=== PATIENT | female | born 1950 | race Caucasian/White ===

== ENCOUNTER → 2017-01-04 | Outpatient (CLI) | payer OTHER, MEDICAID ==
[2017-01-04 10:38] LABS: CREATININE 2.25 mg/dL (0.55-1.02)
--- NOTE | 2017-01-04 12:28 | CT ---
HISTORY: Weight loss, nicotine dependent Study: CT chest without contrast Comparison: None Technique: Axial non contrast images with coronal and sagittal reformats. Dose reduction procedures were use with MA/kv adjusted for body size. Intravenous contrast could not be administered due to th e patient's renal insufficiency. Findings: Examination of the mediastinum demonstrated no evidence for mediastinal masses. No enlarged mediasti nal or hilar adenopathy is identified. Minimal calcific atherosclerotic change is present in the aor ta. No pleural effusions are identified. No chest wall or axillary abnormality is identified. There is some spondylitic change in the thoracic spine. The lungs are mildly hyperinflated. No acute alveo lar infiltrates, areas of consolidation, nodules, masses, or bronchiectasis is identified. There is mild peribronchial thickening consistent with bronchitis which could be acute, chronic, or both. IMPRESSION: Mild hyperinflation Peribronchial thickening consistent with bronchitis which could be acute, chronic, or both Reported By:
--- NOTE | 2017-01-04 12:33 | CT ---
HISTORY: Weight loss Study: CT abdomen pelvis without contrast Comparison: None Technique: Axial non contrast images with coronal and sagittal reformats. Dose reduction procedures were used with MA/kv adjusted for body size. Intravenous contrast could not be administered due to t he patient's renal insufficiency. Findings: The lung bases are clear. The liver, spleen, adrenal glands, and pancreas are within normal limits t o the limitations of an unenhanced examination. The patient is status post cholecystectomy. There is dilatation of the common bile duct to 14 millimeters . This could be physiologic in due to post cho lecystectomy state however clinical and laboratory correlation is recommended in order to exclude an obstructive picture that would require evaluation with ERCP. The kidneys are unobstructed. No right renal calculi are identified. There is a 1.5 millimeter nonobstructing left upper pole renal calcul us. No ureteral calculi are identified. Calcific atherosclerotic change is present in a nondilated a bdominal aorta. No intraperitoneal or retroperitoneal lymphadenopathy is identified. The appendix is not identified. There are no secondary signs of appendicitis. There are no findings suggestive of d iverticulitis or colitis. Examination of the pelvis demonstrated no evidence for pelvic masses, pelv ic fluid, or pelvic lymphadenopathy. No bladder abnormality is identified. No lytic or blastic skele gagandeep lesions are identified. IMPRESSION: Dilatation of the common bile duct which may be physiologic and due to post cholecystectomy state, h owever, see recommendation as above No other significant findings on unenhanced examination Reported By:
== END ==
LOC: RAD 10:10
PROVIDERS: ATTEND Internal Medicine
DX: R63.4 Abnormal weight loss (principal); Z87.891 Personal history of nicotine dependence; R06.02 Shortness of breath; R05 Cough
CPT/HCPCS: 36415; 71250; 74176; 82565; 84520

== ENCOUNTER → 2017-01-23 | Outpatient (CLI) | payer OTHER, MEDICAID | LOC: RAD 10:14 | PROVIDERS: ATTEND Internal Medicine | DX: Z12.31 Encounter for screening mammogram for malignant neoplasm of breast (principal) | CPT/HCPCS: 77067 ==

== ENCOUNTER 2017-01-29 19:25 | Inpatient (IN) | payer MEDICARE, MEDICAID ==
--- NOTE | 2017-01-29 19:56 | DR.GENAD ---
HPI - PCP Primary Care Physician: sandi - HPI Comment HPI Comment: WORSE TODAY. PULSE LOW AND PATIENT HAVE NEAR SYNCOPAL FEELING. VERY WEAK. NO FEVER OR DYSURIA. NO NAUSEA OR VOMITING. - Complaint/Symptoms Chief Complaint Doctors Comments: GENERALIZE WEAKNESS, ANOREXIA, WEIGHT LOSS AND GENERAL MALAISE FOR SOME TIME. Chief Complaint:: weakness, tingling - Nurses notes reviewed Nurses Notes Review: Yes - Source History Provided: Patient, Family Member - Mode of Arrival Mode of Arrival: Wheelchair - Timing Onset of Chief Complaint: 01/26/17 Came on: Suddenly - Duration Duration: Constant Duration: Days - Severity Severity: Moderate PMH - PMH Past Medical History: Yes Past Medical History: Diabetes, Dyslipidemia, Hypertension Past Surgical History: Yes Surgical History: Appendectomy, Cholecystectomy, Hysterectomy - Family History History of Family Medical Conditions: Yes Family Medical History: Cancer - Social History Does patient currently use any type of tobacco product: No Have you used tobacco products in the last 12 months: No Type of Tobacco Use: None Does any household member use tobacco: No Alcohol Use: None Do you use any recreational Drugs:: No Lives With: Family Lives Where: Home - infectious screening In the last 2 months have you had wt loss of >10#?: NO Have you had fever, night sweats or hemotysis?: No Have you traveled outside the country in the last 6 months?: No Isolation: Standard ROS - Review of Systems Constitutional: Malaise, Weakness, Fatigue, Loss of Appetite. negative: Chills , Fever Eyes: No Symptoms Reported. negative: Eye Pain, Discharge ENTM: negative: Ear Pain, Nose Discharge, Nose Congestion, Throat Pain Respiratoy: Short of Breath (ON EXERSION). negative: Productive Cough, Non- Productive Cough, Wheezing, Hemoptysis Cardiovascular: negative: Chest Pain, Edema, Palpitations (BRADYCARDIA), Syncope (NEAR SYNCOPE) Gastrointestinal/Abdominal: No Symptoms Reported. negative: Abdominal Pain, Diarrhea, Nausea, Vomiting Genitourinary: No Symptoms Reported. negative: Dysuria, Frequency, Hematuria Neurological: Weakness, Dizziness. negative: Headache Musculoskeletal: Muscle Pain Integumentary: No Symptoms Reported Hematologic/Lymphatic: Easy Bruising Endocrine: No Symptoms Reported All Other Systems: Reviewed and Negative PE - Vital Signs Vitals: Temperature 98.5 F Pulse Rate [Left Radial] 73 Pulse Rate 42 Respiratory Rate 20 Blood Pressure [Left Arm] 180/77 Blood Pressure 199/78 O2 Sat by Pulse Oximetry 94 - General Limitations: No Limitations General Appearance: Alert - Head Head Exam: Normal Inspection - Eyes Eye exam: Normal Appearance - ENT ENT Exam: Normal External Ear Exam External Ear Exam: Normal External Inspection TM/Canal Exam: Bilateral Normal Nose Exam: Normal Nose Exam Mouth Exam: Normal Inspection Throat Exam: Normal Inspection - Neck Neck Exam: Trachea Midline - Chest Chest Inspection: Symmetric Chest Wall Rise - Respiratory Respiratory Exam: Normal Lung Sounds Bilat Respiratory Exam: Bilateral Clear to Auscultation - Cardiovascular Cardiovascular Exam: Regular Rate, Normal Rhythm, Normal Heart Sounds - Abdominal Exam Abdominal Exam: Normal Bowel Sounds, Soft. negative: Tenderness - Extremities Extremities Exam: Normal Inspection - Back Back Exam: Normal Inspection - Neurologic Neurological Exam: Alert, Oriented X3, CN II-XII Intact. negative: Motor Sensory Deficit, Reflexes Normal - Skin Skin Exam: Normal Color MDM - Additional Information Additional Information Obtained From: Family - Differential Diagnosis Differential Diagnosis: GENERALIZE WEAKNESS, BRADYCARDIA, NV, ELECTROLYTE ABNORMALITY Course - Treatment Treatment: SEE ORDERS. IV FLUIDS AND IV POTASSIUM IN ED. HELD IN ED UNTILL TROPONIN AND CARDIAC ENZYMES REPEATED IN 3 TO 4 HOURS. - Education/Counseling Education/Counseling: Patient, Family, Education Educated On: Treatment, Diagnosis, Needs for Follow Up ROR - Labs Reviewed Laboratory Results Reviewed?: Yes Result Diagrams: 01/31/17 04:46 01/31/17 04:46 Laboratory: WBC 9.5 X10^3/uL (3.6-10.0) 01/29/17 20:51 RBC 4.08 X10^6/uL (3.5-5.4) 01/29/17 20:51 Hgb 12.0 g/dL (12.0-16.0) 01/29/17 20:51 Hct 33.1 % (36.0-47.0) L 01/29/17 20:51 MCV 81.2 fL (80.0-100.0) 01/29/17 20:51 MCH 29.3 pg (27.0-34.0) 01/29/17 20:51 MCHC 36.1 g/dL (33.0-35.0) H 01/29/17 20:51 RDW 13.7 % (11.6-16.5) 01/29/17 20:51 Plt Count 257 X10^3/uL (150.0-450.0) 01/29/17 20:51 MPV 9.5 fL (7.4-11.0) 01/29/17 20:51 Neut % 62.8 % (42.0-75.0) 01/29/17 20:51 Lymph % 29.8 % (21.0-51.0) 01/29/17 20:51 Brantley % 4.9 % (0.0-13.0) 01/29/17 20:51 Eos % 1.7 % (0.9-2.9) 01/29/17 20:51 Baso % 0.8 % (0.2-1.0) 01/29/17 20:51 Neut # 6.0 x10^3/uL (2.2-4.8) H 01/29/17 20:51 Lymph # 2.8 X10^3/uL (1.3-2.9) 01/29/17 20:51 Brantley # 0.5 x10^3/uL (0.3-0.8) 01/29/17 20:51 Eos # 0.2 x10^3/uL (0.0-0.2) 01/29/17 20:51 Baso # 0.1 X10^3/uL (0.0-0.1) 01/29/17 20:51 Absolute Nucleated RBC 0.0 /100WBC 01/29/17 20:51 Sodium 137 mmol/L (136-145) 01/29/17 20:51 Corrected Sodium 137 mmol/L (136-145) 01/29/17 20:51 Potassium 1.7 mmol/L (3.5-5.1) L* 01/30/17 00:30 Chloride 92 mmol/L (98-107) L 01/29/17 20:51 Carbon Dioxide 38.9 mmol/L (21-32) H 01/29/17 20:51 BUN 13 mg/dL (7-18) 01/29/17 20:51 Creatinine 2.04 mg/dL (0.55-1.02) H 01/29/17 20:51 Est GFR (MDRD) Af Amer 31 (>60) L 01/29/17 20:51 Est GFR (MDRD) Non-Af 26 (>60) L 01/29/17 20:51 Glucose 114 mg/dL (65-99) H 01/29/17 20:51 Calcium 7.7 mg/dL (8.5-10.1) L 01/29/17 20:51 Corrected Calcium 9.0 mg/dL (8.5-10.1) 01/29/17 20:51 Magnesium 1.4 mg/dL (1.7-2.9) L 01/30/17 00:30 Total Bilirubin 1.30 mg/dL (0.2-1.0) H 01/29/17 20:51 AST 134 Units/L (15-37) H 01/29/17 20:51 ALT 47 Units/L (12-78) 01/29/17 20:51 Alkaline Phosphatase 78 Units/L (46-116) 01/29/17 20:51 Creatine Kinase 3253 Units/L (26-192) H 01/30/17 00:30 CK-MB (CK-2) 6.6 ng/mL (0-4.0) H* 01/30/17 00:30 CK/CKMB % Calc 0.2 % (<4) 01/30/17 00:30 Troponin I 0.44 ng/mL (0-1.5) 01/30/17 00:30 B-Natriuretic Peptide 568 pg/mL (0-79) H* 01/29/17 20:51 Total Protein 6.3 g/dL (6.4-8.2) L 01/29/17 20:51 Albumin 2.4 g/dL (3.4-5.0) L 01/29/17 20:51 Globulin 3.9 g/dL (2.5-4.5) 01/29/17 20:51 Albumin/Globulin Ratio 0.6 Ratio (1.1-2.1) L 01/29/17 20:51 Specimen Type Clean catch urine 01/29/17 23:25 Urine Color Pale yellow (YELLOW) 01/29/17 23:25 Urine Appearance Clear (CLEAR) 01/29/17 23:25 Urine pH 7.0 (5.0 - 8.0) 01/29/17 23:25 Ur Specific Magazine 1.005 (1.000-1.030) 01/29/17 23:25 Urine Protein 3+ (NEGATIVE) 01/29/17 23:25 Urine Glucose (UA) Negative (NEGATIVE) 01/29/17 23:25 Urine Ketones Negative (NEGATIVE) 01/29/17 23:25 Urine Occult Blood 5+ (NEGATIVE) 01/29/17 23:25 Urine Nitrite Negative (NEGATIVE) 01/29/17 23:25 Urine Bilirubin Negative (NEGATIVE) 01/29/17 23:25 Urine Urobilinogen Normal (NORMAL) 01/29/17 23:25 Ur Leukocyte Esterase Negative (NEGATIVE) 01/29/17 23:25 Urine RBC 25-30 /HPF (NEGATIVE) 01/29/17 23:25 Urine WBC 0-3 /HPF (NEGATIVE) 01/29/17 23:25 Ur Squamous Epith Cells Rare /HPF (NEGATIVE) 01/29/17 23:25 Urine Bacteria Trace /HPF (NEGATIVE) 01/29/17 23:25 Ur Culture Indicated? No/not indicated 01/29/17 23:25 - XRAY XRAY Interpreted by: Radiologist XRAY Findings: REPORT DISCUSS WITH PATIENT AND HER . - EKG Rhythm: NSR (EKG NOTED) - Diagnosis Discharge Problem: Acute hypokalemia, Abnormal cardiac enzyme level, Generalized weakness, Electrolyte abnormality, Bradycardia Rhabdomyolysis Qualifiers: Rhabdomyolysis type: non-traumatic Qualified Code(s): M62.82 - Rhabdomyolysis - Discharge Plan Disposition: 09 ADMITTED INPATIENT Condition: Stable - Follow ups/Referrals - Instructions
[2017-01-29 21:05] LABS: BASOPHILS # (AUTO) 0.1 X10^3/uL (0.0-0.1); BASOPHILS % (AUTO) 0.8 % (0.2-1.0); EOSINOPHILS # (AUTO) 0.2 x10^3/uL (0.0-0.2); EOSINOPHILS % (AUTO) 1.7 % (0.9-2.9); HEMATOCRIT 33.1 % (36.0-47.0); LYMPHOCYTES # (AUTO) 2.8 X10^3/uL (1.3-2.9); LYMPHOCYTES % (AUTO) 29.8 % (21.0-51.0); MEAN CORPUSCULAR HEMOGLOBIN 29.3 pg (27.0-34.0); MEAN CORPUSCULAR HGB CONC 36.1 g/dL (33.0-35.0); MEAN CORPUSCULAR VOLUME 81.2 fL (80.0-100.0); MEAN PLATELET VOLUME 9.5 fL (7.4-11.0); MONOCYTES # (AUTO) 0.5 x10^3/uL (0.3-0.8); MONOCYTES % (AUTO) 4.9 % (0.0-13.0); NEUTROPHILS % (AUTO) 62.8 % (42.0-75.0); PLATELET COUNT 257 X10^3/uL (150.0-450.0); RED BLOOD COUNT 4.08 X10^6/uL (3.5-5.4); RED CELL DISTRIBUTION WIDTH 13.7 % (11.6-16.5); WHITE BLOOD COUNT 9.5 X10^3/uL (3.6-10.0)
[2017-01-29 21:43] LABS: ALBUMIN 2.4 g/dL (3.4-5.0); CALCIUM 7.7 mg/dL (8.5-10.1); CARBON DIOXIDE 38.9 mmol/L (21-32); CREATININE 2.04 mg/dL (0.55-1.02); TOTAL PROTEIN 6.3 g/dL (6.4-8.2); TROPONIN I 0.38 ng/mL (0-1.5)
[2017-01-29 21:44] LABS: CKMB % 0.2 % (<4)
[2017-01-29 21:46] LABS: CREATINE KINASE MB 5.5 ng/mL (0-4.0)
--- NOTE | 2017-01-29 22:20 | RAD ---
Chest AP portable Indication: Weakness. Findings: Lungs are clear. Heart size upper limits of normal. There is no pneumothorax, effusion or consolidation. Shoulder degenerative changes noted. Impression: No acute chest process or change from CT of January 04, 2017. Reported By:
[2017-01-29] MEDS: NS + KCL 40 MEQ/L 1,000 ML IV SCH (22:24)
[2017-01-29 23:53] LABS: BILIRUBIN,URINE NEGATIVE (NEGATIVE); BLOOD/HEMOGLOBIN,URINE 5+ (NEGATIVE); GLUCOSE, URINE NEGATIVE (NEGATIVE); KETONES,URINE NEGATIVE (NEGATIVE); LEUKOCYTE ESTERASE ,URINE NEGATIVE (NEGATIVE); NITRITES,URINE NEGATIVE (NEGATIVE); PROTEIN,URINE 3+ (NEGATIVE); UROBILINOGEN,URINE NORMAL (NORMAL)
[2017-01-29 23:59] LABS: APPEARANCE,URINE CLEAR (CLEAR); BACTERIA,URINE TRACE /HPF (NEGATIVE); COLOR,URINE PALE YELLOW (YELLOW); RBC,URINE 25-30 /HPF (NEGATIVE); SQUAMOUS EPITHELIAL CELL,UR RARE /HPF (NEGATIVE)
[2017-01-30] MEDS ORDERED: POTASSIUM CHLORIDE LIQ 20 MEQ UDC PO ONE (01:03)
[2017-01-30 01:37] LABS: TROPONIN I 0.44 ng/mL (0-1.5)
[2017-01-30] MEDS ORDERED: POTASSIUM CHLORIDE LIQ 20 MEQ UDC ONE (01:37)
[2017-01-30 01:38] LABS: CKMB % 0.2 % (<4)
[2017-01-30 01:39] LABS: CREATINE KINASE MB 6.6 ng/mL (0-4.0)
[2017-01-30] MEDS ORDERED: MAGNESIUM SULFATE 50% INJ IM ONE (01:51)
[2017-01-30] MEDS ORDERED: MAGNESIUM SULFATE 50% INJ ONE (01:52)
[2017-01-30 04:45] VITALS: BMI 25.4
[2017-01-30 06:04] LABS: BASOPHILS # (AUTO) 0.1 X10^3/uL (0.0-0.1); BASOPHILS % (AUTO) 1.1 % (0.2-1.0); EOSINOPHILS # (AUTO) 0.1 x10^3/uL (0.0-0.2); HEMATOCRIT 34.9 % (36.0-47.0); HEMOGLOBIN 12.4 g/dL (12.0-16.0); LYMPHOCYTES # (AUTO) 2.3 X10^3/uL (1.3-2.9); LYMPHOCYTES % (AUTO) 26.1 % (21.0-51.0); MEAN CORPUSCULAR HEMOGLOBIN 29.4 pg (27.0-34.0); MEAN CORPUSCULAR HGB CONC 35.7 g/dL (33.0-35.0); MEAN CORPUSCULAR VOLUME 82.3 fL (80.0-100.0); MEAN PLATELET VOLUME 9.8 fL (7.4-11.0); MONOCYTES # (AUTO) 0.5 x10^3/uL (0.3-0.8); MONOCYTES % (AUTO) 5.8 % (0.0-13.0); NEUTROPHILS # (AUTO) 5.8 x10^3/uL (2.2-4.8); PLATELET COUNT 243 X10^3/uL (150.0-450.0); RED BLOOD COUNT 4.24 X10^6/uL (3.5-5.4); RED CELL DISTRIBUTION WIDTH 13.9 % (11.6-16.5); WHITE BLOOD COUNT 8.8 X10^3/uL (3.6-10.0)
[2017-01-30 06:06] LABS: ALANINE AMINOTRANSFERASE 47 Units/L (12-78); ALBUMIN 2.3 g/dL (3.4-5.0); ALKALINE PHOSPHATASE 74 Units/L (46-116); ASPARTATE AMINO TRANSFERASE 126 Units/L (15-37); BLOOD UREA NITROGEN 13 mg/dL (7-18); CALCIUM 7.9 mg/dL (8.5-10.1); CARBON DIOXIDE 37.6 mmol/L (21-32); CHLORIDE 100 mmol/L (98-107); COR CA(FOR HYPOALB) 9.3 mg/dL (8.5-10.1); CREATININE 1.89 mg/dL (0.55-1.02); GLUCOSE 106 mg/dL (65-99); SODIUM 145 mmol/L (136-145); eGFR BLACK RACES 34 (>60); eGFR NON BLACK RACES 28 (>60)
[2017-01-30 06:51] LABS: TROPONIN I 0.41 ng/mL (0-1.5)
[2017-01-30 06:54] LABS: CKMB % 0.2 % (<4); CREATINE KINASE MB 8.7 ng/mL (0-4.0)
[2017-01-30] MEDS: NS + KCL 40 MEQ/L 1,000 ML IV SCH (10:13)
[2017-01-30] MEDS: MAGNESIUM SULFATE 1 GM/100 mL PREMIX 1 GM/100 ML BAG IV SCH ×2 (11:46→12:58)
[2017-01-30 13:44] LABS: TROPONIN I 0.33 ng/mL (0-1.5)
[2017-01-30 13:48] LABS: CREATINE KINASE MB 11.7 ng/mL (0-4.0)
[2017-01-30 13:49] LABS: CKMB % 0.3 % (<4)
[2017-01-30] MEDS ORDERED: PATIENT'S HOME MEDICATION (Losartan/Hydrochlorothiazide [Hyzaar 100-25 Tablet] 1 TAB) PO SCH (14:15)
[2017-01-30] MEDS: PriLOSEC PO SCH (14:25)
--- NOTE | 2017-01-30 14:25 | DR.H&P ---
H&P - History & Physical for Day of: H&P Date: 01/30/17 - Chief Complaint Chief Complaint: IS A 66 YEAR OLD PATIENT OF OURS WHO PRESENTED TO THE EMERGENCY ROOM WITH COMPLAINTS OF WEAKNESS, TINGLING IN HANDS, LOSS OF APPETITE, UNEXPLAINTED WEIGHT LOSS, AND LOW HEART RATE. PATIENT REPORTS THAT SHE WEIGHED 185 LBS. TWO MONTHS AGO AND IS NOW 148 LBS. SHE REPORTS THAT THE WEAKNESS HAS PROGRESSIVLY GOTTEN WORSE OVER THE LAST THREE MONTHS. SHE WAS ALSO NOTED WITH COMPLAINTS OF BILATERAL LOWER EXTREMITY PAIN AND CRAMPING. SHE RATES PAIN A 6/10. ON ARRIVAL TO ER, VITALS WERE 98.5-42-16-98%-199/78. CBC WNL EXCEPT HCT 33.1. CMP REPORTED SODIUM 137, POTASSIUM CRITICAL LOW OF 1.5, CHLORIDE 92, CARBON DIOXIDE 38.9, CREATININE 2.04, GLUCOSE 114, CALCIUM 7.7, MAGNESIUM 1.4, TOTAL BILI 1.30, AST 134, CREATININE KINASE 3510, CK-MB CRITICAL HIGH OF 5.5. BNP 568, TOTAL PROTEIN 6.3, ALBUMIN 2.4. SHE WAS GIVEN POTASSIUM AND MAGNESIUM SUPPLEMENTS, HOWEVER, POTASSIUM REMAINED LOW AT 1.9 AND MAGNESIUM REMAINED LOW AT 1.4. CHEST XRAY WITHIN NORMAL LIMITS. HEART RATE WAS IN THE 40S ON ARRIVAL TO ER, BUT WHEN EKG WAS OBTAINED, PATIENT WAS NOTED TO BE IN ATRIAL FIBRILLATION. WE ADMITTED PATIENT FOR FURTHER TREATMENT AND EVALUATION. WE STARTED HER ON NS WITH 40MEQ KCL AT 80ML/HR, AND OTBS ACHS. WE PLAN TO CONTINUE SUPPLEMENTING WITH POTASSIUM AND MAGNESIUM. WE PLAN TO RECHECK LABS AND FOLLOW UP WITH PATIENT IN AM. ON THE MORNING FOLLOWING ADMISSION, CREATININE KINASE NOTED TO BE 3253, 3688. CK-MB 6.6, 8.7. TROPONIN 0.44, 0.41. PATIENT REPORTS THAT SHE WAS RECENTLY STARTED ON CRESTOR 40MG PO @ HS. I BELIEVE THAT THE PATIENT HAS RHABDOMYOLYSIS SECONDARY TO THE HIGH DOSE OF STATIN. WE WILL DISCONTINUE THE CRESTOR FROM HER HOME MEDICATIONS, CONTINUE IV FLUIDS, AND CONTINUE TO MONITOR. - Allergies Allergies/Adverse Reactions: Allergies Allergy/AdvReac Type Severity Reaction Status Date / Time cefoperazone [From Cefobid] Allergy Verified 01/29/17 20:52 ciprofloxacin [From Cipro] Allergy Verified 01/29/17 20:55 clindamycin Allergy Verified 01/29/17 20:55 gentamicin Allergy Verified 01/29/17 20:55 hydroxyzine [From Vistaril] Allergy Verified 01/29/17 20:53 memantine [From Namenda] Allergy Verified 01/29/17 20:55 Penicillins Allergy Verified 01/29/17 20:52 - Past Medical History Past Medical History: Anemia, Arthritis, Dementia, Diabetes, Dyslipidemia, GERD , Hypertension, PUD Additional Medical History: fibromyalgia, rheumatoid arthritis - Past Surgical History Surgical History: Hysterectomy, Ortho Surgery, Other Additional Surgical History: cataract removal - Family History Family Medical History: Diabetes Mellitus, Cancer, [place], Hypertension - Social History Does patient currently use any type of tobacco product: No Have you used tobacco products in the last 12 months: No Type of Tobacco Use: None Does any household member use tobacco: No Alcohol Use: None Drug Use: None - Medications Home Medications: Alprazolam [XANAX 0.5 MG *] 0.5 mg PO HS 01/30/17 [History Confirmed 01/30/17] Cholecalciferol (Vitamin D3) [Vitamin D3] 2 tabs PO DAILY 01/30/17 [History Confirmed 01/30/17] Hydrocodone/Acetaminophen [Hydrocodon-Acetaminophen 5-325] 1 tab PO TID PRN [History Confirmed 01/30/17] Losartan/Hydrochlorothiazide [Hyzaar 100-25 Tablet] 1 tab PO DAILY 01/30/17 [ History Confirmed 01/30/17] Magnesium Oxide [Magnesium] 250 mg PO BID 01/30/17 [History Confirmed 01/30/17] Metformin HCl [GLUCOPHAGE 500 MG *] 500 mg PO DAILY 01/30/17 [History Confirmed 01/30/17] Omeprazole [PRILOSEC 20 MG *] 20 mg PO DAILY 01/30/17 [History Confirmed ] Ondansetron [Zofran Odt] 1 tab PO Q4-6H PRN 01/30/17 [History Confirmed 01/30/17 ] Rosuvastatin Calcium [Crestor] 40 mg PO HS 01/30/17 [History Confirmed 01/30/17] Tramadol HCl [ULTRAM 50 MG *] 50 mg PO TID 01/30/17 [History Confirmed 01/30/17] - Review of Systems Constitutional: See HPI, Weakness. denies: No Symptoms Reported, Fever, Chills , Sweats, Malaise, Other Eyes: No Symptoms Reported. denies: See HPI, Pain, Vision Change, Conjunctivae Inflammation, Eyelid Inflammation, Redness, Other ENT: No Symptoms Reported. denies: See HPI, Ear Pain, Ear Discharge, Nose Pain , Nose Discharge, Nose Congestion, Mouth Pain, Mouth Swelling, Throat Pain, Throat Swelling, Other Respiratory: No Symptoms Reported. denies: See HPI, Cough, Dry, Shortness of Breath, Hemoptysis, SOB with Excertion, Pleuritic Pain, Sputum, Wheezing, Other Cardiovascular: No Symptoms Reported, See HPI. denies: Chest Pain, Palpitations , Orthopnea, Paroxysmal Noc. Dyspnea, Edema, Light Headedness, Other Gastrointestinal: No Symptoms Reported. denies: See HPI, Nausea, Vomiting, Abdominal Pain, Diarrhea, Constipation, Melena, Hematochezia, Other Genitourinary: No Symptoms Reported. denies: See HPI, Dysuria, Frequency, Incontinence, Hematuria, Retention, Other Musculoskeletal: No Symptoms Reported, Leg Pain (BILATERAL LEG PAIN AND CRAMPING ). denies: See HPI, Shoulder Pain, Arm Pain, Back Pain, Hand Pain, Foot Pain, Neck Pain, Other Skin: No Symptoms Reported. denies: See HPI, Rash, Lesions, Jaundice, Bruising , Wound, Ecchymosis, Other Neurological: See HPI, Weakness. denies: No Symptoms Reported, Numbness, Incoordination, Change in Speech, Confusion, Seizures, Other - Physical Exam Vital Signs: Temperature 98.0 F Pulse Rate [Left Brachial] 70 Pulse Rate [Left Radial] 73 Respiratory Rate 19 Blood Pressure [Left Arm] 158/71 O2 Sat by Pulse Oximetry 98 Oriented: Normal. negative: Time, Person, Place, Not Oriented, Unable to test, Other Eyes: Normal. negative: Blurred Vision, Diplopia, Discharge, Pain, Redness, Photophobia, Other Ear: Normal. negative: Right, Left, Swelling, Ecchymosis, Hemotypanum, Abrasion , Laceration Nose: Normal. negative: Injected, Discharge, Blood, Other Throat: Normal. negative: Tonsillar Hypertrophy, Red, Exudate, Dry, Other Respiratory: Clear Throughout. negative: Diminished Throughout, Rhonchi Throughout, Rales Throughout, Wheezes Throughout, RUL Clear, RML Clear, RLL Clear, DAVID Clear, LML Clear, LLL Clear, RUL Diminished, RML Diminished, RLL Diminished, DAVID Diminished, LML Diminished, LLL Diminished, RUL Absent, RML Absent, RLL Absent, DAVID Absent, LML Absent, LLL Absent, RUL Rhonchi, RML Rhonchi , RLL Rhonchi, DAVID Rhonchi, LML Rhonchi, LLL Rhonchi, RUL Insp. Wheeze, RML Insp. Wheeze, RLL Insp. Wheeze, DAVID Insp.Wheeze, LML Insp.Wheeze, LLL Insp.Wheeze, RUL Exp. Wheeze, RML Exp. Wheeze, RLL Exp. Wheeze, DAVID Exp. Wheeze , LML Exp. Wheeze, LLL Exp. Wheeze, RUL Rales, RML Rales, RLL Rales, DAVID Rales, LML Rales, LLL Rales, RUL Rub, RML Rub, RLL Rub, DAVID Rub, LML Rub, LLL Rub, RUL Squeak, RML Squeak, RLL Squeak, DAVID Squeak, LML Squeak, LLL Squeak Cardiovascular: Bradycardia. negative: Normal, Tachycardia, Irregular, S3, S4, Systolic, Diastolic, Murmur, Edema, Other : Normal. negative: Dysuria, Hematuria, Frequency, Discharge, Testicular Pain , Bleeding, , Other Auscultation: Bowel Sounds: Normal. negative: Bruit, Absent, Increased, Decreased, High Pitched, Other Palpation: Normal. negative: Spleen Enlarged, Liver Enlarged, Mass Pulsatile, Other Tenderness: Normal. negative: Diffuse, RUQ, RLQ, LUQ, LLQ, Epigastric, Periumbilical, Suprapubic, Mild, Moderate, Severe, Rebound, Guarding, Rigidity, Other Skin: Normal. negative: Decreased Turgur, Rash, Papular, Macular, Maculopapular , Vesicular, Pustular, Petechial, Red, Tender, Hot, Diaphoresis, Wound, Bruising , Ecchymosis, Other Musculoskeletal: Right, Left, Leg, Tender. negative: Normal, Shoulder, Clavicle , Arm, Elbow, Forearm, Wrist, Hand, Hip, Thigh, Knee, Ankle, Foot, Back:Thoracic , Back:Lumbar, Back:Midline, Back:Paraspinous, Pelvis, Swelling, Deformity, Pulse Deficit, Motor Deficit, Sensory Deficit, Instability, Crepitance Psychiatric: Normal. negative: Anxiety, Depression, Agitation, Other Mood Description: Calm. negative: Angry, Apathetic, Depressed, Fearful, Flat, Happy, Hostile, Sad, Suspicious, Withdrawn, Anxious, Appropriate, Labile Affect: Normal. negative: Angry, Anxious, Depressed, Flat, Hysterical, Quiet, Violent Speech Pattern: Clear. negative: Appropriate, Unclear, Inappropriate, Delayed, Slurred, Excessive, Aphasic, Artificially Ventilated - Assessment/Plan (1) Hypokalemia Status: Acute Plan: Ns with 40meq KCL @ 80ml/hr, continue to monitor (2) Hypomagnesemia Status: Acute Plan: Magnesium Sulfate 2 gm iv x 1 dose, continue to monitor labs (3) Rhabdomyolysis Qualifiers: Rhabdomyolysis type: non-traumatic Encounter type: E Qualified Code(s): M62.82 - Rhabdomyolysis Status: Acute Plan: Discontinue Crestor, continue IVF, continue to monitor
[2017-01-30] MEDS ORDERED: GLUCOPHAGE PO SCH (15:00)
[2017-01-30] MEDS: NORCO 5/325 MG TAB PO PRN (17:19)
[2017-01-30] MEDS: XANAX PO SCH (20:28)
[2017-01-30] MEDS: MAG-OX TAB PO SCH (20:28)
[2017-01-30 20:58] LABS: MAGNESIUM 2.4 mg/dL (1.7-2.9)
[2017-01-30] MEDS ORDERED: MAGNESIUM OXIDE 250 MG PO SCH (21:00)
[2017-01-30] MEDS: ULTRAM PO SCH (21:08)
[2017-01-30 21:31] LABS: TROPONIN I 0.27 ng/mL (0-1.5)
[2017-01-30 21:36] LABS: CKMB % 0.4 % (<4)
[2017-01-31] MEDS: NS + KCL 40 MEQ/L 1,000 ML IV SCH (01:55)
[2017-01-31 05:30] LABS: BASOPHILS # (AUTO) 0.1 X10^3/uL (0.0-0.1); BASOPHILS % (AUTO) 0.7 % (0.2-1.0); EOSINOPHILS # (AUTO) 0.4 x10^3/uL (0.0-0.2); HEMATOCRIT 32.3 % (36.0-47.0); HEMOGLOBIN 11.4 g/dL (12.0-16.0); LYMPHOCYTES # (AUTO) 2.8 X10^3/uL (1.3-2.9); LYMPHOCYTES % (AUTO) 34.3 % (21.0-51.0); MEAN CORPUSCULAR HEMOGLOBIN 29.1 pg (27.0-34.0); MEAN CORPUSCULAR HGB CONC 35.2 g/dL (33.0-35.0); MEAN CORPUSCULAR VOLUME 82.7 fL (80.0-100.0); MEAN PLATELET VOLUME 9.5 fL (7.4-11.0); MONOCYTES # (AUTO) 0.4 x10^3/uL (0.3-0.8); MONOCYTES % (AUTO) 5.2 % (0.0-13.0); NEUTROPHILS # (AUTO) 4.5 x10^3/uL (2.2-4.8); NEUTROPHILS % (AUTO) 54.8 % (42.0-75.0); PLATELET COUNT 252 X10^3/uL (150.0-450.0); RED CELL DISTRIBUTION WIDTH 14.1 % (11.6-16.5); WHITE BLOOD COUNT 8.1 X10^3/uL (3.6-10.0)
[2017-01-31 05:59] LABS: ALANINE AMINOTRANSFERASE 42 Units/L (12-78); ALBUMIN 2.1 g/dL (3.4-5.0); ALKALINE PHOSPHATASE 69 Units/L (46-116); ASPARTATE AMINO TRANSFERASE 98 Units/L (15-37); BLOOD UREA NITROGEN 11 mg/dL (7-18); CALCIUM 7.7 mg/dL (8.5-10.1); CARBON DIOXIDE 39.6 mmol/L (21-32); CHLORIDE 106 mmol/L (98-107); COR CA(FOR HYPOALB) 9.2 mg/dL (8.5-10.1); CREATININE 1.82 mg/dL (0.55-1.02); GLUCOSE 96 mg/dL (65-99); MAGNESIUM 2.4 mg/dL (1.7-2.9); SODIUM 148 mmol/L (136-145); TOTAL PROTEIN 5.5 g/dL (6.4-8.2); TROPONIN I 0.21 ng/mL (0-1.5); eGFR BLACK RACES 36 (>60); eGFR NON BLACK RACES 29 (>60)
[2017-01-31 06:03] LABS: CKMB % 0.3 % (<4)
[2017-01-31 06:04] LABS: CREATINE KINASE 2096 Units/L (26-192); CREATINE KINASE MB 5.7 ng/mL (0-4.0)
[2017-01-31] MEDS: ULTRAM PO SCH ×3 (06:11→21:31)
[2017-01-31] MEDS ORDERED: K-LYTE EFFERVESCENT PO ONE (06:12)
--- NOTE | 2017-01-31 06:26 | RAD ---
HISTORY: Shortness of breath Study: Chest one view Comparison: January 29, 2017 Findings: The heart is enlarged. The annabelle are normal. The aorta is calcified. No congestive heart failure is n oted. The lungs are free of acute alveolar infiltrates. No pleural effusions are identified. The bon y thorax is unremarkable with the exception of bilateral AC joint degenerative joint disease IMPRESSION: Cardiomegaly without congestive heart failure Lungs clear Reported By:
[2017-01-31] MEDS: HYZAAR 50/12.5 MG PO SCH (08:44)
[2017-01-31] MEDS: VITAMIN D3 PO SCH (08:44)
[2017-01-31] MEDS: PriLOSEC PO SCH (08:45)
[2017-01-31] MEDS: MAG-OX TAB PO SCH ×2 (08:45→20:52)
[2017-01-31] MEDS ORDERED: ALBUMIN HUMAN 25%- 100ML 100 ML IV SCH (09:00)
[2017-01-31] MEDS ORDERED: CHOLECALCIFEROL PO SCH (09:00)
[2017-01-31] MEDS ORDERED: K-LYTE EFFERVESCENT PO PRN (09:39)
[2017-01-31] MEDS ORDERED: K-RIDER 10 MEQ/NS 100 ML 10 MEQ/100 ML BAG IV PRN (09:39)
[2017-01-31] MEDS ORDERED: ALBUMIN HUMAN 25%- 100ML 100 ML IV ONE (09:55)
[2017-01-31] MEDS: NS 1000 ML 1,000 ML IV SCH ×2 (10:13→23:49)
[2017-01-31] MEDS: ALBUMIN HUMAN 25%- 100ML 200 ML IV SCH (10:13)
[2017-01-31] MEDS: POTASSIUM CHLORIDE LIQ 20 MEQ UDC PO PRN ×2 (10:52→16:44)
--- NOTE | 2017-01-31 14:07 | PCM.PROG ---
Progress Note - Progress Note for Day of Date: 01/31/17 - Subjective Subjective: WAS ALERT AND ORIENTED ON MORNING ROUNDS. SHE IS NOTED SITTING UP IN BED WITH FAMILY AT BEDSIDE. SHE CONTINUES WITH COMPLAINTS OF WEAKNESS AND LEGS CRAMPING. LUNGS ARE CLEAR TO AUSCULTATION. VITALS THIS AM ARE 98.8-73-21-97%-191/91. CBC REPORTS WBC 8.1, RBC 3.9, HGB 11.4, HCT 32.3. CMP REPORTS SODIUM 148, POTASSIUM CRITICAL LOW OF 1.9, BUN 11, CREATININE 1.82, GLUCOSE 96, CALCIUM 7.7, AST 98, ALT 42, TOTAL PROTEIN 5.5, ALBUMIN 2.1. CREATINE KINASE 2096, CK-MB 5.7, TROPONIN 0.21. CHEST XRAY CLEAR. WE WILL START ALBUMIN 25% 2 BAGS DAILY, CHANGE FLUIDS TO NORMAL SALINE, AND START POTASSIUM PROTOCOL. WE WILL PLAN TO RECHECK LABS AND FOLLOW UP WITH PATIENT IN AM. - Past Medical Family Social History Allergies: Allergies cefoperazone [From Cefobid] Allergy (Verified 01/29/17 20:52) ciprofloxacin [From Cipro] Allergy (Verified 01/29/17 20:55) clindamycin Allergy (Verified 01/29/17 20:55) gentamicin Allergy (Verified 01/29/17 20:55) hydroxyzine [From Vistaril] Allergy (Verified 01/29/17 20:53) memantine [From Namenda] Allergy (Verified 01/29/17 20:55) Penicillins Allergy (Verified 01/29/17 20:52) - Vital Signs and I&O's Vital Signs: Temperature 97.1 F Pulse Rate [Left Brachial] 74 Pulse Rate [Left Radial] 73 Respiratory Rate 26 Blood Pressure [Left Arm] 185/92 O2 Sat by Pulse Oximetry 98 Intake and Output: Intake & Output 01/29/17 01/30/17 01/31/17 02/01/17 11:59 11:59 11:59 11:59 Intake Total 3413 Output Total 1000 2000 Balance -1000 1413 - Physical Exam Oriented: Normal. negative: Time, Person, Place, Not Oriented, Unable to test, Other Eyes: Normal. negative: Blurred Vision, Diplopia, Discharge, Pain, Redness, Photophobia, Other Ear: Normal. negative: Right, Left, Swelling, Ecchymosis, Hemotypanum, Abrasion , Laceration Nose: Normal. negative: Injected, Discharge, Blood, Other Throat: Normal. negative: Tonsillar Hypertrophy, Red, Exudate, Dry, Other Respiratory: Normal Cardiovascular: Bradycardia. negative: Normal, Tachycardia, Irregular, S3, S4, Systolic, Diastolic, Murmur, Edema, Other : Normal. negative: Dysuria, Hematuria, Frequency, Discharge, Testicular Pain , Bleeding, , Other Auscultation: Bowel Sounds: Normal. negative: Bruit, Absent, Increased, Decreased, High Pitched, Other Palpation: Normal Tenderness: Normal. negative: Diffuse, RUQ, RLQ, LUQ, LLQ, Epigastric, Periumbilical, Suprapubic, Mild, Moderate, Severe, Rebound, Guarding, Rigidity, Other Skin: Normal. negative: Decreased Turgur, Rash, Papular, Macular, Maculopapular , Vesicular, Pustular, Petechial, Red, Tender, Hot, Diaphoresis, Wound, Bruising , Ecchymosis, Other Musculoskeletal: Right, Left, Leg, Tender. negative: Normal, Shoulder, Clavicle , Arm, Elbow, Forearm, Wrist, Hand, Hip, Thigh, Knee, Ankle, Foot, Back:Thoracic , Back:Lumbar, Back:Midline, Back:Paraspinous, Pelvis, Swelling, Deformity, Pulse Deficit, Motor Deficit, Sensory Deficit, Instability, Crepitance Psychiatric: Normal. negative: Anxiety, Depression, Agitation, Other Mood Description: Calm. negative: Angry, Apathetic, Depressed, Fearful, Flat, Happy, Hostile, Sad, Suspicious, Withdrawn, Anxious, Appropriate, Labile Affect: Normal. negative: Angry, Anxious, Depressed, Flat, Hysterical, Quiet, Violent Speech Pattern: Clear, Appropriate - Laboratory and Diagnostics Result Diagrams: 01/31/17 04:46 01/31/17 12:57 Labs: Laboratory WBC 8.1 X10^3/uL (3.6-10.0) 01/31/17 04:46 RBC 3.90 X10^6/uL (3.5-5.4) 01/31/17 04:46 Hgb 11.4 g/dL (12.0-16.0) L 01/31/17 04:46 Hct 32.3 % (36.0-47.0) L 01/31/17 04:46 MCV 82.7 fL (80.0-100.0) 01/31/17 04:46 MCH 29.1 pg (27.0-34.0) 01/31/17 04:46 MCHC 35.2 g/dL (33.0-35.0) H 01/31/17 04:46 RDW 14.1 % (11.6-16.5) 01/31/17 04:46 Plt Count 252 X10^3/uL (150.0-450.0) 01/31/17 04:46 MPV 9.5 fL (7.4-11.0) 01/31/17 04:46 Neut % 54.8 % (42.0-75.0) 01/31/17 04:46 Lymph % 34.3 % (21.0-51.0) 01/31/17 04:46 [place] % 5.2 % (0.0-13.0) 01/31/17 04:46 Eos % 5.0 % (0.9-2.9) H 01/31/17 04:46 Baso % 0.7 % (0.2-1.0) 01/31/17 04:46 Neut # 4.5 x10^3/uL (2.2-4.8) 01/31/17 04:46 Lymph # 2.8 X10^3/uL (1.3-2.9) 01/31/17 04:46 [place] # 0.4 x10^3/uL (0.3-0.8) 01/31/17 04:46 Eos # 0.4 x10^3/uL (0.0-0.2) H 01/31/17 04:46 Baso # 0.1 X10^3/uL (0.0-0.1) 01/31/17 04:46 Absolute Nucleated RBC 0.0 /100WBC 01/31/17 04:46 Sodium 148 mmol/L (136-145) H 01/31/17 04:46 Corrected Sodium TNP 01/31/17 04:46 Potassium 2.8 mmol/L (3.5-5.1) L* 01/31/17 12:57 Chloride 106 mmol/L (98-107) 01/31/17 04:46 Carbon Dioxide 39.6 mmol/L (21-32) H 01/31/17 04:46 BUN 11 mg/dL (7-18) 01/31/17 04:46 Creatinine 1.82 mg/dL (0.55-1.02) H 01/31/17 04:46 Est GFR (MDRD) Af Amer 36 (>60) L 01/31/17 04:46 Est GFR (MDRD) Non-Af 29 (>60) L 01/31/17 04:46 Glucose 96 mg/dL (65-99) 01/31/17 04:46 Calcium 7.7 mg/dL (8.5-10.1) L 01/31/17 04:46 Corrected Calcium 9.2 mg/dL (8.5-10.1) 01/31/17 04:46 Magnesium 2.4 mg/dL (1.7-2.9) 01/31/17 04:46 Total Bilirubin 0.80 mg/dL (0.2-1.0) 01/31/17 04:46 AST 98 Units/L (15-37) H 01/31/17 04:46 ALT 42 Units/L (12-78) 01/31/17 04:46 Alkaline Phosphatase 69 Units/L (46-116) 01/31/17 04:46 Creatine Kinase 2096 Units/L (26-192) H 01/31/17 04:46 CK-MB (CK-2) 5.7 ng/mL (0-4.0) H* 01/31/17 04:46 CK/CKMB % Calc 0.3 % (<4) 01/31/17 04:46 Troponin I 0.21 ng/mL (0-1.5) 01/31/17 04:46 B-Natriuretic Peptide 568 pg/mL (0-79) H* 01/29/17 20:51 Total Protein 5.5 g/dL (6.4-8.2) L 01/31/17 04:46 Albumin 2.1 g/dL (3.4-5.0) L 01/31/17 04:46 Globulin 3.4 g/dL (2.5-4.5) 01/31/17 04:46 Albumin/Globulin Ratio 0.6 Ratio (1.1-2.1) L 01/31/17 04:46 Specimen Type Clean catch urine 01/29/17 23:25 Urine Color Pale yellow (YELLOW) 01/29/17 23:25 Urine Appearance Clear (CLEAR) 01/29/17 23:25 Urine pH 7.0 (5.0 - 8.0) 01/29/17 23:25 Ur Specific [place] 1.005 (1.000-1.030) 01/29/17 23:25 Urine Protein 3+ (NEGATIVE) 01/29/17 23:25 Urine Glucose (UA) Negative (NEGATIVE) 01/29/17 23:25 Urine Ketones Negative (NEGATIVE) 01/29/17 23:25 Urine Occult Blood 5+ (NEGATIVE) 01/29/17 23:25 Urine Nitrite Negative (NEGATIVE) 01/29/17 23: Urine Bilirubin Negative (NEGATIVE) 01/29/17 23:25 Urine Urobilinogen Normal (NORMAL) 01/29/17 23:25 Ur Leukocyte Esterase Negative (NEGATIVE) 01/29/17 23:25 Urine RBC 25-30 /HPF (NEGATIVE) 01/29/17 23:25 Urine WBC 0-3 /HPF (NEGATIVE) 01/29/17 23:25 Ur Squamous Epith Cells Rare /HPF (NEGATIVE) 01/29/17 23:25 Urine Bacteria Trace /HPF (NEGATIVE) 01/29/17 23:25 Ur Culture Indicated? No/not indicated 01/29/17 23:25 - Plan (1) Hypokalemia Status: Acute Plan: POTASSIUM PROTOCOL, continue to monitor (2) Hypomagnesemia Status: Acute Plan: continue to monitor labs (3) Rhabdomyolysis Status: Acute Qualifiers: Rhabdomyolysis type: non-traumatic Encounter type: E Qualified Code(s): M62.82 - Rhabdomyolysis Plan: continue IVF, continue to monitor
[2017-01-31] MEDS: SNACK - Diabetic Appropriate PO SCH (20:00)
[2017-01-31] MEDS: XANAX PO SCH (20:52)
[2017-01-31] MEDS: K-DUR TAB 20 MEQ PO PRN (20:53)
[2017-02-01] MEDS: ULTRAM PO SCH ×3 (05:58→21:46)
[2017-02-01 06:16] LABS: BASOPHILS # (AUTO) 0.1 X10^3/uL (0.0-0.1); EOSINOPHILS # (AUTO) 0.5 x10^3/uL (0.0-0.2); EOSINOPHILS % (AUTO) 5.5 % (0.9-2.9); HEMATOCRIT 29.5 % (36.0-47.0); HEMOGLOBIN 10.5 g/dL (12.0-16.0); LYMPHOCYTES # (AUTO) 2.6 X10^3/uL (1.3-2.9); LYMPHOCYTES % (AUTO) 28.1 % (21.0-51.0); MEAN CORPUSCULAR HEMOGLOBIN 29.8 pg (27.0-34.0); MEAN CORPUSCULAR HGB CONC 35.4 g/dL (33.0-35.0); MEAN PLATELET VOLUME 9.5 fL (7.4-11.0); MONOCYTES # (AUTO) 0.4 x10^3/uL (0.3-0.8); NEUTROPHILS # (AUTO) 5.8 x10^3/uL (2.2-4.8); NEUTROPHILS % (AUTO) 61.4 % (42.0-75.0); PLATELET COUNT 224 X10^3/uL (150.0-450.0); RED BLOOD COUNT 3.52 X10^6/uL (3.5-5.4); RED CELL DISTRIBUTION WIDTH 14.5 % (11.6-16.5); WHITE BLOOD COUNT 9.4 X10^3/uL (3.6-10.0)
[2017-02-01 06:58] LABS: ALANINE AMINOTRANSFERASE 38 Units/L (12-78); ALBUMIN 2.8 g/dL (3.4-5.0); ALKALINE PHOSPHATASE 63 Units/L (46-116); ASPARTATE AMINO TRANSFERASE 72 Units/L (15-37); BLOOD UREA NITROGEN 10 mg/dL (7-18); CALCIUM 7.6 mg/dL (8.5-10.1); CARBON DIOXIDE 35.4 mmol/L (21-32); CHLORIDE 107 mmol/L (98-107); COR CA(FOR HYPOALB) 8.6 mg/dL (8.5-10.1); GLUCOSE 89 mg/dL (65-99); SODIUM 147 mmol/L (136-145); eGFR BLACK RACES 36 (>60); eGFR NON BLACK RACES 30 (>60)
[2017-02-01 07:28] LABS: CREATINE KINASE MB 3.9 ng/mL (0-4.0); TROPONIN I 0.24 ng/mL (0-1.5)
[2017-02-01 07:35] LABS: CKMB % 0.3 % (<4)
[2017-02-01] MEDS: POTASSIUM CHLORIDE LIQ 20 MEQ UDC PO PRN ×2 (08:25→17:16)
[2017-02-01] MEDS: ALBUMIN HUMAN 25%- 100ML 200 ML IV SCH (08:25)
[2017-02-01] MEDS: PriLOSEC PO SCH (08:27)
[2017-02-01] MEDS: HYZAAR 50/12.5 MG PO SCH (08:27)
[2017-02-01] MEDS: MAG-OX TAB PO SCH ×2 (08:28→21:45)
[2017-02-01] MEDS: VITAMIN D3 PO SCH (08:29)
[2017-02-01] MEDS: NORVASC TAB 5 MG PO SCH (10:48)
[2017-02-01] MEDS: NORCO 5/325 MG TAB PO PRN (10:48)
--- NOTE | 2017-02-01 10:49 | PCM.PROG ---
Progress Note - Progress Note for Day of Date: 02/01/17 - Subjective Subjective: WAS ALERT AND ORIENTED, SITTING UP IN BED ON MORNING ROUNDS. SHE REPORTS WEAKNESS AND TIGHTNESS TO CHEST. SHE REPORTS THAT CRAMPING TO HER LEGS HAS RESOLVED. LUNGS ARE NOTED WITH WHEEZING BILATERALLY ON AUSCULTATION. VITALS THIS AM ARE 98.4-77-21-95%-170/88. CBC WNL EXCEPT HGB 10.5 , HCT 29.5. CMP REPORTS SODIUM 147, POTASSIUM CRITICAL LOW OF 2.9, CARBON DIOXIDE 35.4, BUN 10, CREATININE 1.80, GLUCOSE 89, CALCIUM 7.6, AST 72, ALT 38, TOTAL PROTEIN 6.0, ALBUMIN 2.8. CREATINE KINASE 1255, CK-MB 3.9, TROPONIN 0.24. WE WILL DISCONTINUE HYZAAR, AND START PATIENT ON LOSARTAN 100MG BID AND AMLODIPINE 5MG DAILY AND CONTINUE WITH CURRENT PLAN OF CARE. WE WILL CHECK A CHEST XRAY AND EKG. WE WILL PLAN TO RECHECK LABS AND FOLLOW UP WITH PATIENT IN AM. - Past Medical Family Social History Past Med/Fam/Surg Hx: No changes since H&P Allergies: Allergies cefoperazone [From Cefobid] Allergy (Verified 01/29/17 20:52) ciprofloxacin [From Cipro] Allergy (Verified 01/29/17 20:55) clindamycin Allergy (Verified 01/29/17 20:55) gentamicin Allergy (Verified 01/29/17 20:55) hydroxyzine [From Vistaril] Allergy (Verified 01/29/17 20:53) memantine [From Namenda] Allergy (Verified 01/29/17 20:55) Penicillins Allergy (Verified 01/29/17 20:52) - Review of Systems ROS: No change since H&P - Vital Signs and I&O's Vital Signs: Temperature 97.9 F Pulse Rate [Left Brachial] 94 Pulse Rate [Left Radial] 73 Respiratory Rate 23 Blood Pressure [Left Arm] 209/87 O2 Sat by Pulse Oximetry 93 Intake and Output: Intake & Output 01/29/17 01/30/17 01/31/17 02/01/17 11:59 11:59 11:59 11:59 Intake Total 3413 4307 Output Total 1000 2000 Balance -1000 1413 4307 - Physical Exam Oriented: Normal. negative: Time, Person, Place, Not Oriented, Unable to test, Other Eyes: Normal. negative: Blurred Vision, Diplopia, Discharge, Pain, Redness, Photophobia, Other Ear: Normal. negative: Right, Left, Swelling, Ecchymosis, Hemotypanum, Abrasion , Laceration Nose: Normal. negative: Injected, Discharge, Blood, Other Throat: Normal. negative: Tonsillar Hypertrophy, Red, Exudate, Dry, Other Respiratory: Right, Left, Wheezes. negative: Normal, Generalized, Superior, Inferior, Diminished, Rales, Rhonchi, OTHER Cardiovascular: Bradycardia. negative: Normal, Tachycardia, Irregular, S3, S4, Systolic, Diastolic, Murmur, Edema, Other : Normal. negative: Dysuria, Hematuria, Frequency, Discharge, Testicular Pain , Bleeding, , Other Auscultation: Bowel Sounds: Normal. negative: Bruit, Absent, Increased, Decreased, High Pitched, Other Palpation: Normal Tenderness: Normal. negative: Diffuse, RUQ, RLQ, LUQ, LLQ, Epigastric, Periumbilical, Suprapubic, Mild, Moderate, Severe, Rebound, Guarding, Rigidity, Other Skin: Normal. negative: Decreased Turgur, Rash, Papular, Macular, Maculopapular , Vesicular, Pustular, Petechial, Red, Tender, Hot, Diaphoresis, Wound, Bruising , Ecchymosis, Other Musculoskeletal: Normal. negative: Right, Left, Shoulder, Clavicle, Arm, Elbow , Forearm, Wrist, Hand, Hip, Thigh, Knee, Leg, Ankle, Foot, Back:Thoracic, Back: Lumbar, Back:Midline, Back:Paraspinous, Pelvis, Swelling, Tender, Deformity, Pulse Deficit, Motor Deficit, Sensory Deficit, Instability, Crepitance Psychiatric: Normal. negative: Anxiety, Depression, Agitation, Other Mood Description: Calm. negative: Angry, Apathetic, Depressed, Fearful, Flat, Happy, Hostile, Sad, Suspicious, Withdrawn, Anxious, Appropriate, Labile Affect: Normal. negative: Angry, Anxious, Depressed, Flat, Hysterical, Quiet, Violent Speech Pattern: Clear, Appropriate - Laboratory and Diagnostics Result Diagrams: 02/01/17 05:40 02/01/17 05:40 Labs: Laboratory WBC 9.4 X10^3/uL (3.6-10.0) 02/01/17 05:40 RBC 3.52 X10^6/uL (3.5-5.4) 02/01/17 05:40 Hgb 10.5 g/dL (12.0-16.0) L 02/01/17 05:40 Hct 29.5 % (36.0-47.0) L 02/01/17 05:40 MCV 84.0 fL (80.0-100.0) 02/01/17 05:40 MCH 29.8 pg (27.0-34.0) 02/01/17 05:40 MCHC 35.4 g/dL (33.0-35.0) H 02/01/17 05:40 RDW 14.5 % (11.6-16.5) 02/01/17 05:40 Plt Count 224 X10^3/uL (150.0-450.0) 02/01/17 05:40 MPV 9.5 fL (7.4-11.0) 02/01/17 05:40 Neut % 61.4 % (42.0-75.0) 02/01/17 05:40 Lymph % 28.1 % (21.0-51.0) 02/01/17 05:40 [place] % 4.0 % (0.0-13.0) 02/01/17 05:40 Eos % 5.5 % (0.9-2.9) H 02/01/17 05:40 Baso % 1.0 % (0.2-1.0) 02/01/17 05:40 Neut # 5.8 x10^3/uL (2.2-4.8) H 02/01/17 05:40 Lymph # 2.6 X10^3/uL (1.3-2.9) 02/01/17 05:40 [place] # 0.4 x10^3/uL (0.3-0.8) 02/01/17 05:40 Eos # 0.5 x10^3/uL (0.0-0.2) H 02/01/17 05:40 Baso # 0.1 X10^3/uL (0.0-0.1) 02/01/17 05:40 Absolute Nucleated RBC 0.0 /100WBC 02/01/17 05:40 Sodium 147 mmol/L (136-145) H 02/01/17 05:40 Corrected Sodium TNP 02/01/17 05:40 Potassium 2.9 mmol/L (3.5-5.1) L* 02/01/17 05:40 Chloride 107 mmol/L (98-107) 02/01/17 05:40 Carbon Dioxide 35.4 mmol/L (21-32) H 02/01/17 05:40 BUN 10 mg/dL (7-18) 02/01/17 05:40 Creatinine 1.80 mg/dL (0.55-1.02) H 02/01/17 05:40 Est GFR (MDRD) Af Amer 36 (>60) L 02/01/17 05:40 Est GFR (MDRD) Non-Af 30 (>60) L 02/01/17 05:40 Glucose 89 mg/dL (65-99) 02/01/17 05:40 Calcium 7.6 mg/dL (8.5-10.1) L 02/01/17 05:40 Corrected Calcium 8.6 mg/dL (8.5-10.1) 02/01/17 05:40 Phosphorus 1.7 mg/dL (2.6-4.7) L 01/31/17 16:00 Magnesium 2.4 mg/dL (1.7-2.9) 01/31/17 04:46 Total Bilirubin 0.80 mg/dL (0.2-1.0) 02/01/17 05:40 AST 72 Units/L (15-37) H 02/01/17 05:40 ALT 38 Units/L (12-78) 02/01/17 05:40 Alkaline Phosphatase 63 Units/L (46-116) 02/01/17 05:40 Creatine Kinase 1255 Units/L (26-192) H 02/01/17 05:40 CK-MB (CK-2) 3.9 ng/mL (0-4.0) 02/01/17 05:40 CK/CKMB % Calc 0.3 % (<4) 02/01/17 05:40 Troponin I 0.24 ng/mL (0-1.5) 02/01/17 05:40 B-Natriuretic Peptide 568 pg/mL (0-79) H* 01/29/17 20:51 Total Protein 6.0 g/dL (6.4-8.2) L 02/01/17 05:40 Albumin 2.8 g/dL (3.4-5.0) L 02/01/17 05:40 Globulin 3.2 g/dL (2.5-4.5) 02/01/17 05:40 Albumin/Globulin Ratio 0.9 Ratio (1.1-2.1) L 02/01/17 05:40 Specimen Type Clean catch urine 01/29/17 23:25 Urine Color Pale yellow (YELLOW) 01/29/17 23:25 Urine Appearance Clear (CLEAR) 01/29/17 23:25 Urine pH 7.0 (5.0 - 8.0) 01/29/17 23:25 Ur Specific [place] 1.005 (1.000-1.030) 01/29/17 23:25 Urine Protein 3+ (NEGATIVE) 01/29/17 23:25 Urine Glucose (UA) Negative (NEGATIVE) 01/29/17 23:25 Urine Ketones Negative (NEGATIVE) 01/29/17 23:25 Urine Occult Blood 5+ (NEGATIVE) 01/29/17 23:25 Urine Nitrite Negative (NEGATIVE) 01/29/17 23:25 Urine Bilirubin Negative (NEGATIVE) 01/29/17 23:25 Urine Urobilinogen Normal (NORMAL) 01/29/17 23:25 Ur Leukocyte Esterase Negative (NEGATIVE) 01/29/17 23:25 Urine RBC 25-30 /HPF (NEGATIVE) 01/29/17 23:25 Urine WBC 0-3 /HPF (NEGATIVE) 01/29/17 23:25 Ur Squamous Epith Cells Rare /HPF (NEGATIVE) 01/29/17 23:25 Urine Bacteria Trace /HPF (NEGATIVE) 01/29/17 23:25 Ur Culture Indicated? No/not indicated 01/29/17 23:25 - Plan (1) Hypokalemia Status: Acute Plan: POTASSIUM PROTOCOL, continue to monitor (2) Hypomagnesemia Status: Acute Plan: continue to monitor labs (3) Rhabdomyolysis Status: Acute Qualifiers: Rhabdomyolysis type: non-traumatic Encounter type: E Qualified Code(s): M62.82 - Rhabdomyolysis Plan: continue IVF, continue to monitor (4) Hypertension Status: Chronic Qualifiers: Hypertension type: essential hypertension Qualified Code(s): I10 - Essential (primary) hypertension Plan: LOSARTAN 100MG BID, AMLODIPINE 5MG DAILY, CONTINUE TO MONITOR (5) Anxiety Status: Chronic Plan: CONTINUE XANAX, CONTINUE TO MONITOR (6) GERD (gastroesophageal reflux disease) Status: Chronic Qualifiers: Esophagitis presence: esophagitis presence not specified Qualified Code(s) : K21.9 - Gastro-esophageal reflux disease without esophagitis Plan: CONTINUE PRILOSEC, CONTINUE TO MONITOR
--- NOTE | 2017-02-01 11:15 | RAD ---
HISTORY: Shortness of breath Study: Single view of the chest. Comparison: 01/31/2017 Findings: Mild cardiomegaly. Worsening of interstitial thickening bilaterally with trace left pleural effusion . No focal consolidations, or pneumothorax. Osseous structures demonstrate no acute abnormality. IMPRESSION: 1. Development of mild pulmonary edema and trace left pleural effusion. Reported By:
[2017-02-01 11:41] LABS: CKMB % 0.4 % (<4); TROPONIN I 0.64 ng/mL (0-1.5)
[2017-02-01] MEDS: NS 1000 ML 1,000 ML IV SCH ×2 (13:34→16:22)
[2017-02-01 15:32] LABS: CKMB % 0.5 % (<4); CREATINE KINASE MB 4.7 ng/mL (0-4.0)
[2017-02-01 19:35] LABS: TROPONIN I 0.95 ng/mL (0-1.5)
[2017-02-01] MEDS: SNACK - Diabetic Appropriate PO SCH (19:41)
[2017-02-01 19:43] LABS: CKMB % 0.5 % (<4); CREATINE KINASE MB 4.8 ng/mL (0-4.0)
[2017-02-01] MEDS: COZAAR PO SCH (21:46)
[2017-02-01] MEDS: XANAX PO SCH (21:48)
[2017-02-02] MEDS: ULTRAM PO SCH ×3 (06:04→21:52)
[2017-02-02] MEDS: NS 1000 ML 1,000 ML IV SCH ×2 (06:07→18:30)
[2017-02-02 06:30] LABS: ALANINE AMINOTRANSFERASE 33 Units/L (12-78); ALKALINE PHOSPHATASE 66 Units/L (46-116); ASPARTATE AMINO TRANSFERASE 50 Units/L (15-37); BLOOD UREA NITROGEN 9 mg/dL (7-18); CALCIUM 8.3 mg/dL (8.5-10.1); CARBON DIOXIDE 32.3 mmol/L (21-32); CHLORIDE 104 mmol/L (98-107); COR CA(FOR HYPOALB) 9.1 mg/dL (8.5-10.1); CREATININE 1.77 mg/dL (0.55-1.02); GLUCOSE 101 mg/dL (65-99); SODIUM 143 mmol/L (136-145); TOTAL PROTEIN 5.8 g/dL (6.4-8.2); eGFR BLACK RACES 37 (>60); eGFR NON BLACK RACES 30 (>60)
[2017-02-02] MEDS: POTASSIUM CHLORIDE LIQ 20 MEQ UDC PO PRN ×2 (06:40→10:56)
[2017-02-02 06:56] LABS: BASOPHILS # (AUTO) 0.1 X10^3/uL (0.0-0.1); BASOPHILS % (AUTO) 1.2 % (0.2-1.0); EOSINOPHILS # (AUTO) 0.4 x10^3/uL (0.0-0.2); EOSINOPHILS % (AUTO) 3.5 % (0.9-2.9); HEMATOCRIT 29.7 % (36.0-47.0); HEMOGLOBIN 10.5 g/dL (12.0-16.0); LYMPHOCYTES # (AUTO) 2.5 X10^3/uL (1.3-2.9); LYMPHOCYTES % (AUTO) 24.6 % (21.0-51.0); MEAN CORPUSCULAR HEMOGLOBIN 29.6 pg (27.0-34.0); MEAN CORPUSCULAR HGB CONC 35.2 g/dL (33.0-35.0); MEAN CORPUSCULAR VOLUME 84.1 fL (80.0-100.0); MEAN PLATELET VOLUME 9.3 fL (7.4-11.0); MONOCYTES # (AUTO) 0.4 x10^3/uL (0.3-0.8); MONOCYTES % (AUTO) 4.1 % (0.0-13.0); NEUTROPHILS # (AUTO) 6.7 x10^3/uL (2.2-4.8); NEUTROPHILS % (AUTO) 66.6 % (42.0-75.0); PLATELET COUNT 223 X10^3/uL (150.0-450.0); RED BLOOD COUNT 3.53 X10^6/uL (3.5-5.4); RED CELL DISTRIBUTION WIDTH 14.6 % (11.6-16.5); WHITE BLOOD COUNT 10.1 X10^3/uL (3.6-10.0)
[2017-02-02] MEDS: ALBUMIN HUMAN 25%- 100ML 200 ML IV SCH ×2 (09:12→09:16)
[2017-02-02] MEDS: NORVASC TAB 5 MG PO SCH (09:16)
[2017-02-02] MEDS: VITAMIN D3 PO SCH (09:17)
[2017-02-02] MEDS: MAG-OX TAB PO SCH ×2 (09:17→21:52)
[2017-02-02] MEDS: COZAAR PO SCH ×2 (09:18→21:52)
[2017-02-02] MEDS: PriLOSEC PO SCH (09:18)
--- NOTE | 2017-02-02 10:05 | RAD ---
HISTORY: Shortness of breath Study: Portable chest Comparison: Yesterday Findings: The trachea is midline. The cardiac silhouette is unremarkable. There is improvement in vascular c ongestion and pulmonary edema since yesterday. There is a minimal left pleural effusion as before. . The bony thorax is unremarkable. IMPRESSION: 1. Resolving vascular congestion and pulmonary edema with minimal left pleural effusion Reported By:
[2017-02-02] MEDS ORDERED: ALBUMIN HUMAN 25%- 100ML 100 ML IV SCH (10:18)
--- NOTE | 2017-02-02 10:37 | PCM.PROG ---
Progress Note - Progress Note for Day of Date: 02/02/17 - Subjective Subjective: WAS ALERT AND ORIENTED, SITTING UP IN BED ON MORNING ROUNDS. SHE REPORTS FEELING WELL, OTHER THAN MILD SHORTNESS OF BREATH. SHE DENIES CHEST PAIN THIS MORNING OR THROUGHOUT THE NIGHT. LUNGS ARE NOTED CLEAR ON AUSCULTATION. VITALS THIS AM ARE 98.3-85-24-95%-151/75. CBC WNL EXCEPT WBC 10.1, HGB 10.5, HCT 29.7. CMP REPORTS SODIUM 143, POTASSIUM CRITICAL LOW OF 3.0 , CARBON DIOXIDE 32.3, BUN 9, CREATININE 1.77, GLUCOSE 101, CALCIUM 8.3, MAGNESIUM 1.6, AST 50, ALT 33, TOTAL PROTEIN 5.8, ALBUMIN 3.0. CREATINE KINASE 1025, CK-MB 4.8, TROPONIN 0.95. WE WILL GIVE MAGNESIUM SULFATE 2 GM IV AND CONTINUE WITH CURRENT PLAN OF CARE. WE WILL PLAN TO RECHECK LABS AND XRAY AND PLAN TO DISCHARGE PATIENT IN AM IF STABLE. - Past Medical Family Social History Past Med/Fam/Surg Hx: No changes since H&P Allergies: Allergies cefoperazone [From Cefobid] Allergy (Verified 01/29/17 20:52) ciprofloxacin [From Cipro] Allergy (Verified 01/29/17 20:55) clindamycin Allergy (Verified 01/29/17 20:55) gentamicin Allergy (Verified 01/29/17 20:55) hydroxyzine [From Vistaril] Allergy (Verified 01/29/17 20:53) memantine [From Namenda] Allergy (Verified 01/29/17 20:55) Penicillins Allergy (Verified 01/29/17 20:52) - Review of Systems ROS: No change since H&P - Vital Signs and I&O's Vital Signs: Temperature 98.3 F Pulse Rate [Left Brachial] 93 Pulse Rate [Left Radial] 73 Respiratory Rate 21 Blood Pressure [Left Arm] 170/90 O2 Sat by Pulse Oximetry 93 Intake and Output: Intake & Output 01/30/17 01/31/17 02/01/17 02/02/17 11:59 11:59 11:59 11:59 Intake Total 3413 4307 2662 Output Total 1000 2000 Balance -1000 1413 4307 2662 - Physical Exam Oriented: Normal. negative: Time, Person, Place, Not Oriented, Unable to test, Other Eyes: Normal. negative: Blurred Vision, Diplopia, Discharge, Pain, Redness, Photophobia, Other Ear: Normal. negative: Right, Left, Swelling, Ecchymosis, Hemotypanum, Abrasion , Laceration Nose: Normal. negative: Injected, Discharge, Blood, Other Throat: Normal. negative: Tonsillar Hypertrophy, Red, Exudate, Dry, Other Respiratory: Normal. negative: Right, Left, Generalized, Superior, Inferior, Diminished, Wheezes, Rales, Rhonchi, OTHER Cardiovascular: Bradycardia. negative: Normal, Tachycardia, Irregular, S3, S4, Systolic, Diastolic, Murmur, Edema, Other : Normal. negative: Dysuria, Hematuria, Frequency, Discharge, Testicular Pain , Bleeding, , Other Auscultation: Bowel Sounds: Normal. negative: Bruit, Absent, Increased, Decreased, High Pitched, Other Palpation: Normal Tenderness: Normal. negative: Diffuse, RUQ, RLQ, LUQ, LLQ, Epigastric, Periumbilical, Suprapubic, Mild, Moderate, Severe, Rebound, Guarding, Rigidity, Other Skin: Normal. negative: Decreased Turgur, Rash, Papular, Macular, Maculopapular , Vesicular, Pustular, Petechial, Red, Tender, Hot, Diaphoresis, Wound, Bruising , Ecchymosis, Other Musculoskeletal: Normal. negative: Right, Left, Shoulder, Clavicle, Arm, Elbow , Forearm, Wrist, Hand, Hip, Thigh, Knee, Leg, Ankle, Foot, Back:Thoracic, Back: Lumbar, Back:Midline, Back:Paraspinous, Pelvis, Swelling, Tender, Deformity, Pulse Deficit, Motor Deficit, Sensory Deficit, Instability, Crepitance Psychiatric: Normal. negative: Anxiety, Depression, Agitation, Other Mood Description: Calm. negative: Angry, Apathetic, Depressed, Fearful, Flat, Happy, Hostile, Sad, Suspicious, Withdrawn, Anxious, Appropriate, Labile Affect: Normal. negative: Angry, Anxious, Depressed, Flat, Hysterical, Quiet, Violent Speech Pattern: Clear, Appropriate - Laboratory and Diagnostics Result Diagrams: 02/02/17 06:34 02/02/17 09:50 Labs: Laboratory WBC 10.1 X10^3/uL (3.6-10.0) H 02/02/17 06:34 RBC 3.53 X10^6/uL (3.5-5.4) 02/02/17 06:34 Hgb 10.5 g/dL (12.0-16.0) L 02/02/17 06:34 Hct 29.7 % (36.0-47.0) L 02/02/17 06:34 MCV 84.1 fL (80.0-100.0) 02/02/17 06:34 MCH 29.6 pg (27.0-34.0) 02/02/17 06:34 MCHC 35.2 g/dL (33.0-35.0) H 02/02/17 06:34 RDW 14.6 % (11.6-16.5) 02/02/17 06:34 Plt Count 223 X10^3/uL (150.0-450.0) 02/02/17 06:34 MPV 9.3 fL (7.4-11.0) 02/02/17 06:34 Neut % 66.6 % (42.0-75.0) 02/02/17 06:34 Lymph % 24.6 % (21.0-51.0) 02/02/17 06:34 [place] % 4.1 % (0.0-13.0) 02/02/17 06:34 Eos % 3.5 % (0.9-2.9) H 02/02/17 06:34 Baso % 1.2 % (0.2-1.0) H 02/02/17 06:34 Neut # 6.7 x10^3/uL (2.2-4.8) H 02/02/17 06:34 Lymph # 2.5 X10^3/uL (1.3-2.9) 02/02/17 06:34 [place] # 0.4 x10^3/uL (0.3-0.8) 02/02/17 06:34 Eos # 0.4 x10^3/uL (0.0-0.2) H 02/02/17 06:34 Baso # 0.1 X10^3/uL (0.0-0.1) 02/02/17 06:34 Absolute Nucleated RBC 0.0 /100WBC 02/02/17 06:34 Sodium 143 mmol/L (136-145) 02/02/17 05:10 Corrected Sodium TNP 02/02/17 05:10 Potassium 3.6 mmol/L (3.5-5.1) 02/02/17 09:50 Chloride 104 mmol/L (98-107) 02/02/17 05:10 Carbon Dioxide 32.3 mmol/L (21-32) H 02/02/17 05:10 BUN 9 mg/dL (7-18) 02/02/17 05:10 Creatinine 1.77 mg/dL (0.55-1.02) H 02/02/17 05:10 Est GFR (MDRD) Af Amer 37 (>60) L 02/02/17 05:10 Est GFR (MDRD) Non-Af 30 (>60) L 02/02/17 05:10 Glucose 101 mg/dL (65-99) H 02/02/17 05:10 Calcium 8.3 mg/dL (8.5-10.1) L 02/02/17 05:10 Corrected Calcium 9.1 mg/dL (8.5-10.1) 02/02/17 05:10 Phosphorus 1.7 mg/dL (2.6-4.7) L 01/31/17 16:00 Magnesium 1.6 mg/dL (1.7-2.9) L 02/02/17 05:10 Total Bilirubin 1.20 mg/dL (0.2-1.0) H 02/02/17 05:10 AST 50 Units/L (15-37) H 02/02/17 05:10 ALT 33 Units/L (12-78) 02/02/17 05:10 Alkaline Phosphatase 66 Units/L (46-116) 02/02/17 05:10 Creatine Kinase 1025 Units/L (26-192) H 02/01/17 18:39 CK-MB (CK-2) 4.8 ng/mL (0-4.0) H* 02/01/17 18:39 CK/CKMB % Calc 0.5 % (<4) 02/01/17 18:39 Troponin I 0.95 ng/mL (0-1.5) 02/01/17 18:39 B-Natriuretic Peptide 568 pg/mL (0-79) H* 01/29/17 20:51 Total Protein 5.8 g/dL (6.4-8.2) L 02/02/17 05:10 Albumin 3.0 g/dL (3.4-5.0) L 02/02/17 05:10 Globulin 2.8 g/dL (2.5-4.5) 02/02/17 05:10 Albumin/Globulin Ratio 1.1 Ratio (1.1-2.1) 02/02/17 05:10 Specimen Type Clean catch urine 01/29/17 23:25 Urine Color Pale yellow (YELLOW) 01/29/17 23:25 Urine Appearance Clear (CLEAR) 01/29/17 23:25 Urine pH 7.0 (5.0 - 8.0) 01/29/17 23:25 Ur Specific [place] 1.005 (1.000-1.030) 01/29/17 23:25 Urine Protein 3+ (NEGATIVE) 01/29/17 23:25 Urine Glucose (UA) Negative (NEGATIVE) 01/29/17 23:25 Urine Ketones Negative (NEGATIVE) 01/29/17 23:25 Urine Occult Blood 5+ (NEGATIVE) 01/29/17 23:25 Urine Nitrite Negative (NEGATIVE) 01/29/17 23:25 Urine Bilirubin Negative (NEGATIVE) 01/29/17 23:25 Urine Urobilinogen Normal (NORMAL) 01/29/17 23:25 Ur Leukocyte Esterase Negative (NEGATIVE) 01/29/17 23:25 Urine RBC 25-30 /HPF (NEGATIVE) 01/29/17 23:25 Urine WBC 0-3 /HPF (NEGATIVE) 01/29/17 23:25 Ur Squamous Epith Cells Rare /HPF (NEGATIVE) 01/29/17 23:25 Urine Bacteria Trace /HPF (NEGATIVE) 01/29/17 23:25 Ur Culture Indicated? No/not indicated 01/29/17 23:25 - Plan (1) Hypokalemia Status: Acute Plan: POTASSIUM PROTOCOL, continue to monitor (2) Hypomagnesemia Status: Acute Plan: magnesium sulfate 2 gm iv today, continue to monitor labs (3) Rhabdomyolysis Status: Acute Qualifiers: Rhabdomyolysis type: non-traumatic Encounter type: E Qualified Code(s): M62.82 - Rhabdomyolysis Plan: continue IVF, continue to monitor (4) Hypertension Status: Chronic Qualifiers: Hypertension type: essential hypertension Qualified Code(s): I10 - Essential (primary) hypertension Plan: LOSARTAN 100MG BID, AMLODIPINE 5MG DAILY, CONTINUE TO MONITOR (5) Anxiety Status: Chronic Plan: CONTINUE XANAX, CONTINUE TO MONITOR (6) GERD (gastroesophageal reflux disease) Status: Chronic Qualifiers: Esophagitis presence: esophagitis presence not specified Qualified Code(s) : K21.9 - Gastro-esophageal reflux disease without esophagitis Plan: CONTINUE PRILOSEC, CONTINUE TO MONITOR
[2017-02-02] MEDS: MAGNESIUM SULFATE 1 GM/100 mL PREMIX 1 GM/100 ML BAG IV SCH ×2 (10:49→11:55)
[2017-02-02] MEDS: K-DUR TAB 20 MEQ PO PRN (10:55)
[2017-02-02] MEDS: SNACK - Diabetic Appropriate PO SCH (19:18)
[2017-02-02] MEDS: XANAX PO SCH (21:53)
[2017-02-03] MEDS: ULTRAM PO SCH ×3 (06:26→14:59)
[2017-02-03] MEDS: NS 1000 ML 1,000 ML IV SCH (06:28)
[2017-02-03 07:37] LABS: BASOPHILS # (AUTO) 0.1 X10^3/uL (0.0-0.1); BASOPHILS % (AUTO) 0.8 % (0.2-1.0); EOSINOPHILS # (AUTO) 0.3 x10^3/uL (0.0-0.2); EOSINOPHILS % (AUTO) 3.4 % (0.9-2.9); HEMATOCRIT 27.8 % (36.0-47.0); HEMOGLOBIN 9.8 g/dL (12.0-16.0); LYMPHOCYTES # (AUTO) 2.2 X10^3/uL (1.3-2.9); LYMPHOCYTES % (AUTO) 22.8 % (21.0-51.0); MEAN CORPUSCULAR HEMOGLOBIN 29.6 pg (27.0-34.0); MEAN CORPUSCULAR HGB CONC 35.1 g/dL (33.0-35.0); MEAN CORPUSCULAR VOLUME 84.4 fL (80.0-100.0); MEAN PLATELET VOLUME 8.8 fL (7.4-11.0); MONOCYTES # (AUTO) 0.4 x10^3/uL (0.3-0.8); MONOCYTES % (AUTO) 4.2 % (0.0-13.0); NEUTROPHILS # (AUTO) 6.5 x10^3/uL (2.2-4.8); NEUTROPHILS % (AUTO) 68.8 % (42.0-75.0); PLATELET COUNT 206 X10^3/uL (150.0-450.0); RED CELL DISTRIBUTION WIDTH 14.3 % (11.6-16.5); WHITE BLOOD COUNT 9.5 X10^3/uL (3.6-10.0)
[2017-02-03 07:51] LABS: ALBUMIN 2.9 g/dL (3.4-5.0); CALCIUM 8.3 mg/dL (8.5-10.1); CARBON DIOXIDE 32.1 mmol/L (21-32); COR CA(FOR HYPOALB) 9.2 mg/dL (8.5-10.1); CREATININE 2.11 mg/dL (0.55-1.02); TOTAL PROTEIN 5.7 g/dL (6.4-8.2)
[2017-02-03] MEDS: VITAMIN D3 PO SCH (09:19)
[2017-02-03] MEDS: NORVASC TAB 5 MG PO SCH (09:20)
[2017-02-03] MEDS: MAG-OX TAB PO SCH (09:20)
[2017-02-03] MEDS: PriLOSEC PO SCH (09:20)
[2017-02-03] MEDS: COZAAR PO SCH (09:21)
[2017-02-03 14:14] VITALS: BP 177/92
--- NOTE | 2017-02-03 22:00 | RAD ---
Portable chest Indication: Dyspnea and weakness Comparison: February 02, 2017 Impression: There stable cardiomegaly with continued interval improvement in vascular congestion and now minimal interstitial edema. Tiny left basilar effusion appears similar. No new abnormality. Reported By:
== END 2017-02-03 14:30 | disposition home or self-care (01) | DRG 641 ==
LOC: ER 19:25 → ICU 01-30 02:43
PROVIDERS: ADMIT Internal Medicine; ATTEND Internal Medicine
DX: E87.6 Hypokalemia (principal); M62.82 Rhabdomyolysis; N17.8 Other acute kidney failure; R00.1 Bradycardia, unspecified; R55 Syncope and collapse; R53.83 Other fatigue; R09.02 Hypoxemia; E78.2 Mixed hyperlipidemia; I12.9 Hypertensive chronic kidney disease with stage 1 through stage 4 chronic kidney disease, or unspecified chronic kidney disease; E11.65 Type 2 diabetes mellitus with hyperglycemia; R94.31 Abnormal electrocardiogram [ECG] [EKG]; I48.91 Unspecified atrial fibrillation; E83.42 Hypomagnesemia; F41.8 Other specified anxiety disorders; K21.9 Gastro-esophageal reflux disease without esophagitis; R06.02 Shortness of breath; N18.9 Chronic kidney disease, unspecified; R26.89 Other abnormalities of gait and mobility; E87.8 Other disorders of electrolyte and fluid balance, not elsewhere classified; M79.605 Pain in left leg; M79.604 Pain in right leg
CPT/HCPCS: 36415; 71010; 80053; 81001; 82550; 82553; 83735; 83880; 84100; 84132; 84484; 85025; 93005; 93041; 96365; 96367; 96372; 96374; 97535; 99238; 99284; A4222; P9047; J3475

== ENCOUNTER 2017-07-30 13:19 | Emergency (ER) | payer OTHER, MEDICAID ==
[2017-07-30 13:24] VITALS: BP 121/55; BMI 24.0
--- NOTE | 2017-07-30 14:05 | DR.URIAD ---
HPI - PCP Primary Care Physician: LIU - Complaint Chief Complaint:: PT. C/O DIZZINESS, FATIGUE, CHEST CONGESTION, DIARRHEA AND FEVER X 3 DAYS. Self Treatment fo Chief Complaint: taking OTC meds for cough which are helping some. Spouse worried about lack of energy and decreased appetite. Pt w/hx low K+ and Mg last year and spouse worried about recurrence. - Source History Provided: Patient - Mode of Arrival Mode of Arrival: Ambulatory - Timing Onset of Chief Complaint: 07/27/17 PMH - PMH Past Medical History: Yes Past Medical History: Diabetes, Dyslipidemia, Hypertension Past Medical History Comment: hx hypokalemia Past Surgical History: Yes Surgical History: Appendectomy, Cholecystectomy, Hysterectomy - Family History History of Family Medical Conditions: Yes Family Medical History: Cancer - Social History Does patient currently use any type of tobacco product: No Have you used tobacco products in the last 12 months: No Type of Tobacco Use: None Does any household member use tobacco: No Alcohol Use: None Do you use any recreational Drugs:: No Lives With: Spouse Lives Where: Home - infectious screening In the last 2 months have you had wt loss of >10#?: NO Have you had fever, night sweats or hemotysis?: No Have you traveled outside the country in the last 6 months?: No Isolation: Standard ROS - Review of Systems Constitutional: Chills, Fever, Malaise, Weakness, Fatigue, Loss of Appetite Eyes: No Symptoms Reported ENTM: Nose Discharge, Nose Congestion Respiratoy: Non-Productive Cough Cardiovascular: No Symptoms Reported Gastrointestinal/Abdominal: Diarrhea Genitourinary: No Symptoms Reported Neurological: Headache, Weakness Musculoskeletal: Joint Pain, Muscle Pain Integumentary: No Symptoms Reported Hematologic/Lymphatic: No Symptoms Reported Endocrine: No Symptoms Reported Psychiatric: No Symptoms Reported All Other Systems: Reviewed and Negative PE - Vital Signs Vitals: Temperature 99.2 F Pulse Rate 78 Respiratory Rate 17 Blood Pressure [Left Arm] 177/92 Blood Pressure 121/55 O2 Sat by Pulse Oximetry 99 - General Limitations: No Limitations General Appearance: Alert, In No Apparent Distress - Head Head Exam: Normal Inspection - Eyes Eye exam: Normal Appearance - ENT ENT Exam: Normal Exam, Normal Oropharynx External Ear Exam: Normal External Inspection Throat Exam: Normal Inspection. negative: Tonsillar Erythema, Tonsillar Exudate - Neck Neck Exam: Normal Inspection, Full ROM, Trachea Midline. negative: Lymphadenopathy - Chest Chest Inspection: Normal Inspection, Symmetric Chest Wall Rise - Respiratory Respiratory Exam: Normal Lung Sounds Bilat Respiratory Exam: Bilateral Clear to Auscultation - Abdominal Exam Abdominal Exam: Normal Inspection, Normal Bowel Sounds, Soft. negative: Tenderness, Guarding, Rebound - Extremeties Extremities Exam: Normal Inspection, Full ROM, Normal Capillary Refill. negative: Edema - Neurologic Neurological Exam: Alert, Oriented X3 - Psychiatric Psychiatric Exam: Normal Affect, Normal Mood ROR - Labs Reviewed Laboratory Results Reviewed?: Yes Result Diagrams: 07/30/17 14:07 07/30/17 14:07 Laboratory: WBC 5.6 X10^3/uL (3.6-10.0) 07/30/17 14:07 RBC 4.25 X10^6/uL (3.5-5.4) 07/30/17 14:07 Hgb 12.6 g/dL (12.0-16.0) 07/30/17 14:07 Hct 36.3 % (36.0-47.0) 07/30/17 14:07 MCV 85.4 fL (80.0-100.0) 07/30/17 14:07 MCH 29.6 pg (27.0-34.0) 07/30/17 14:07 MCHC 34.7 g/dL (33.0-35.0) 07/30/17 14:07 RDW 13.5 % (11.6-16.5) 07/30/17 14:07 Plt Count 133 X10^3/uL (150.0-450.0) L 07/30/17 14:07 MPV 9.1 fL (7.4-11.0) 07/30/17 14:07 Neut % 60.1 % (42.0-75.0) 07/30/17 14:07 Lymph % 31.2 % (21.0-51.0) 07/30/17 14:07 [place] % 8.2 % (0.0-13.0) 07/30/17 14:07 Eos % 0.0 % (0.9-2.9) L 07/30/17 14:07 Baso % 0.5 % (0.2-1.0) 07/30/17 14:07 Neut # 3.4 x10^3/uL (2.2-4.8) 07/30/17 14:07 Lymph # 1.8 X10^3/uL (1.3-2.9) 07/30/17 14:07 [place] # 0.5 x10^3/uL (0.3-0.8) 07/30/17 14:07 Eos # 0.0 x10^3/uL (0.0-0.2) 07/30/17 14:07 Baso # 0.0 X10^3/uL (0.0-0.1) 07/30/17 14:07 Absolute Nucleated RBC 0.0 /100WBC 07/30/17 14:07 Sodium 136 mmol/L (136-145) 07/30/17 14:07 Corrected Sodium TNP 07/30/17 14:07 Potassium 5.0 mmol/L (3.5-5.1) 07/30/17 14:07 Chloride 104 mmol/L (98-107) 07/30/17 14:07 Carbon Dioxide 22.0 mmol/L (21-32) 07/30/17 14:07 BUN 44 mg/dL (7-18) H 07/30/17 14:07 Creatinine 3.06 mg/dL (0.55-1.02) H 07/30/17 14:07 Est GFR (MDRD) Af Amer 20 (>60) L 07/30/17 14:07 Est GFR (MDRD) Non-Af 16 (>60) L 07/30/17 14:07 Glucose 89 mg/dL (65-99) 07/30/17 14:07 Calcium 8.3 mg/dL (8.5-10.1) L 07/30/17 14:07 Corrected Calcium 9.5 mg/dL (8.5-10.1) 07/30/17 14:07 Total Bilirubin 0.30 mg/dL (0.2-1.0) 07/30/17 14:07 AST 43 Units/L (15-37) H 07/30/17 14:07 ALT 24 Units/L (12-78) 07/30/17 14:07 Alkaline Phosphatase 78 Units/L (46-116) 07/30/17 14:07 Total Protein 6.5 g/dL (6.4-8.2) 07/30/17 14:07 Albumin 2.5 g/dL (3.4-5.0) L 07/30/17 14:07 Globulin 4.0 g/dL (2.5-4.5) 07/30/17 14:07 Albumin/Globulin Ratio 0.6 Ratio (1.1-2.1) L 07/30/17 14:07 Influenza Type A (PCR) Negative (NEGATIVE) 07/30/17 13:41 Influenza Type B (PCR) Positive (NEGATIVE) A 07/30/17 13:41 - Other Results Comments: flu B +. volume depletion - Diagnosis Discharge Problem: Influenza - Discharge Plan Disposition: HOME, SELF-CARE Condition: Stable Prescriptions: Oseltamivir Phosphate [Tamiflu] 75 mg PO BID #10 cap - Follow ups/Referrals Follow ups/Referrals: Jace Vo [Primary Care Provider] - 3 days - Instructions Additional Notes - Additional Notes Additional Notes: felt lots better after IVF, reassured with normal K+. Will Rx Tamiflu
[2017-07-30 14:20] LABS: BASOPHILS % (AUTO) 0.5 % (0.2-1.0); HEMATOCRIT 36.3 % (36.0-47.0); HEMOGLOBIN 12.6 g/dL (12.0-16.0); LYMPHOCYTES # (AUTO) 1.8 X10^3/uL (1.3-2.9); LYMPHOCYTES % (AUTO) 31.2 % (21.0-51.0); MEAN CORPUSCULAR HEMOGLOBIN 29.6 pg (27.0-34.0); MEAN CORPUSCULAR HGB CONC 34.7 g/dL (33.0-35.0); MEAN CORPUSCULAR VOLUME 85.4 fL (80.0-100.0); MEAN PLATELET VOLUME 9.1 fL (7.4-11.0); MONOCYTES # (AUTO) 0.5 x10^3/uL (0.3-0.8); MONOCYTES % (AUTO) 8.2 % (0.0-13.0); NEUTROPHILS # (AUTO) 3.4 x10^3/uL (2.2-4.8); NEUTROPHILS % (AUTO) 60.1 % (42.0-75.0); PLATELET COUNT 133 X10^3/uL (150.0-450.0); RED BLOOD COUNT 4.25 X10^6/uL (3.5-5.4); RED CELL DISTRIBUTION WIDTH 13.5 % (11.6-16.5); WHITE BLOOD COUNT 5.6 X10^3/uL (3.6-10.0)
[2017-07-30 14:33] LABS: ALANINE AMINOTRANSFERASE 24 Units/L (12-78); ALBUMIN 2.5 g/dL (3.4-5.0); ALKALINE PHOSPHATASE 78 Units/L (46-116); ASPARTATE AMINO TRANSFERASE 43 Units/L (15-37); BLOOD UREA NITROGEN 44 mg/dL (7-18); CALCIUM 8.3 mg/dL (8.5-10.1); CHLORIDE 104 mmol/L (98-107); COR CA(FOR HYPOALB) 9.5 mg/dL (8.5-10.1); CREATININE 3.06 mg/dL (0.55-1.02); SODIUM 136 mmol/L (136-145); TOTAL PROTEIN 6.5 g/dL (6.4-8.2); eGFR BLACK RACES 20 (>60); eGFR NON BLACK RACES 16 (>60)
[2017-07-30] MEDS ORDERED: NS 1000 ML 1,000 ML IV ONE (14:41)
[2017-07-30] MEDS ORDERED: NS 1000 ML 1,000 ML ONE (14:47)
== END 2017-07-30 16:30 | disposition home or self-care (01) ==
LOC: ER 13:32
DX: J10.1 Influenza due to other identified influenza virus with other respiratory manifestations (principal)
CPT/HCPCS: 36415; 80053; 85025; 87502; 96365; 99282; 99283; A4222

== ENCOUNTER 2020-08-03 12:48 | Inpatient (IN) ==
--- NOTE | 2020-08-03 13:01 | DR.NAUSEAF ---
HPI Time Seen Time Seen by Provider: 08/03/20 13:01 HPI Comment HPI Comment: Patient presents with recurrent/persistent N/V. Seen in the ED last night for the same. Evaluated and treated and dc to home. notes that within a few hours, patient was again vomiting. COVID-19 Coronavirus risk:travel/contact w/high risk person: No Has patient experienced Coronavirus symptoms: No PMH PMH Past Medical History: Diabetes, Dyslipidemia and Hypertension Past Surgical History: Yes Surgical History: Appendectomy, Cholecystectomy and Hysterectomy Family History Family Medical History: Cancer Social History Do you use any recreational Drugs:: No Travel Risk Coronavirus risk:travel/contact w/high risk person: No Has patient experienced Coronavirus symptoms: No ROS Review of Systems Constitutional: See HPI Gastrointestinal/Abdominal: Nausea and Vomiting PE Vital Signs Vitals: Temperature 98.2 F Pulse Rate [Left Radial] 79 Pulse Rate 102 Respiratory Rate 18 Blood Pressure [Left Arm] 164/69 Blood Pressure 210/95 O2 Sat by Pulse Oximetry 100 General Limitations: No Limitations General Appearance: Alert and In No Apparent Distress Head Head Exam: Normal Inspection, Atraumatic and Normocephalic Eyes Eye exam: Normal Appearance and EOMI ENT ENT Exam: Normal Exam Neck Neck Exam: Normal Inspection, Full ROM and Trachea Midline Chest Chest Inspection: Normal Inspection Respiratory Respiratory Exam: Normal Lung Sounds Bilat Abdominal Exam Abdominal Exam: Normal Inspection, Soft and Tenderness (diffuse) Abdominal Tenderness: Diffuse and Mild Neurologic Neurological Exam: Alert and Oriented X3 Psychiatric Psychiatric Exam: Normal Affect and Normal Mood Skin Skin Exam: Warm, Dry and Intact COURSE Consultation Consultation Comments: Spoke with Dr. Vo, who accepts this patient for admission to his service. ROR Labs Reviewed Laboratory Results Reviewed?: Yes Result Diagrams: 08/03/20 13:51 08/03/20 13:51 Laboratory: WBC 7.0 X10^3/uL (3.6-10.0) 08/03/20 13:51 RBC 3.48 X10^6/uL (3.5-5.4) L 08/03/20 13:51 Hgb 9.9 g/dL (12.0-16.0) L 08/03/20 13:51 Hct 29.9 % (36.0-47.0) L 08/03/20 13:51 MCV 86.0 fL (80.0-100.0) 08/03/20 13:51 MCH 28.5 pg (27.0-34.0) 08/03/20 13:51 MCHC 33.2 g/dL (33.0-35.0) 08/03/20 13:51 RDW 14.1 % (11.6-16.5) 08/03/20 13:51 Plt Count 264 X10^3/uL (150.0-450.0) 08/03/20 13:51 MPV 8.3 fL (7.4-11.0) 08/03/20 13:51 Neut % (Auto) 72.1 % (42.0-75.0) 08/03/20 13:51 Lymph % (Auto) 22.0 % (21.0-51.0) 08/03/20 13:51 [place] % (Auto) 4.7 % (0.0-13.0) 08/03/20 13:51 Eos % (Auto) 0.8 % (0.9-2.9) L 08/03/20 13:51 Baso % (Auto) 0.4 % (0.2-1.0) 08/03/20 13:51 Neut # (Auto) 5.0 x10^3/uL (2.2-4.8) H 08/03/20 13:51 Lymph # (Auto) 1.5 X10^3/uL (1.3-2.9) 08/03/20 13:51 [place] # (Auto) 0.3 x10^3/uL (0.3-0.8) 08/03/20 13:51 Eos # (Auto) 0.1 x10^3/uL (0.0-0.2) 08/03/20 13:51 Baso # (Auto) 0.0 X10^3/uL (0.0-0.1) 08/03/20 13:51 Absolute Nucleated RBC 0.0 /100WBC 08/03/20 13:51 Sodium 138 mmol/L (136-145) 08/03/20 13:51 Corrected Sodium TNP 08/03/20 13:51 Potassium 4.7 mmol/L (3.5-5.1) 08/03/20 13:51 Chloride 108 mmol/L (98-107) H 08/03/20 13:51 Carbon Dioxide 18.8 mmol/L (21-32) L 08/03/20 13:51 BUN 40 mg/dL (7-18) H 08/03/20 13:51 Creatinine 3.85 mg/dL (0.55-1.02) H 08/03/20 13:51 Est GFR (MDRD) Af Amer 15 (>60) L 08/03/20 13:51 Est GFR (MDRD) Non-Af 12 (>60) L 08/03/20 13:51 Glucose 102 mg/dL (65-99) H 08/03/20 13:51 Calcium 8.6 mg/dL (8.5-10.1) 08/03/20 13:51 Corrected Calcium 10.0 mg/dL (8.5-10.1) 08/03/20 13:51 Total Bilirubin 0.60 mg/dL (0.2-1.0) 08/03/20 13:51 AST 19 Units/L (15-37) 08/03/20 13:51 ALT 9 Units/L (12-78) L 08/03/20 13:51 Alkaline Phosphatase 89 Units/L (46-116) 08/03/20 13:51 Total Protein 6.0 g/dL (6.4-8.2) L 08/03/20 13:51 Albumin 2.3 g/dL (3.4-5.0) L 08/03/20 13:51 Globulin 3.7 g/dL (2.5-4.5) 08/03/20 13:51 Albumin/Globulin Ratio 0.6 Ratio (1.1-2.1) L 08/03/20 13:51 Amylase 70 Units/L (25-115) 08/03/20 13:51 Lipase 175 Units/L (73-393) 08/03/20 13:51 Opioid Opioid Risk Tool Age (Wiley box if 16-45): No History of Preadolescent Sexual Abuse: No Total: 0 Total Score Risk Category: Low Risk Copyright: Jacob FOX predicting aberrant behaviors Diagnosis Discharge Problem: Vomiting Qualifiers: Vomiting type: unspecified Vomiting Intractability: unspecified Nausea presence: with nausea Qualified Code(s): R11.2 - Nausea with vomiting, unspecified Acute on chronic kidney failure Qualifiers: Acute renal failure type: unspecified Chronic kidney disease stage: unspecified stage Qualified Code(s): N17.9 - Acute kidney failure, unspecified
[2020-08-03] MEDS ORDERED: ZOFRAN INJ 4 MG VIAL IVP ONE (13:38)
[2020-08-03] MEDS ORDERED: NS 1000 ML 1,000 ML IV ONE (13:38)
[2020-08-03] MEDS ORDERED: NS 1000 ML 1,000 ML ONE ×2 (13:43→17:38)
[2020-08-03] MEDS ORDERED: ZOFRAN INJ 4 MG VIAL ONE ×2 (13:43→18:55)
[2020-08-03 14:02] LABS: BASOPHILS % (AUTO) 0.4 % (0.2-1.0); EOSINOPHILS # (AUTO) 0.1 x10^3/uL (0.0-0.2); EOSINOPHILS % (AUTO) 0.8 % (0.9-2.9); HEMATOCRIT 29.9 % (36.0-47.0); HEMOGLOBIN 9.9 g/dL (12.0-16.0); LYMPHOCYTES # (AUTO) 1.5 X10^3/uL (1.3-2.9); MEAN CORPUSCULAR HEMOGLOBIN 28.5 pg (27.0-34.0); MEAN CORPUSCULAR HGB CONC 33.2 g/dL (33.0-35.0); MEAN PLATELET VOLUME 8.3 fL (7.4-11.0); MONOCYTES # (AUTO) 0.3 x10^3/uL (0.3-0.8); MONOCYTES % (AUTO) 4.7 % (0.0-13.0); NEUTROPHILS % (AUTO) 72.1 % (42.0-75.0); PLATELET COUNT 264 X10^3/uL (150.0-450.0); RED BLOOD COUNT 3.48 X10^6/uL (3.5-5.4); RED CELL DISTRIBUTION WIDTH 14.1 % (11.6-16.5)
[2020-08-03 14:15] LABS: ALANINE AMINOTRANSFERASE 9 Units/L (12-78); ALBUMIN 2.3 g/dL (3.4-5.0); ALKALINE PHOSPHATASE 89 Units/L (46-116); AMYLASE 70 Units/L (25-115); ASPARTATE AMINO TRANSFERASE 19 Units/L (15-37); BLOOD UREA NITROGEN 40 mg/dL (7-18); CALCIUM 8.6 mg/dL (8.5-10.1); CARBON DIOXIDE 18.8 mmol/L (21-32); CHLORIDE 108 mmol/L (98-107); CREATININE 3.85 mg/dL (0.55-1.02); LIPASE 175 Units/L (73-393); SODIUM 138 mmol/L (136-145); eGFR NON BLACK RACES 12 (>60)
[2020-08-03] MEDS ORDERED: HumuLIN R SUBCUT PRN (16:16)
[2020-08-03] MEDS: NS 1000 ML 1,000 ML IV SCH (17:47)
[2020-08-03 18:11] LABS: BILIRUBIN,URINE NEGATIVE (NEGATIVE); BLOOD/HEMOGLOBIN,URINE 4+ (NEGATIVE); GLUCOSE, URINE NEGATIVE (NEGATIVE); KETONES,URINE NEGATIVE (NEGATIVE); LEUKOCYTE ESTERASE ,URINE NEGATIVE (NEGATIVE); NITRITES,URINE NEGATIVE (NEGATIVE); PH,URINE 6.5 (5.0 - 8.0); PROTEIN,URINE 4+ (NEGATIVE); UROBILINOGEN,URINE NORMAL (NORMAL)
[2020-08-03 18:12] LABS: APPEARANCE,URINE CLEAR (CLEAR); COLOR,URINE YELLOW (YELLOW)
[2020-08-03 18:21] LABS: SQUAMOUS EPITHELIAL CELL,UR RARE /HPF (NEGATIVE)
[2020-08-03 18:22] LABS: BACTERIA,URINE 1+ /HPF (NEGATIVE)
[2020-08-03] MEDS ORDERED: PATIENT'S HOME MEDICATION (Alprazolam 0.5 mg tablet) PO PRN (18:54)
[2020-08-03] MEDS ORDERED: BENTYL CAP 10 MG PO PRN (18:54)
[2020-08-03] MEDS: ZOFRAN INJ 4 MG VIAL IVP PRN (18:59)
[2020-08-03] MEDS: ZETIA TAB 10 MG PO SCH (21:00)
[2020-08-03] MEDS ORDERED: MAGNESIUM OXIDE 400 MG PO SCH (21:00)
[2020-08-03] MEDS: NORVASC TAB 5 MG PO SCH (21:00)
[2020-08-03] MEDS ORDERED: MAGNESIUM PO SCH (21:00)
[2020-08-03] MEDS ORDERED: HYOSCYAMINE SULFATE 0.125 MG SL PRN (21:00)
[2020-08-03] MEDS: MAG-OX TAB PO SCH (21:00)
[2020-08-04] MEDS: SNACK - Diabetic Appropriate PO SCH ×2 (00:59→20:00)
[2020-08-04] MEDS: ZOFRAN INJ 4 MG VIAL IVP PRN ×2 (05:30→13:02)
[2020-08-04 06:25] LABS: BASOPHILS # (AUTO) 0.1 X10^3/uL (0.0-0.1); BASOPHILS % (AUTO) 1.3 % (0.2-1.0); EOSINOPHILS # (AUTO) 0.1 x10^3/uL (0.0-0.2); HEMATOCRIT 27.3 % (36.0-47.0); HEMOGLOBIN 9.3 g/dL (12.0-16.0); LYMPHOCYTES # (AUTO) 1.7 X10^3/uL (1.3-2.9); LYMPHOCYTES % (AUTO) 27.2 % (21.0-51.0); MEAN CORPUSCULAR HEMOGLOBIN 29.5 pg (27.0-34.0); MEAN CORPUSCULAR HGB CONC 34.2 g/dL (33.0-35.0); MEAN CORPUSCULAR VOLUME 86.4 fL (80.0-100.0); MEAN PLATELET VOLUME 8.5 fL (7.4-11.0); MONOCYTES # (AUTO) 0.4 x10^3/uL (0.3-0.8); MONOCYTES % (AUTO) 5.9 % (0.0-13.0); NEUTROPHILS % (AUTO) 63.6 % (42.0-75.0); PLATELET COUNT 213 X10^3/uL (150.0-450.0); RED BLOOD COUNT 3.17 X10^6/uL (3.5-5.4); RED CELL DISTRIBUTION WIDTH 14.3 % (11.6-16.5); WHITE BLOOD COUNT 6.3 X10^3/uL (3.6-10.0)
[2020-08-04 06:40] LABS: ALANINE AMINOTRANSFERASE 7 Units/L (12-78); ALBUMIN 2.2 g/dL (3.4-5.0); ALKALINE PHOSPHATASE 83 Units/L (46-116); ASPARTATE AMINO TRANSFERASE 21 Units/L (15-37); BLOOD UREA NITROGEN 35 mg/dL (7-18); CALCIUM 8.3 mg/dL (8.5-10.1); CARBON DIOXIDE 18.9 mmol/L (21-32); CHLORIDE 110 mmol/L (98-107); COR CA(FOR HYPOALB) 9.7 mg/dL (8.5-10.1); CREATININE 3.63 mg/dL (0.55-1.02); SODIUM 140 mmol/L (136-145); TOTAL PROTEIN 5.6 g/dL (6.4-8.2); eGFR NON BLACK RACES 13 (>60)
[2020-08-04] MEDS: NS 1000 ML 1,000 ML IV SCH ×4 (06:51→21:02)
[2020-08-04] MEDS: SYNTHROID 50 mcg TAB PO SCH (08:00)
[2020-08-04] MEDS: ARICEPT TAB 5 MG PO SCH (08:01)
[2020-08-04] MEDS: MAG-OX TAB PO SCH ×2 (08:01→20:53)
[2020-08-04] MEDS: TOPROL XL PO SCH (08:04)
[2020-08-04] MEDS ORDERED: NORVASC TAB 5 MG PO SCH (09:00)
[2020-08-04] MEDS ORDERED: PriLOSEC PO SCH (09:00)
[2020-08-04] MEDS: PROTONIX INJ 40 MG VIAL IVP SCH ×2 (10:08→20:58)
[2020-08-04] MEDS: PEPCID 20 MG IV PREMIX* 20 MG/50 ML BAG IV SCH (10:13)
--- NOTE | 2020-08-04 11:40 | DR.H&P ---
H&P - History & Physical for Day of: H&P Date: 08/03/20 - Chief Complaint Chief Complaint: NAUSEA AND VOMITING - History of Present Illness History of Present Illness: IS A 70 YEAR OLD PATIENT OF OURS. SHE PRESENTED TO THE ER WITH COMPLAINTS OF PERSISTENT NAUSEA AND VOMITING. SYMPTOMS STARTED ABOUT TWO DAYS AGO. SHE WAS SEEN AND EVALUATED IN THE ER ONE DAY PRIOR, BUT RETURNED AFTER SYMPTOMS PERSISTED. SHE REPORTS VOMITING AT LEAST 5-6 TIMES IN THE PAST 24 HOURS. SHE ADMITS TO DIFFUSE ABDOMINAL PAIN AND CRAMPING, BUT DENIES DIARRHEA. PAIN IS RATED A 4/10. HER PMH INCLUDES DIABETES, DYSLIPIDEMIA, HTN, CHRONIC KIDNEY DISEASE, APPENDECTOMY, CHOLECYSTECTOMY, AND HYSTERECTOMY. ON ARRIVAL TO THE ER, HER VITALS WERE 98.2-102-20-98%-210/95. LABS WERE OBTAINED. ABNORMAL LAB VALUES INCLUDE THE FOLLOWING: RBC 3.48, HGB 9.9, HCT 29.9, CHLORIDE 108, CARBON DIOXIDE 18.8, BUN 40, CREATININE 3.85, GLUCOSE 102, ALT 9, TOTAL PROTEIN 6.0, ALBUMIN 2.3. URINALYSIS REVEALED: WBC 0-2, RBC 10-20, BACTERIA 1+, OCCULT BLOOD 4+, URINE PROTEIN 4+. COVID-19 NEGATIVE. AN ABDOMEN/PELVIS CT WITHOUT CONTRAST WAS OBTAINED WHILE SHE WAS IN THE ER ON 08/02/20. IT REVEALED: The lung bases are clear. Heart size is normal. Liver, spleen, adrenal glands, and pancreas are unremarkable. There is a small pancreatic calcification unchanged from prior study. Surgical clips are present in the gallbladder fossa from a cholecystectomy. The kidneys have normal size and shape. No abnormal calcification is present. There is no hydronephrosis or significant perirenal edema. The ureters are not dilated. Urinary bladder is contracted. The bowel is not dilated. There is no wall thickening in the bowel or edema around the bowel. There are diverticula in the colon. But there is no wall thickening or pericolonic edema to suggest acute diverticulitis. No uterus identified. There is no cystic or solid pelvic mass. Degenerative changes are present in the spine. IN THE ER, SHE WAS GIVEN A NORMAL SALINE BOLUS AND ZOFRAN 4MG IV X 1 DOSE. SHE WAS ADMITTED TO THE ER FOR FURTHER EVALUATION AND TREATMENT OF ACUTE ON CHRONIC RENAL FAILURE, INTRACTABLE NAUSEA AND VOMITING, AND DEHYDRATION. SHE WAS STARTED ON NORMAL SALINE AT 80 ML/HR, PEPCID 20MG IV DAILY, PROTONIX 40MG IV BID, ZOFRAN 4MG IV Q6H PRN, HUMULIN R SLIDING SCALE. WE WILL REVIEW HER HOME MEDICATIONS AND RESUME APPROPRIATE. OTHERWISE, WE PLAN TO FOLLOW UP WITH AM LABS AND CONTINUE TO MONITOR. TIME SPENT ON CLINICAL ASSESSMENT, REVIEWING LABS AND IMAGING, DECISION MAKING, AND DOCUMENTATION GREATER THAN 75 MINUTES. - Past Medical History Past Medical History: Hypertension, Dyslipidemia, Diabetes Additional Medical History: fibromyalgia, rheumatoid arthritis - Past Surgical History Surgical History: Appendectomy, Hysterectomy Additional Surgical History: cataract removal - Family History Family Medical History: Diabetes Mellitus, Cancer, DC, Hypertension - Social History Does patient currently use any type of tobacco product: No Have you used tobacco products in the last 12 months: No Type of Tobacco Use: None Does any household member use tobacco: No Alcohol Use: None Drug Use: None - Medications Home Medications: cefoperazone [From Cefobid] Allergy (Verified 08/03/20 13:49) ciprofloxacin [From Cipro] Allergy (Verified 08/03/20 13:49) clindamycin Allergy (Verified 08/03/20 13:49) gentamicin Allergy (Verified 08/03/20 13:49) hydroxyzine [From Vistaril] Allergy (Verified 08/03/20 13:49) memantine [From Namenda] Allergy (Verified 08/03/20 13:49) Penicillins Allergy (Verified 08/03/20 13:49) CONTINUE taking the following medications cetirizine 10 mg PO ONCE 08/03/20 [History] tramadol 50 mg PO DAILY 08/03/20 [History] ezetimibe 10 mg PO QHS 08/04/20 [History] - Review of Systems Constitutional: Weakness Eyes: No Symptoms Reported ENT: No Symptoms Reported Respiratory: No Symptoms Reported Cardiovascular: No Symptoms Reported Gastrointestinal: Nausea, Vomiting, Abdominal Pain Genitourinary: No Symptoms Reported Musculoskeletal: No Symptoms Reported Skin: No Symptoms Reported Neurological: Weakness - Physical Exam Vital Signs: Temperature 99.1 F Pulse Rate [Left Radial] 86 Pulse Rate 102 Respiratory Rate 20 Blood Pressure [Left Arm] 191/87 Blood Pressure 210/95 O2 Sat by Pulse Oximetry 96 Oriented: Normal Eyes: Normal Ear: Normal Nose: Normal Throat: Normal Respiratory: Diminished Throughout Cardiovascular: Tachycardia : Normal Auscultation: Bowel Sounds: Normal Palpation: Normal Tenderness: Normal Skin: Normal Musculoskeletal: Normal Psychiatric: Normal Mood Description: Calm Affect: Normal Speech Pattern: Clear - Assessment/Plan (1) Acute on chronic kidney failure Qualifiers: Acute renal failure type: unspecified Chronic kidney disease stage: unspecified stage Qualified Code(s): N17.9 - Acute kidney failure, unspecified; N18.9 - Chronic kidney disease, unspecified Status: Acute Plan: ADMIT, NORMAL SALINE AT 80 ML/HR, PEPCID 20MG IV DAILY, PROTONIX 40MG IV BID, ZOFRAN 4MG IV Q6H PRN, HUMULIN R SLIDING SCALE. (2) Dehydration Status: Acute (3) Intractable nausea and vomiting Status: Acute - Allergies Allergies/Adverse Reactions: Allergies Allergy/AdvReac Type Severity Reaction Status Date / Time cefoperazone [From Cefobid] Allergy Verified 08/03/20 13:49 ciprofloxacin [From Cipro] Allergy Verified 08/03/20 13:49 clindamycin Allergy Verified 08/03/20 13:49 gentamicin Allergy Verified 08/03/20 13:49 hydroxyzine [From Vistaril] Allergy Verified 08/03/20 13:49 memantine [From Namenda] Allergy Verified 08/03/20 13:49 Penicillins Allergy Verified 08/03/20 13:49
[2020-08-04] MEDS: CATAPRES-TTS-2 TD SCH (18:24)
[2020-08-04] MEDS: LOTENSIN TAB 10 MG PO SCH (20:53)
[2020-08-04] MEDS: NORVASC TAB 5 MG PO SCH (20:54)
[2020-08-04] MEDS: ZETIA TAB 10 MG PO SCH (20:54)
[2020-08-05 06:07] LABS: BASOPHILS # (AUTO) 0.1 X10^3/uL (0.0-0.1); BASOPHILS % (AUTO) 1.4 % (0.2-1.0); EOSINOPHILS # (AUTO) 0.1 x10^3/uL (0.0-0.2); EOSINOPHILS % (AUTO) 1.6 % (0.9-2.9); HEMATOCRIT 31.4 % (36.0-47.0); HEMOGLOBIN 10.4 g/dL (12.0-16.0); LYMPHOCYTES # (AUTO) 2.3 X10^3/uL (1.3-2.9); LYMPHOCYTES % (AUTO) 28.5 % (21.0-51.0); MEAN CORPUSCULAR HEMOGLOBIN 28.8 pg (27.0-34.0); MEAN CORPUSCULAR VOLUME 87.1 fL (80.0-100.0); MEAN PLATELET VOLUME 8.4 fL (7.4-11.0); MONOCYTES # (AUTO) 0.4 x10^3/uL (0.3-0.8); NEUTROPHILS # (AUTO) 5.1 x10^3/uL (2.2-4.8); NEUTROPHILS % (AUTO) 63.5 % (42.0-75.0); PLATELET COUNT 260 X10^3/uL (150.0-450.0); RED CELL DISTRIBUTION WIDTH 14.2 % (11.6-16.5)
[2020-08-05 06:21] LABS: ALANINE AMINOTRANSFERASE 13 Units/L (12-78); ALBUMIN 2.4 g/dL (3.4-5.0); ALKALINE PHOSPHATASE 91 Units/L (46-116); ASPARTATE AMINO TRANSFERASE 22 Units/L (15-37); BLOOD UREA NITROGEN 34 mg/dL (7-18); CALCIUM 8.7 mg/dL (8.5-10.1); CARBON DIOXIDE 19.3 mmol/L (21-32); CHLORIDE 110 mmol/L (98-107); CREATININE 3.86 mg/dL (0.55-1.02); SODIUM 140 mmol/L (136-145); TOTAL PROTEIN 6.1 g/dL (6.4-8.2); eGFR NON BLACK RACES 12 (>60)
[2020-08-05] MEDS: SYNTHROID 50 mcg TAB PO SCH (08:58)
[2020-08-05] MEDS: ARICEPT TAB 5 MG PO SCH (08:58)
[2020-08-05] MEDS: MAG-OX TAB PO SCH ×2 (08:58→20:45)
[2020-08-05] MEDS: PEPCID 20 MG IV PREMIX* 20 MG/50 ML BAG IV SCH (08:59)
[2020-08-05] MEDS: TOPROL XL PO SCH (08:59)
[2020-08-05] MEDS: PROTONIX INJ 40 MG VIAL IVP SCH ×2 (08:59→20:44)
[2020-08-05] MEDS ORDERED: NS 1000 ML 1,000 ML IV ONE (10:22)
[2020-08-05] MEDS: LOVENOX INJ 30 MG SYR SC SCH (10:26)
[2020-08-05] MEDS: NS 1000 ML 1,000 ML IV SCH ×2 (10:29→19:05)
[2020-08-05 19:49] VITALS: BMI 25.9
[2020-08-05] MEDS: LOTENSIN TAB 10 MG PO SCH (20:44)
[2020-08-05] MEDS: NORVASC TAB 5 MG PO SCH (20:45)
[2020-08-05] MEDS: ZETIA TAB 10 MG PO SCH (20:45)
[2020-08-05] MEDS: MEGACE PO SCH (20:45)
[2020-08-05] MEDS: SNACK - Diabetic Appropriate PO SCH (21:04)
[2020-08-05] MEDS: ZOFRAN INJ 4 MG VIAL IVP PRN (22:11)
[2020-08-05] MEDS: CATAPRES-TTS-2 TD SCH (22:23)
[2020-08-06] MEDS: NS 1000 ML 1,000 ML IV SCH ×4 (01:48→23:57)
[2020-08-06 06:17] LABS: BASOPHILS # (AUTO) 0.1 X10^3/uL (0.0-0.1); BASOPHILS % (AUTO) 1.4 % (0.2-1.0); EOSINOPHILS # (AUTO) 0.2 x10^3/uL (0.0-0.2); EOSINOPHILS % (AUTO) 2.3 % (0.9-2.9); HEMATOCRIT 26.1 % (36.0-47.0); LYMPHOCYTES # (AUTO) 1.5 X10^3/uL (1.3-2.9); LYMPHOCYTES % (AUTO) 20.5 % (21.0-51.0); MEAN CORPUSCULAR HEMOGLOBIN 29.9 pg (27.0-34.0); MEAN CORPUSCULAR HGB CONC 34.6 g/dL (33.0-35.0); MEAN CORPUSCULAR VOLUME 86.3 fL (80.0-100.0); MEAN PLATELET VOLUME 8.8 fL (7.4-11.0); MONOCYTES # (AUTO) 0.4 x10^3/uL (0.3-0.8); NEUTROPHILS # (AUTO) 5.3 x10^3/uL (2.2-4.8); NEUTROPHILS % (AUTO) 70.8 % (42.0-75.0); PLATELET COUNT 200 X10^3/uL (150.0-450.0); RED BLOOD COUNT 3.02 X10^6/uL (3.5-5.4); RED CELL DISTRIBUTION WIDTH 14.1 % (11.6-16.5); WHITE BLOOD COUNT 7.4 X10^3/uL (3.6-10.0)
[2020-08-06 06:35] LABS: ALANINE AMINOTRANSFERASE 9 Units/L (12-78); ALKALINE PHOSPHATASE 76 Units/L (46-116); ASPARTATE AMINO TRANSFERASE 20 Units/L (15-37); BLOOD UREA NITROGEN 30 mg/dL (7-18); CALCIUM 7.8 mg/dL (8.5-10.1); CARBON DIOXIDE 17.8 mmol/L (21-32); CHLORIDE 114 mmol/L (98-107); COR CA(FOR HYPOALB) 9.4 mg/dL (8.5-10.1); CREATININE 3.59 mg/dL (0.55-1.02); SODIUM 143 mmol/L (136-145); TOTAL PROTEIN 5.2 g/dL (6.4-8.2); eGFR NON BLACK RACES 13 (>60)
[2020-08-06] MEDS: MEGACE PO SCH ×2 (08:30→20:57)
[2020-08-06] MEDS: PEPCID 20 MG IV PREMIX* 20 MG/50 ML BAG IV SCH (08:30)
[2020-08-06] MEDS: MAG-OX TAB PO SCH ×2 (08:31→20:55)
[2020-08-06] MEDS: XANAX PO PRN (08:31)
[2020-08-06] MEDS: PROTONIX INJ 40 MG VIAL IVP SCH ×2 (08:32→20:58)
[2020-08-06] MEDS: ARICEPT TAB 5 MG PO SCH (08:33)
[2020-08-06] MEDS: TOPROL XL PO SCH (08:33)
[2020-08-06] MEDS: SYNTHROID 50 mcg TAB PO SCH (08:33)
[2020-08-06] MEDS: LOVENOX INJ 30 MG SYR SC SCH (08:34)
[2020-08-06] MEDS: ALBUMIN HUMAN 25%- 100 ML 100 ML IV SCH (10:43)
[2020-08-06] MEDS: TOPAMAX PO SCH ×2 (10:46→20:57)
--- NOTE | 2020-08-06 14:20 | PCM.PROG ---
Progress Note - Progress Note for Day of Date of Exam: 08/05/20 - Subjective Subjective: WAS ADMITTED FOR ACUTE ON CHRONIC RENAL FAILURE, DEHYDRATION, AND INTRACTABLE NAUSEA AND VOMITING. TODAY, SHE IS ALERT, SITTING UP IN BED ON MORNING ROUNDS. SHE CONTINUE WITH COMPLAINTS OF NAUSEA, BUT DENIES VOMITING THROUGHOUT THE NIGHT. SHE ALSO CONTINUES WITH GENERALIZED WEAKNESS TODAY. SHE REPORTS A DECREASED APPETITE. SHE ONLY REPORTS SIGHT IMPROVEMENT IN SYMPTOMS SINCE ADMISSION. ON EXAMINATION TODAY, HEART IS REGULAR IN RATE AND RHYTHM. BILATERAL LUNGS ARE NOTED WITH DIMINISHED LUNG SOUNDS THROUGHOUT. ABDOMEN IS ROUND, SOFT, AND NOTED WITH NORMAL BOWEL SOUNDS IN ALL QUADANTS. HER VITALS THIS MORNING ARE: 98.2-76-18-97%-183/79. LABS WERE OBTAINED. ABNORMAL LAB VALUES INCLUDE THE FOLLOWING: HGB 10.4, HCT 31.4, CHLORIDE 110, CARBON DIOXIDE 19.3, BUN 34, CREATININE 3.86, TOTAL PROTEIN 6.1, ALBUMIN 2.4. SHE IS CURRENTLY RECEIVING NORMAL SALINE AT 80 ML/HR, PEPCID 20MG IV DAILY, PROTONIX 40MG IV BID, ZOFRAN 4MG IV Q6H PRN, HUMULIN R SLIDING SCALE. TODAY, WE WILL BOLUS 1 LITER OR NORMAL SALINE AND THEN INCREASE IV FLUIDS TO 150 ML/HR. WE WILL START [place] 40MG PO BID. OTHERWISE, WE WILL CONTINUE WITH CURRENT PLAN OF CARE TODAY. WE PLAN TO FOLLOW UP WITH AM LABS AND CONTINUE TO MONITOR. TIME SPENT ON CLINICAL ASSESSMENT, REVIEWING LABS AND IMAGING, DECISION MAKING, AND DOCUMENTATION GREATER THAN 75 MINUTES. - Past Medical Family Social History Past Med/Fam/Surg Hx: No changes since H&P Allergies: Allergies cefoperazone [From Cefobid] Allergy (Verified 08/03/20 13:49) ciprofloxacin [From Cipro] Allergy (Verified 08/03/20 13:49) clindamycin Allergy (Verified 08/03/20 13:49) gentamicin Allergy (Verified 08/03/20 13:49) hydroxyzine [From Vistaril] Allergy (Verified 08/03/20 13:49) memantine [From Namenda] Allergy (Verified 08/03/20 13:49) Penicillins Allergy (Verified 08/03/20 13:49) - Review of Systems ROS: No change since H&P - Vital Signs and I&O's Vital Signs: Temperature 98.6 F Pulse Rate [Left Radial] 57 Pulse Rate 102 Respiratory Rate 20 Blood Pressure [Left Arm] 182/81 Blood Pressure 210/95 O2 Sat by Pulse Oximetry 98 Intake and Output: Intake & Output 08/04/20 08/05/20 08/06/20 08/07/20 11:59 11:59 11:59 11:59 Intake Total 1319 / 1319 2382 / 2382 3852 / 3852 Balance 1319 / 1319 2382 / 2382 3852 / 3852 - Physical Exam Oriented: Normal Eyes: Normal Ear: Normal Nose: Normal Throat: Normal Respiratory: Generalized, Diminished Cardiovascular: Normal : Normal Auscultation: Bowel Sounds: Normal Palpation: Normal Tenderness: Normal Skin: Normal Musculoskeletal: Normal Psychiatric: Normal Mood Description: Calm Affect: Normal Speech Pattern: Clear, Appropriate - Laboratory and Diagnostics Result Diagrams: 08/06/20 05:30 08/06/20 05:30 Labs: Laboratory WBC 7.4 X10^3/uL (3.6-10.0) 08/06/20 05:30 RBC 3.02 X10^6/uL (3.5-5.4) L 08/06/20 05:30 Hgb 9.0 g/dL (12.0-16.0) L 08/06/20 05:30 Hct 26.1 % (36.0-47.0) L 08/06/20 05:30 MCV 86.3 fL (80.0-100.0) 08/06/20 05:30 MCH 29.9 pg (27.0-34.0) 08/06/20 05:30 MCHC 34.6 g/dL (33.0-35.0) 08/06/20 05:30 RDW 14.1 % (11.6-16.5) 08/06/20 05:30 Plt Count 200 X10^3/uL (150.0-450.0) 08/06/20 05:30 MPV 8.8 fL (7.4-11.0) 08/06/20 05:30 Neut % (Auto) 70.8 % (42.0-75.0) 08/06/20 05:30 Lymph % (Auto) 20.5 % (21.0-51.0) L 08/06/20 05:30 [place] % (Auto) 5.0 % (0.0-13.0) 08/06/20 05:30 Eos % (Auto) 2.3 % (0.9-2.9) 08/06/20 05:30 Baso % (Auto) 1.4 % (0.2-1.0) H 08/06/20 05:30 Neut # (Auto) 5.3 x10^3/uL (2.2-4.8) H 08/06/20 05:30 Lymph # (Auto) 1.5 X10^3/uL (1.3-2.9) 08/06/20 05:30 [place] # (Auto) 0.4 x10^3/uL (0.3-0.8) 08/06/20 05:30 Eos # (Auto) 0.2 x10^3/uL (0.0-0.2) 08/06/20 05:30 Baso # (Auto) 0.1 X10^3/uL (0.0-0.1) 08/06/20 05:30 Absolute Nucleated RBC 0.0 /100WBC 08/06/20 05:30 Sodium 143 mmol/L (136-145) 08/06/20 05:30 Corrected Sodium TNP 08/06/20 05:30 Potassium 3.9 mmol/L (3.5-5.1) 08/06/20 05:30 Chloride 114 mmol/L (98-107) H 08/06/20 05:30 Carbon Dioxide 17.8 mmol/L (21-32) L 08/06/20 05:30 BUN 30 mg/dL (7-18) H 08/06/20 05:30 Creatinine 3.59 mg/dL (0.55-1.02) H 08/06/20 05:30 Est GFR (MDRD) Af Amer 16 (>60) L 08/06/20 05:30 Est GFR (MDRD) Non-Af 13 (>60) L 08/06/20 05:30 Glucose 90 mg/dL (65-99) 08/06/20 05:30 POC Glucose (mg/dL) 89 mg/dL (65-99) 08/06/20 11:19 Calcium 7.8 mg/dL (8.5-10.1) L 08/06/20 05:30 Corrected Calcium 9.4 mg/dL (8.5-10.1) 08/06/20 05:30 Magnesium 1.7 mg/dL (1.7-2.9) 08/06/20 05:30 Total Bilirubin 0.50 mg/dL (0.2-1.0) 08/06/20 05:30 AST 20 Units/L (15-37) 08/06/20 05:30 ALT 9 Units/L (12-78) L 08/06/20 05:30 Alkaline Phosphatase 76 Units/L (46-116) 08/06/20 05:30 Total Protein 5.2 g/dL (6.4-8.2) L 08/06/20 05:30 Albumin 2.0 g/dL (3.4-5.0) L 08/06/20 05:30 Globulin 3.2 g/dL (2.5-4.5) 08/06/20 05:30 Albumin/Globulin Ratio 0.6 Ratio (1.1-2.1) L 08/06/20 05:30 Amylase 70 Units/L (25-115) 08/03/20 13:51 Lipase 175 Units/L (73-393) 08/03/20 13:51 Specimen Type Clean catch urine 08/03/20 17:40 Urine Color Yellow (YELLOW) 08/03/20 17:40 Urine Appearance Clear (CLEAR) 08/03/20 17:40 Urine pH 6.5 (5.0 - 8.0) 08/03/20 17:40 Ur Specific [place] 1.010 (1.000-1.030) 08/03/20 17:40 Urine Protein 4+ (NEGATIVE) 08/03/20 17:40 Urine Glucose (UA) Negative (NEGATIVE) 08/03/20 17:40 Urine Ketones Negative (NEGATIVE) 08/03/20 17:40 Urine Occult Blood 4+ (NEGATIVE) 08/03/20 17:40 Urine Nitrite Negative (NEGATIVE) 08/03/20 17:40 Urine Bilirubin Negative (NEGATIVE) 08/03/20 17:40 Urine Urobilinogen Normal (NORMAL) 08/03/20 17:40 Ur Leukocyte Esterase Negative (NEGATIVE) 08/03/20 17:40 Urine RBC 10-20 /HPF (0-3) A 08/03/20 17:40 Urine WBC 0-2 /HPF (0-5) 08/03/20 17:40 Ur Squamous Epith Cells Rare /HPF (NEGATIVE) 08/03/20 17:40 Urine Bacteria 1+ /HPF (NEGATIVE) 08/03/20 17:40 Ur Culture Indicated? No/not indicated 08/03/20 17:40 - Plan (1) Acute on chronic kidney failure Status: Acute Qualifiers: Acute renal failure type: unspecified Chronic kidney disease stage: unspecified stage Qualified Code(s): N17.9 - Acute kidney failure, unspecified; N18.9 - Chronic kidney disease, unspecified Plan: NORMAL SALINE 1 LITER BOLUS, NORMAL SALINE AT 150 ML/HR, PEPCID 20MG IV DAILY, PROTONIX 40MG IV BID, ZOFRAN 4MG IV Q6H PRN, HUMULIN R SLIDING SCALE. (2) Dehydration Status: Acute (3) Intractable nausea and vomiting Status: Acute
--- NOTE | 2020-08-06 14:25 | PCM.PROG ---
Progress Note - Progress Note for Day of Date of Exam: 08/06/20 - Subjective Subjective: WAS ADMITTED FOR ACUTE ON CHRONIC RENAL FAILURE, DEHYDRATION, AND INTRACTABLE NAUSEA AND VOMITING. TODAY, SHE IS ALERT, SITTING UP IN BED ON MORNING ROUNDS. SHE CONTINUE WITH COMPLAINTS OF NAUSEA, WEAKNESS, AND DECREASED APPETITE TODAY. SHE ONLY REPORTS SIGHT IMPROVEMENT IN SYMPTOMS SINCE YESTERDAY. ON EXAMINATION TODAY, HEART IS REGULAR IN RATE AND RHYTHM. BILATERAL LUNGS ARE NOTED WITH DIMINISHED LUNG SOUNDS THROUGHOUT. ABDOMEN IS ROUND, SOFT, AND NOTED WITH NORMAL BOWEL SOUNDS IN ALL QUADANTS. HER VITALS THIS MORNING ARE: 98.1-79-20-99%-184/86. LABS WERE OBTAINED. ABNORMAL LAB VALUES INCLUDE THE FOLLOWING: RBC 3.02, HGB 9.0, HCT 26.1, CHLORIDE 110, CARBON DIOXIDE 19.3, BUN 34, CREATININE 3.86, TOTAL PROTEIN 6.1, ALBUMIN 2.4. SHE IS CURRENTLY RECEIVING NORMAL SALINE AT 80 ML/HR, PEPCID 20MG IV DAILY, PROTONIX 40MG IV BID, MEGACE 40MG PO BID, ZOFRAN 4MG IV Q6H PRN, HUMULIN R SLIDING SCALE. HER HOME MEDICATIONS OF XANAX 0.5MG PO DAILY PRN, NORVASC 5MG PO HS, LOTENSIN 10MG HG, CATAPRES 0.2MG TD PATCH WEEKLY, BENTYL 10MG PO QID PRN, ARICEPT 5MG PO DAILY, ZETIA 10MG PH HS, SYNTHROID 50MG PO DAILY, MAG OX 400MG PO BID, TOPROL 25MG PO DAILY, WERE RESUMED. TODAY ,WE WILL ADD ALBUMIN 25% IV DAILY AND TOPAMAX 25MG PO BID. OTHERWISE, WE WILL CONTINUE WITH CURRENT PLAN OF CARE. WE PLAN TO FOLLOW UP WITH AM LABS AND CONTINUE TO MONITOR. TIME SPENT ON CLINICAL ASSESSMENT, REVIEWING LABS AND IMAGING, DECISION MAKING, AND DOCUMENTATION GREATER THAN 75 MINUTES. - Past Medical Family Social History Past Med/Fam/Surg Hx: No changes since H&P Allergies: Allergies cefoperazone [From Cefobid] Allergy (Verified 08/03/20 13:49) ciprofloxacin [From Cipro] Allergy (Verified 08/03/20 13:49) clindamycin Allergy (Verified 08/03/20 13:49) gentamicin Allergy (Verified 08/03/20 13:49) hydroxyzine [From Vistaril] Allergy (Verified 08/03/20 13:49) memantine [From Namenda] Allergy (Verified 08/03/20 13:49) Penicillins Allergy (Verified 08/03/20 13:49) - Review of Systems ROS: No change since H&P - Vital Signs and I&O's Vital Signs: Temperature 98.6 F Pulse Rate [Left Radial] 57 Pulse Rate 102 Respiratory Rate 20 Blood Pressure [Left Arm] 182/81 Blood Pressure 210/95 O2 Sat by Pulse Oximetry 98 Intake and Output: Intake & Output 08/04/20 08/05/20 08/06/20 08/07/20 11:59 11:59 11:59 11:59 Intake Total 1319 / 1319 2382 / 2382 3852 / 3852 Balance 1319 / 1319 2382 / 2382 3852 / 3852 - Physical Exam Oriented: Normal Eyes: Normal Ear: Normal Nose: Normal Throat: Normal Respiratory: Generalized, Diminished Cardiovascular: Normal : Normal Auscultation: Bowel Sounds: Normal Palpation: Normal Tenderness: Normal Skin: Normal Musculoskeletal: Normal Psychiatric: Normal Mood Description: Calm Affect: Normal Speech Pattern: Clear, Appropriate - Laboratory and Diagnostics Result Diagrams: 08/06/20 05:30 08/06/20 05:30 Labs: Laboratory WBC 7.4 X10^3/uL (3.6-10.0) 08/06/20 05:30 RBC 3.02 X10^6/uL (3.5-5.4) L 08/06/20 05:30 Hgb 9.0 g/dL (12.0-16.0) L 08/06/20 05:30 Hct 26.1 % (36.0-47.0) L 08/06/20 05:30 MCV 86.3 fL (80.0-100.0) 08/06/20 05:30 MCH 29.9 pg (27.0-34.0) 08/06/20 05:30 MCHC 34.6 g/dL (33.0-35.0) 08/06/20 05:30 RDW 14.1 % (11.6-16.5) 08/06/20 05:30 Plt Count 200 X10^3/uL (150.0-450.0) 08/06/20 05:30 MPV 8.8 fL (7.4-11.0) 08/06/20 05:30 Neut % (Auto) 70.8 % (42.0-75.0) 08/06/20 05:30 Lymph % (Auto) 20.5 % (21.0-51.0) L 08/06/20 05:30 [place] % (Auto) 5.0 % (0.0-13.0) 08/06/20 05:30 Eos % (Auto) 2.3 % (0.9-2.9) 08/06/20 05:30 Baso % (Auto) 1.4 % (0.2-1.0) H 08/06/20 05:30 Neut # (Auto) 5.3 x10^3/uL (2.2-4.8) H 08/06/20 05:30 Lymph # (Auto) 1.5 X10^3/uL (1.3-2.9) 08/06/20 05:30 [place] # (Auto) 0.4 x10^3/uL (0.3-0.8) 08/06/20 05:30 Eos # (Auto) 0.2 x10^3/uL (0.0-0.2) 08/06/20 05:30 Baso # (Auto) 0.1 X10^3/uL (0.0-0.1) 08/06/20 05:30 Absolute Nucleated RBC 0.0 /100WBC 08/06/20 05:30 Sodium 143 mmol/L (136-145) 08/06/20 05:30 Corrected Sodium TNP 08/06/20 05:30 Potassium 3.9 mmol/L (3.5-5.1) 08/06/20 05:30 Chloride 114 mmol/L (98-107) H 08/06/20 05:30 Carbon Dioxide 17.8 mmol/L (21-32) L 08/06/20 05:30 BUN 30 mg/dL (7-18) H 08/06/20 05:30 Creatinine 3.59 mg/dL (0.55-1.02) H 08/06/20 05:30 Est GFR (MDRD) Af Amer 16 (>60) L 08/06/20 05:30 Est GFR (MDRD) Non-Af 13 (>60) L 08/06/20 05:30 Glucose 90 mg/dL (65-99) 08/06/20 05:30 POC Glucose (mg/dL) 89 mg/dL (65-99) 08/06/20 11:19 Calcium 7.8 mg/dL (8.5-10.1) L 08/06/20 05:30 Corrected Calcium 9.4 mg/dL (8.5-10.1) 08/06/20 05:30 Magnesium 1.7 mg/dL (1.7-2.9) 08/06/20 05:30 Total Bilirubin 0.50 mg/dL (0.2-1.0) 08/06/20 05:30 AST 20 Units/L (15-37) 08/06/20 05:30 ALT 9 Units/L (12-78) L 08/06/20 05:30 Alkaline Phosphatase 76 Units/L (46-116) 08/06/20 05:30 Total Protein 5.2 g/dL (6.4-8.2) L 08/06/20 05:30 Albumin 2.0 g/dL (3.4-5.0) L 08/06/20 05:30 Globulin 3.2 g/dL (2.5-4.5) 08/06/20 05:30 Albumin/Globulin Ratio 0.6 Ratio (1.1-2.1) L 08/06/20 05:30 Amylase 70 Units/L (25-115) 08/03/20 13:51 Lipase 175 Units/L (73-393) 08/03/20 13:51 Specimen Type Clean catch urine 08/03/20 17:40 Urine Color Yellow (YELLOW) 08/03/20 17:40 Urine Appearance Clear (CLEAR) 08/03/20 17:40 Urine pH 6.5 (5.0 - 8.0) 08/03/20 17:40 Ur Specific [place] 1.010 (1.000-1.030) 08/03/20 17:40 Urine Protein 4+ (NEGATIVE) 08/03/20 17:40 Urine Glucose (UA) Negative (NEGATIVE) 08/03/20 17:40 Urine Ketones Negative (NEGATIVE) 08/03/20 17:40 Urine Occult Blood 4+ (NEGATIVE) 08/03/20 17:40 Urine Nitrite Negative (NEGATIVE) 08/03/20 17:40 Urine Bilirubin Negative (NEGATIVE) 08/03/20 17:40 Urine Urobilinogen Normal (NORMAL) 08/03/20 17:40 Ur Leukocyte Esterase Negative (NEGATIVE) 08/03/20 17:40 Urine RBC 10-20 /HPF (0-3) A 08/03/20 17:40 Urine WBC 0-2 /HPF (0-5) 08/03/20 17:40 Ur Squamous Epith Cells Rare /HPF (NEGATIVE) 08/03/20 17:40 Urine Bacteria 1+ /HPF (NEGATIVE) 08/03/20 17:40 Ur Culture Indicated? No/not indicated 08/03/20 17:40 - Plan (1) Acute on chronic kidney failure Status: Acute Qualifiers: Acute renal failure type: unspecified Chronic kidney disease stage: unspecified stage Qualified Code(s): N17.9 - Acute kidney failure, unspecified; N18.9 - Chronic kidney disease, unspecified Plan: NORMAL SALINE AT 150 ML/HR, PEPCID 20MG IV DAILY, PROTONIX 40MG IV BID, ZOFRAN 4MG IV Q6H PRN, HUMULIN R SLIDING SCALE, MEGACE 40MG PO BID, TOPAMAX 25MG PO BID, ALBUMIN 25% IV DAILY, RESUME HOME MEDS (2) Dehydration Status: Acute (3) Intractable nausea and vomiting Status: Acute
[2020-08-06] MEDS ORDERED: K-RIDER 10 MEQ/NS 100 ML 10 MEQ/100 ML BAG IV PRN (19:47)
[2020-08-06] MEDS ORDERED: POTASSIUM CHL 60 MEQ/NS 0.45% 500 ML IV PRN (19:47)
[2020-08-06] MEDS ORDERED: POTASSIUM CHLORIDE LIQ 20 MEQ UDC PO PRN (19:47)
[2020-08-06] MEDS ORDERED: KLOR-CON PO PRN (19:47)
[2020-08-06] MEDS ORDERED: K-DUR TAB 20 MEQ PO PRN (19:47)
[2020-08-06] MEDS ORDERED: MICRO K EXTEN CAP 10 MEQ PO PRN (19:47)
[2020-08-06] MEDS ORDERED: POTASSIUM CHL 40 MEQ/NS 0.45% 500 ML IV PRN (19:47)
[2020-08-06] MEDS: LOTENSIN TAB 10 MG PO SCH (20:55)
[2020-08-06] MEDS: ZETIA TAB 10 MG PO SCH (20:57)
[2020-08-06] MEDS: NORVASC TAB 5 MG PO SCH (20:57)
[2020-08-06] MEDS: ZOFRAN INJ 4 MG VIAL IVP PRN (20:59)
[2020-08-06] MEDS: MAGNESIUM SULFATE 1 GRAM/100 mL PREMIX 1 GM/100 ML BAG IV PRN ×2 (21:01→22:10)
[2020-08-06] MEDS: SNACK - Diabetic Appropriate PO SCH (21:25)
[2020-08-07] MEDS: NS 1000 ML 1,000 ML IV SCH ×4 (01:38→21:49)
[2020-08-07 06:30] LABS: BASOPHILS # (AUTO) 0.1 X10^3/uL (0.0-0.1); BASOPHILS % (AUTO) 1.2 % (0.2-1.0); EOSINOPHILS # (AUTO) 0.2 x10^3/uL (0.0-0.2); EOSINOPHILS % (AUTO) 2.7 % (0.9-2.9); HEMATOCRIT 25.8 % (36.0-47.0); HEMOGLOBIN 8.6 g/dL (12.0-16.0); LYMPHOCYTES # (AUTO) 1.9 X10^3/uL (1.3-2.9); MEAN CORPUSCULAR HEMOGLOBIN 28.9 pg (27.0-34.0); MEAN CORPUSCULAR HGB CONC 33.4 g/dL (33.0-35.0); MEAN CORPUSCULAR VOLUME 86.6 fL (80.0-100.0); MEAN PLATELET VOLUME 8.9 fL (7.4-11.0); MONOCYTES # (AUTO) 0.5 x10^3/uL (0.3-0.8); MONOCYTES % (AUTO) 5.5 % (0.0-13.0); NEUTROPHILS # (AUTO) 5.9 x10^3/uL (2.2-4.8); NEUTROPHILS % (AUTO) 68.6 % (42.0-75.0); PLATELET COUNT 200 X10^3/uL (150.0-450.0); RED BLOOD COUNT 2.97 X10^6/uL (3.5-5.4); RED CELL DISTRIBUTION WIDTH 14.3 % (11.6-16.5); WHITE BLOOD COUNT 8.5 X10^3/uL (3.6-10.0)
[2020-08-07 06:38] LABS: ALANINE AMINOTRANSFERASE 6 Units/L (12-78); ALBUMIN 2.2 g/dL (3.4-5.0); ALKALINE PHOSPHATASE 68 Units/L (46-116); ASPARTATE AMINO TRANSFERASE 17 Units/L (15-37); BLOOD UREA NITROGEN 33 mg/dL (7-18); CALCIUM 7.8 mg/dL (8.5-10.1); COR CA(FOR HYPOALB) 9.2 mg/dL (8.5-10.1); MAGNESIUM 2.1 mg/dL (1.7-2.9); SODIUM 143 mmol/L (136-145); TOTAL PROTEIN 5.1 g/dL (6.4-8.2); eGFR NON BLACK RACES 12 (>60)
[2020-08-07 06:48] LABS: CHLORIDE 114 mmol/L (98-107)
[2020-08-07] MEDS: PEPCID 20 MG IV PREMIX* 20 MG/50 ML BAG IV SCH (08:59)
[2020-08-07] MEDS: ALBUMIN HUMAN 25%- 100 ML 100 ML IV SCH (08:59)
[2020-08-07] MEDS: MAG-OX TAB PO SCH ×2 (09:00→21:48)
[2020-08-07] MEDS: MEGACE PO SCH ×2 (09:00→21:48)
[2020-08-07] MEDS: ARICEPT TAB 5 MG PO SCH (09:00)
[2020-08-07] MEDS: PROTONIX INJ 40 MG VIAL IVP SCH ×2 (09:01→21:48)
[2020-08-07] MEDS: TOPROL XL PO SCH (09:01)
[2020-08-07] MEDS: LOVENOX INJ 30 MG SYR SC SCH (09:01)
[2020-08-07] MEDS: SYNTHROID 50 mcg TAB PO SCH (09:01)
[2020-08-07] MEDS: TOPAMAX PO SCH ×2 (09:01→21:48)
--- NOTE | 2020-08-07 12:12 | PCM.PROG ---
Progress Note Progress Note for Day of Date of Exam: 08/07/20 Subjective Subjective: PT IS A 70 YEAR OLD FEMALE ADMITTED FOR ACUTE ON CHRONIC RENAL FAILURE, DEHYDRATION, AND INTRACTABLE NAUSEA AND VOMITING. THIS MORNING PATIENT IS LAYING IN BED COMFORTABLY. SHE STILL HAS SOME NAUSEA, WEAKNESS, WITH SOME IMPROVEMENT IN APPETITE. ON EXAMINATION TODAY, HEART IS REGULAR IN RATE AND RHYTHM. BILATERAL LUNGS ARE NOTED WITH DIMINISHED LUNG SOUNDS THROUGHOUT. ABDOMEN IS ROUND, SOFT, AND NOTED WITH NORMAL BOWEL SOUNDS IN ALL QUADANTS. SHE DOES HAVE SOME MILD TENDERNESS IN HER LEFT WRIST, WILL GET XR TO EVALUATE. LABS/IMAGING: WBC 8.5, HGB 8.6, PLT 200, NA 143, K 3.7, CR 3.80, GLUCOSE 87, AST 17, ALT 6, ALKP 68. TREATMENT COURSE INCLUDES: NORMAL SALINE AT 80 ML/HR, PEPCID 20MG IV DAILY, PROTONIX 40MG IV BID, MEGACE 40MG PO BID, ZOFRAN 4MG IV Q6H PRN, HUMULIN R SLIDING SCALE. HER HOME MEDICATIONS OF XANAX 0.5MG PO DAILY PRN, NORVASC 5MG PO HS, LOTENSIN 10MG HG, CATAPRES 0.2MG TD PATCH WEEKLY, BENTYL 10MG PO QID PRN, ARICEPT 5MG PO DAILY, ZETIA 10MG PH HS, SYNTHROID 50MG PO DAILY, MAG OX 400MG PO BID, TOPROL 25MG PO DAILY, ALBUMIN 25% IV DAILY, AND TOPAMAX 25MG PO BID. NO SIGNIFICANT IMPROVEMENT IN RENAL FUNCTION, CONTINUE IV HYDRATION AND CURRENT PLAN OF CARE. WILL CONTINUE TO MONITOR AND FOLLOW UP LABS/IMAGING IN THE MORNING. Past Medical Family Social History Past Med/Fam/Surg Hx: No changes since H&P Allergies: Allergies cefoperazone [From Cefobid] Allergy (Verified 08/03/20 13:49) ciprofloxacin [From Cipro] Allergy (Verified 08/03/20 13:49) clindamycin Allergy (Verified 08/03/20 13:49) gentamicin Allergy (Verified 08/03/20 13:49) hydroxyzine [From Vistaril] Allergy (Verified 08/03/20 13:49) memantine [From Namenda] Allergy (Verified 08/03/20 13:49) Penicillins Allergy (Verified 08/03/20 13:49) Review of Systems ROS: No change since H&P Vital Signs and I&O's Vital Signs: Temperature 98.4 F Pulse Rate [Left Radial] 78 Pulse Rate 102 Respiratory Rate 20 Blood Pressure [Left Arm] 195/91 Blood Pressure 210/95 O2 Sat by Pulse Oximetry 96 Intake and Output: Intake & Output 08/04/20 08/05/20 08/06/20 08/07/20 23:59 23:59 23:59 23:59 Intake Total 2214 / 5 3446 / 3446 3162 / 3162 1088 / 1088 Balance 2214 / 2214 3446 / 3446 3162 / 3162 1088 / 1088 Physical Exam Oriented: Normal Eyes: Normal Ear: Normal Nose: Normal Throat: Normal Respiratory: Generalized and Diminished Cardiovascular: Normal : Normal Auscultation: Bowel Sounds: Normal Tenderness: Normal Skin: Normal Musculoskeletal: Normal Psychiatric: Normal Mood Description: Calm Affect: Normal Speech Pattern: Clear and Appropriate Laboratory and Diagnostics Result Diagrams: 08/07/20 05:46 08/07/20 05:46 Labs: Laboratory WBC 8.5 X10^3/uL (3.6-10.0) 08/07/20 05:46 RBC 2.97 X10^6/uL (3.5-5.4) L 08/07/20 05:46 Hgb 8.6 g/dL (12.0-16.0) L 08/07/20 05:46 Hct 25.8 % (36.0-47.0) L 08/07/20 05:46 MCV 86.6 fL (80.0-100.0) 08/07/20 05:46 MCH 28.9 pg (27.0-34.0) 08/07/20 05:46 MCHC 33.4 g/dL (33.0-35.0) 08/07/20 05:46 RDW 14.3 % (11.6-16.5) 08/07/20 05:46 Plt Count 200 X10^3/uL (150.0-450.0) 08/07/20 05:46 MPV 8.9 fL (7.4-11.0) 08/07/20 05:46 Neut % (Auto) 68.6 % (42.0-75.0) 08/07/20 05:46 Lymph % (Auto) 22.0 % (21.0-51.0) 08/07/20 05:46 Ray % (Auto) 5.5 % (0.0-13.0) 08/07/20 05:46 Eos % (Auto) 2.7 % (0.9-2.9) 08/07/20 05:46 Baso % (Auto) 1.2 % (0.2-1.0) H 08/07/20 05:46 Neut # (Auto) 5.9 x10^3/uL (2.2-4.8) H 08/07/20 05:46 Lymph # (Auto) 1.9 X10^3/uL (1.3-2.9) 08/07/20 05:46 Ray # (Auto) 0.5 x10^3/uL (0.3-0.8) 08/07/20 05:46 Eos # (Auto) 0.2 x10^3/uL (0.0-0.2) 08/07/20 05:46 Baso # (Auto) 0.1 X10^3/uL (0.0-0.1) 08/07/20 05:46 Absolute Nucleated RBC 0.0 /100WBC 08/07/20 05:46 Sodium 143 mmol/L (136-145) 08/07/20 05:46 Corrected Sodium TNP 08/07/20 05:46 Potassium 3.7 mmol/L (3.5-5.1) 08/07/20 05:46 Chloride 114 mmol/L (98-107) H 08/07/20 05:46 Carbon Dioxide 17.0 mmol/L (21-32) L 08/07/20 05:46 BUN 33 mg/dL (7-18) H 08/07/20 05:46 Creatinine 3.80 mg/dL (0.55-1.02) H 08/07/20 05:46 Est GFR (MDRD) Af Amer 15 (>60) L 08/07/20 05:46 Est GFR (MDRD) Non-Af 12 (>60) L 08/07/20 05:46 Glucose 87 mg/dL (65-99) 08/07/20 05:46 POC Glucose (mg/dL) 83 mg/dL (65-99) 08/07/20 11:11 Calcium 7.8 mg/dL (8.5-10.1) L 08/07/20 05:46 Corrected Calcium 9.2 mg/dL (8.5-10.1) 08/07/20 05:46 Magnesium 2.1 mg/dL (1.7-2.9) 08/07/20 05:46 Total Bilirubin 0.50 mg/dL (0.2-1.0) 08/07/20 05:46 AST 17 Units/L (15-37) 08/07/20 05:46 ALT 6 Units/L (12-78) L 08/07/20 05:46 Alkaline Phosphatase 68 Units/L (46-116) 08/07/20 05:46 Total Protein 5.1 g/dL (6.4-8.2) L 08/07/20 05:46 Albumin 2.2 g/dL (3.4-5.0) L 08/07/20 05:46 Globulin 2.9 g/dL (2.5-4.5) 08/07/20 05:46 Albumin/Globulin Ratio 0.8 Ratio (1.1-2.1) L 08/07/20 05:46 Amylase 70 Units/L (25-115) 08/03/20 13:51 Lipase 175 Units/L (73-393) 08/03/20 13:51 Specimen Type Clean catch urine 08/03/20 17:40 Urine Color Yellow (YELLOW) 08/03/20 17:40 Urine Appearance Clear (CLEAR) 08/03/20 17:40 Urine pH 6.5 (5.0 - 8.0) 08/03/20 17:40 Ur Specific [place] 1.010 (1.000-1.030) 08/03/20 17:40 Urine Protein 4+ (NEGATIVE) 08/03/20 17:40 Urine Glucose (UA) Negative (NEGATIVE) 08/03/20 17:40 Urine Ketones Negative (NEGATIVE) 08/03/20 17:40 Urine Occult Blood 4+ (NEGATIVE) 08/03/20 17:40 Urine Nitrite Negative (NEGATIVE) 08/03/20 17:40 Urine Bilirubin Negative (NEGATIVE) 08/03/20 17:40 Urine Urobilinogen Normal (NORMAL) 08/03/20 17:40 Ur Leukocyte Esterase Negative (NEGATIVE) 02/16/21 17:40 Urine RBC 10-20 /HPF (0-3) A 08/03/20 17:40 Urine WBC 0-2 /HPF (0-5) 08/03/20 17:40 Ur Squamous Epith Cells Rare /HPF (NEGATIVE) 08/03/20 17:40 Urine Bacteria 1+ /HPF (NEGATIVE) 08/03/20 17:40 Ur Culture Indicated? No/not indicated 08/03/20 17:40 Plan (1) Acute on chronic kidney failure: Status: Acute Qualifiers: Acute renal failure type: unspecified Chronic kidney disease stage: unspecified stage Qualified Code(s): N17.9 - Acute kidney failure, unspecified; N18.9 - Chronic kidney disease, unspecified Plan: NORMAL SALINE AT 150 ML/HR, PEPCID 20MG IV DAILY, PROTONIX 40MG IV BID, ZOFRAN 4MG IV Q6H PRN, HUMULIN R SLIDING SCALE, MEGACE 40MG PO BID, TOPAMAX 25MG PO BID, ALBUMIN 25% IV DAILY, RESUME HOME MEDS (2) Dehydration: Status: Acute (3) Intractable nausea and vomiting: Status: Acute
--- NOTE | 2020-08-07 14:20 | RAD ---
HISTORYLeft wrist painSTUDYLeft wrist three viewsCOMPARISONNoneFINDINGSThere is no evidence for fracture or dislocation, or chondrocalcinosis. Joint spaces are maintained. Moderate osteopenia is present.IMPRESSIONNo acute or significant findings. Osteopenia is age-appropriate.Electronically signed by: CHRISTIAN AHN (Aug 07, 2020 14:17:48)
[2020-08-07] MEDS: LOTENSIN TAB 10 MG PO SCH (21:47)
[2020-08-07] MEDS: SNACK - Diabetic Appropriate PO SCH (21:48)
[2020-08-07] MEDS: NORVASC TAB 5 MG PO SCH (21:48)
[2020-08-07] MEDS: ZETIA TAB 10 MG PO SCH (21:49)
[2020-08-08] MEDS: NS 1000 ML 1,000 ML IV SCH ×2 (04:18→13:02)
[2020-08-08 07:14] LABS: BASOPHILS # (AUTO) 0.1 X10^3/uL (0.0-0.1); BASOPHILS % (AUTO) 1.2 % (0.2-1.0); EOSINOPHILS # (AUTO) 0.2 x10^3/uL (0.0-0.2); EOSINOPHILS % (AUTO) 1.8 % (0.9-2.9); HEMATOCRIT 26.8 % (36.0-47.0); HEMOGLOBIN 8.9 g/dL (12.0-16.0); LYMPHOCYTES # (AUTO) 1.7 X10^3/uL (1.3-2.9); LYMPHOCYTES % (AUTO) 18.9 % (21.0-51.0); MEAN CORPUSCULAR HEMOGLOBIN 29.1 pg (27.0-34.0); MEAN CORPUSCULAR HGB CONC 33.4 g/dL (33.0-35.0); MEAN CORPUSCULAR VOLUME 87.1 fL (80.0-100.0); MEAN PLATELET VOLUME 8.6 fL (7.4-11.0); MONOCYTES # (AUTO) 0.6 x10^3/uL (0.3-0.8); MONOCYTES % (AUTO) 6.2 % (0.0-13.0); NEUTROPHILS # (AUTO) 6.6 x10^3/uL (2.2-4.8); NEUTROPHILS % (AUTO) 71.9 % (42.0-75.0); PLATELET COUNT 195 X10^3/uL (150.0-450.0); RED BLOOD COUNT 3.07 X10^6/uL (3.5-5.4); RED CELL DISTRIBUTION WIDTH 14.8 % (11.6-16.5); WHITE BLOOD COUNT 9.1 X10^3/uL (3.6-10.0)
[2020-08-08 07:22] LABS: ALANINE AMINOTRANSFERASE 6 Units/L (12-78); ALBUMIN 2.6 g/dL (3.4-5.0); ALKALINE PHOSPHATASE 70 Units/L (46-116); ASPARTATE AMINO TRANSFERASE 21 Units/L (15-37); BLOOD UREA NITROGEN 35 mg/dL (7-18); CALCIUM 8.3 mg/dL (8.5-10.1); CARBON DIOXIDE 17.8 mmol/L (21-32); CHLORIDE 113 mmol/L (98-107); COR CA(FOR HYPOALB) 9.4 mg/dL (8.5-10.1); SODIUM 142 mmol/L (136-145); TOTAL PROTEIN 5.6 g/dL (6.4-8.2); eGFR NON BLACK RACES 11 (>60)
[2020-08-08] MEDS: ALBUMIN HUMAN 25%- 100 ML 100 ML IV SCH (09:21)
[2020-08-08] MEDS: ARICEPT TAB 5 MG PO SCH (09:21)
[2020-08-08] MEDS: MAG-OX TAB PO SCH ×2 (09:22→21:30)
[2020-08-08] MEDS: MEGACE PO SCH ×2 (09:22→21:30)
[2020-08-08] MEDS: TOPROL XL PO SCH (09:23)
[2020-08-08] MEDS: PROTONIX INJ 40 MG VIAL IVP SCH ×2 (09:23→21:31)
[2020-08-08] MEDS: TOPAMAX PO SCH ×2 (09:23→21:32)
[2020-08-08] MEDS: PEPCID 20 MG IV PREMIX* 20 MG/50 ML BAG IV SCH (09:23)
[2020-08-08] MEDS: LOVENOX INJ 30 MG SYR SC SCH (09:24)
[2020-08-08] MEDS: SYNTHROID 50 mcg TAB PO SCH (09:24)
--- NOTE | 2020-08-08 11:49 | PCM.PROG ---
Progress Note Progress Note for Day of Date of Exam: 08/08/20 Subjective Subjective: PT IS A 70 YEAR OLD FEMALE ADMITTED FOR ACUTE ON CHRONIC RENAL FAILURE, DEHYDRATION, AND INTRACTABLE NAUSEA AND VOMITING. THIS MORNING PATIENT IS SITTING ON THE SIDE OF THE BED. NO ACUTE EVENTS OVERNIGHT. ON EXAMINATION TODAY, HEART IS REGULAR IN RATE AND RHYTHM. BILATERAL LUNGS ARE NOTED WITH DIMINISHED LUNG SOUNDS THROUGHOUT. ABDOMEN IS ROUND, SOFT, AND NOTED WITH NORMAL BOWEL SOUNDS IN ALL QUADANTS. TENDERNESS IN HER LEFT WRIST WAS EVALUATED, XR NEGATIVE. LABS/IMAGING: WBC 9.1, HGB 8.9, PLT 195, NA 142, K 3.6, CR 4.2, GLUCOSE 85, TREATMENT COURSE INCLUDES: NORMAL SALINE AT 80 ML/HR, PEPCID 20MG IV DAILY, PROTONIX 40MG IV BID, MEGACE 40MG PO BID, ZOFRAN 4MG IV Q6H PRN, HUMULIN R SLIDING SCALE. HER HOME MEDICATIONS OF XANAX 0.5MG PO DAILY PRN, NORVASC 5MG PO HS, LOTENSIN 10MG HG, CATAPRES 0.2MG TD PATCH WEEKLY, BENTYL 10MG PO QID PRN, ARICEPT 5MG PO DAILY, ZETIA 10MG PH HS, SYNTHROID 50MG PO DAILY, MAG OX 400MG PO BID, TOPROL 25MG PO DAILY, ALBUMIN 25% IV DAILY, AND TOPAMAX 25MG PO BID. PT WITH WORSENING RENAL FUNCTION, REVIEWED MEDICATIONS, HOLDING NEPHROTOXIC AGENTS INCLUDING BENAZEPRIL. PT BLOOD PRESSURE ELEVATED, WILL INCREASE NORVASC TO 10MG AND ADD HYDRALAZINE 25MG DAILY. INCREASE IVF NS TO 125ML/H. WILL CONTINUE TO MONITOR AND FOLLOW UP LABS/IMAGING IN THE MORNING. Past Medical Family Social History Past Med/Fam/Surg Hx: No changes since H&P Allergies: Allergies cefoperazone [From Cefobid] Allergy (Verified 08/03/20 13:49) ciprofloxacin [From Cipro] Allergy (Verified 08/03/20 13:49) clindamycin Allergy (Verified 08/03/20 13:49) gentamicin Allergy (Verified 08/03/20 13:49) hydroxyzine [From Vistaril] Allergy (Verified 08/03/20 13:49) memantine [From Namenda] Allergy (Verified 08/03/20 13:49) Penicillins Allergy (Verified 08/03/20 13:49) Review of Systems ROS: No change since H&P Vital Signs and I&O's Vital Signs: Temperature 98.9 F Pulse Rate [Left Radial] 90 Pulse Rate 102 Respiratory Rate 20 Blood Pressure [Left Arm] 172/80 Blood Pressure 210/95 O2 Sat by Pulse Oximetry 95 Intake and Output: Intake & Output 08/05/20 08/06/20 08/07/20 08/08/20 23:59 23:59 23:59 23:59 Intake Total 3446 / 3446 3162 / 3162 3883 / 3883 476 / 476 Output Total 900 / 900 650 / 650 Balance 3446 / 3446 3162 / 3162 2983 / 2983 -174 / -174 Physical Exam Oriented: Normal Eyes: Normal Ear: Normal Nose: Normal Throat: Normal Respiratory: Generalized and Diminished Cardiovascular: Normal : Normal Auscultation: Bowel Sounds: Normal Tenderness: Normal Skin: Normal Musculoskeletal: Normal Psychiatric: Normal Mood Description: Calm Affect: Normal Speech Pattern: Clear and Appropriate Laboratory and Diagnostics Result Diagrams: 08/08/20 06:29 08/08/20 06:29 Labs: Laboratory WBC 9.1 X10^3/uL (3.6-10.0) 08/08/20 06:29 RBC 3.07 X10^6/uL (3.5-5.4) L 08/08/20 06:29 Hgb 8.9 g/dL (12.0-16.0) L 08/08/20 06:29 Hct 26.8 % (36.0-47.0) L 08/08/20 06:29 MCV 87.1 fL (80.0-100.0) 08/08/20 06:29 MCH 29.1 pg (27.0-34.0) 08/08/20 06:29 MCHC 33.4 g/dL (33.0-35.0) 08/08/20 06:29 RDW 14.8 % (11.6-16.5) 08/08/20 06:29 Plt Count 195 X10^3/uL (150.0-450.0) 08/08/20 06:29 MPV 8.6 fL (7.4-11.0) 08/08/20 06:29 Neut % (Auto) 71.9 % (42.0-75.0) 08/08/20 06:29 Lymph % (Auto) 18.9 % (21.0-51.0) L 08/08/20 06:29 [place] % (Auto) 6.2 % (0.0-13.0) 08/08/20 06:29 Eos % (Auto) 1.8 % (0.9-2.9) 08/08/20 06:29 Baso % (Auto) 1.2 % (0.2-1.0) H 08/08/20 06:29 Neut # (Auto) 6.6 x10^3/uL (2.2-4.8) H 08/08/20 06:29 Lymph # (Auto) 1.7 X10^3/uL (1.3-2.9) 08/08/20 06:29 [place] # (Auto) 0.6 x10^3/uL (0.3-0.8) 08/08/20 06:29 Eos # (Auto) 0.2 x10^3/uL (0.0-0.2) 08/08/20 06:29 Baso # (Auto) 0.1 X10^3/uL (0.0-0.1) 08/08/20 06:29 Absolute Nucleated RBC 0.0 /100WBC 08/08/20 06:29 Sodium 142 mmol/L (136-145) 08/08/20 06:29 Corrected Sodium TNP 08/08/20 06:29 Potassium 3.6 mmol/L (3.5-5.1) 08/08/20 06:29 Chloride 113 mmol/L (98-107) H 08/08/20 06:29 Carbon Dioxide 17.8 mmol/L (21-32) L 08/08/20 06:29 BUN 35 mg/dL (7-18) H 08/08/20 06:29 Creatinine 4.20 mg/dL (0.55-1.02) H 08/08/20 06:29 Est GFR (MDRD) Af Amer 13 (>60) L 08/08/20 06:29 Est GFR (MDRD) Non-Af 11 (>60) L 08/08/20 06:29 Glucose 85 mg/dL (65-99) 08/08/20 06:29 POC Glucose (mg/dL) 103 mg/dL (65-99) H 08/08/20 11:19 Calcium 8.3 mg/dL (8.5-10.1) L 08/08/20 06:29 Corrected Calcium 9.4 mg/dL (8.5-10.1) 08/08/20 06:29 Magnesium 2.1 mg/dL (1.7-2.9) 08/07/20 05:46 Total Bilirubin 0.80 mg/dL (0.2-1.0) 08/08/20 06:29 AST 21 Units/L (15-37) 08/08/20 06:29 ALT 6 Units/L (12-78) L 08/08/20 06:29 Alkaline Phosphatase 70 Units/L (46-116) 08/08/20 06:29 Total Protein 5.6 g/dL (6.4-8.2) L 08/08/20 06:29 Albumin 2.6 g/dL (3.4-5.0) L 08/08/20 06:29 Globulin 3.0 g/dL (2.5-4.5) 08/08/20 06:29 Albumin/Globulin Ratio 0.9 Ratio (1.1-2.1) L 08/08/20 06:29 Amylase 70 Units/L (25-115) 08/03/20 13:51 Lipase 175 Units/L (73-393) 08/03/20 13:51 Specimen Type Clean catch urine 08/03/20 17:40 Urine Color Yellow (YELLOW) 08/03/20 17:40 Urine Appearance Clear (CLEAR) 08/03/20 17:40 Urine pH 6.5 (5.0 - 8.0) 08/03/20 17:40 Ur Specific [place] 1.010 (1.000-1.030) 08/03/20 17:40 Urine Protein 4+ (NEGATIVE) 08/03/20 17:40 Urine Glucose (UA) Negative (NEGATIVE) 08/03/20 17:40 Urine Ketones Negative (NEGATIVE) 08/03/20 17:40 Urine Occult Blood 4+ (NEGATIVE) 08/03/20 17:40 Urine Nitrite Negative (NEGATIVE) 08/03/20 17:40 Urine Bilirubin Negative (NEGATIVE) 08/03/20 17:40 Urine Urobilinogen Normal (NORMAL) 08/03/20 17:40 Ur Leukocyte Esterase Negative (NEGATIVE) 08/03/20 17:40 Urine RBC 10-20 /HPF (0-3) A 08/03/20 17:40 Urine WBC 0-2 /HPF (0-5) 08/03/20 17:40 Ur Squamous Epith Cells Rare /HPF (NEGATIVE) 08/03/20 17:40 Urine Bacteria 1+ /HPF (NEGATIVE) 08/03/20 17:40 Ur Culture Indicated? No/not indicated 08/03/20 17:40 Plan (1) Acute on chronic kidney failure: Status: Acute Qualifiers: Acute renal failure type: unspecified Chronic kidney disease stage: unspecified stage Qualified Code(s): N17.9 - Acute kidney failure, unspecified; N18.9 - Chronic kidney disease, unspecified Plan: NORMAL SALINE AT 150 ML/HR, PEPCID 20MG IV DAILY, PROTONIX 40MG IV BID, ZOFRAN 4MG IV Q6H PRN, HUMULIN R SLIDING SCALE, MEGACE 40MG PO BID, TOPAMAX 25MG PO BID, ALBUMIN 25% IV DAILY, RESUME HOME MEDS (2) Dehydration: Status: Acute (3) Intractable nausea and vomiting: Status: Acute
[2020-08-08] MEDS: APRESOLINE TAB 25 MG PO SCH (13:02)
[2020-08-08] MEDS: XANAX PO PRN (16:39)
[2020-08-08] MEDS ORDERED: NORVASC TAB 5 MG PO SCH (21:00)
[2020-08-08] MEDS: SNACK - Diabetic Appropriate PO SCH (21:30)
[2020-08-08] MEDS: ZETIA TAB 10 MG PO SCH (21:32)
[2020-08-09] MEDS: NS 1000 ML 1,000 ML IV SCH ×2 (04:12→08:16)
[2020-08-09 06:11] LABS: BASOPHILS # (AUTO) 0.1 X10^3/uL (0.0-0.1); BASOPHILS % (AUTO) 1.3 % (0.2-1.0); EOSINOPHILS # (AUTO) 0.2 x10^3/uL (0.0-0.2); EOSINOPHILS % (AUTO) 2.3 % (0.9-2.9); HEMATOCRIT 24.7 % (36.0-47.0); HEMOGLOBIN 8.3 g/dL (12.0-16.0); LYMPHOCYTES # (AUTO) 1.7 X10^3/uL (1.3-2.9); LYMPHOCYTES % (AUTO) 18.3 % (21.0-51.0); MEAN CORPUSCULAR HEMOGLOBIN 29.1 pg (27.0-34.0); MEAN CORPUSCULAR HGB CONC 33.8 g/dL (33.0-35.0); MEAN CORPUSCULAR VOLUME 86.2 fL (80.0-100.0); MEAN PLATELET VOLUME 8.6 fL (7.4-11.0); MONOCYTES # (AUTO) 0.6 x10^3/uL (0.3-0.8); NEUTROPHILS # (AUTO) 6.5 x10^3/uL (2.2-4.8); NEUTROPHILS % (AUTO) 71.1 % (42.0-75.0); PLATELET COUNT 178 X10^3/uL (150.0-450.0); RED BLOOD COUNT 2.86 X10^6/uL (3.5-5.4); RED CELL DISTRIBUTION WIDTH 14.8 % (11.6-16.5); WHITE BLOOD COUNT 9.1 X10^3/uL (3.6-10.0)
[2020-08-09 06:23] LABS: ALANINE AMINOTRANSFERASE 8 Units/L (12-78); ALBUMIN 2.8 g/dL (3.4-5.0); ALKALINE PHOSPHATASE 66 Units/L (46-116); ASPARTATE AMINO TRANSFERASE 20 Units/L (15-37); BLOOD UREA NITROGEN 36 mg/dL (7-18); CALCIUM 8.2 mg/dL (8.5-10.1); CHLORIDE 113 mmol/L (98-107); COR CA(FOR HYPOALB) 9.2 mg/dL (8.5-10.1); SODIUM 141 mmol/L (136-145); TOTAL PROTEIN 5.8 g/dL (6.4-8.2); eGFR NON BLACK RACES 10 (>60)
[2020-08-09 06:40] LABS: CARBON DIOXIDE 14.9 mmol/L (21-32)
[2020-08-09 08:16] VITALS: BP 188/87
[2020-08-09] MEDS: APRESOLINE TAB 25 MG PO SCH (08:28)
[2020-08-09] MEDS: MEGACE PO SCH (08:29)
[2020-08-09] MEDS: ARICEPT TAB 5 MG PO SCH (08:29)
[2020-08-09] MEDS: LOVENOX INJ 30 MG SYR SC SCH (08:29)
[2020-08-09] MEDS: PROTONIX INJ 40 MG VIAL IVP SCH (08:29)
[2020-08-09] MEDS: MAG-OX TAB PO SCH (08:29)
[2020-08-09] MEDS: TOPAMAX PO SCH (08:30)
[2020-08-09] MEDS: TOPROL XL PO SCH (08:30)
[2020-08-09] MEDS: SYNTHROID 50 mcg TAB PO SCH (08:30)
[2020-08-09] MEDS: PEPCID 20 MG IV PREMIX* 20 MG/50 ML BAG IV SCH (08:30)
[2020-08-09] MEDS: ALBUMIN HUMAN 25%- 100 ML 100 ML IV SCH (09:32)
== END 2020-08-09 11:54 | disposition home health service (06) | DRG 684 ==
LOC: ER 12:48 → OBS 16:47 → MED/SURG 08-04 14:20
PROVIDERS: ADMIT Internal Medicine; ATTEND Internal Medicine
DX: M25.532 Pain in left wrist; E11.65 Type 2 diabetes mellitus with hyperglycemia; E86.0 Dehydration; N17.8 Other acute kidney failure; N18.9 Chronic kidney disease, unspecified; R13.12 Dysphagia, oropharyngeal phase; R94.31 Abnormal electrocardiogram [ECG] [EKG]; Z20.822 Contact with and (suspected) exposure to COVID-19; R11.2 Nausea with vomiting, unspecified; I10 Essential (primary) hypertension; R26.89 Other abnormalities of gait and mobility; E78.2 Mixed hyperlipidemia

== ENCOUNTER 2020-09-08 12:50 | Observation (INO) ==
[2020-09-08] MEDS ORDERED: NS 1000 ML 1,000 ML ONE (12:54)
[2020-09-08] MEDS ORDERED: ZOFRAN INJ 4 MG VIAL ONE ×2 (12:54→14:44)
[2020-09-08] MEDS ORDERED: ZOFRAN INJ 4 MG VIAL IVP ONE ×2 (13:11→14:45)
[2020-09-08 13:19] VITALS: BMI 23.1
--- NOTE | 2020-09-08 13:39 | DR.DIZZY ---
HPI Time seen Time Seen by Provider: 09/08/20 13:15 HPI Comment HPI Comment: A 70 female presenting from a doctor's office with abdominal pain (non-specific), general weakness, nausea with vomiting and diarrhea. All this was sudden while at the Doctor's waiting room. She denies chest pain or SOB, she can't characterize the pain. COVID-19 Coronavirus risk:travel/contact w/high risk person: No Has patient experienced Coronavirus symptoms: No Nurses Notes Reviewed Nurses Notes Review: Yes Source History Provided: Patient and Family Member Timing Came on: Suddenly Duration Duration: Constant How lon Duration: Hours Location of Weakness Weakness Location: Generalized Context Onset: At rest Does pt take pot. toxic medication?: No History of: Electrolyte Disorder Stroke Symptoms: None Severity Severity: Normal activity level Modifying factors Worsens: Nothing Associated signs and symptoms Associated Signs and Symptoms: Other (NAusea/vomiting, diarrhea) PMH PMH Past Medical History: Diabetes, Dyslipidemia and Hypertension Past Surgical History: Yes Surgical History: Appendectomy and Hysterectomy Family History Family Medical History: Diabetes Mellitus, Cancer, MD and Hypertension Social History Do you use any recreational Drugs:: No Travel Risk Coronavirus risk:travel/contact w/high risk person: No Has patient experienced Coronavirus symptoms: No ROS Review of Systems Constitutional: Weakness Eyes: No Symptoms Reported ENTM: No Symptoms Reported Respiratoy: No Symptoms Reported Cardiovascular: No Symptoms Reported Gastrointestinal/Abdominal: Abdominal Pain, Diarrhea, Nausea and Vomiting Genitourinary: No Symptoms Reported Neurological: No Symptoms Reported Musculoskeletal: No Symptoms Reported Integumentary: No Symptoms Reported Hematologic/Lymphatic: No Symptoms Reported Endocrine: No Symptoms Reported Psychiatric: No Symptoms Reported PE Vital Signs Vitals: Temperature 98.3 F Pulse Rate 81 Respiratory Rate 22 Blood Pressure [Left Arm] 188/87 Blood Pressure 120/85 O2 Sat by Pulse Oximetry 97 General Limitations: No Limitations General Appearance: Alert and In No Apparent Distress Head Head Exam: Normal Inspection, Atraumatic and Normocephalic Eyes Eye exam: Normal Appearance and EOMI ENT ENT Exam: Normal Exam, Normal Oropharynx, Normal External Ear Exam and Mucous Membranes Moist Neck Neck Exam: Normal Inspection, Full ROM and Trachea Midline Chest Chest Inspection: Normal Inspection and Tenderness Respiratory Respiratory Exam: Normal Lung Sounds Bilat Cardiovascular Cardiovascular Exam: Regular Rate, Normal Rhythm, Normal Heart Sounds, +S1 and +S2 Abdominal Exam Abdominal Exam: Normal Inspection, Normal Bowel Sounds, Soft and Tenderness (epigastric) Abdominal Tenderness: Epigastrium Rectal Rectal Exam: Deferred Extremeties Extremities Exam: Normal Inspection and Full ROM Back Back Exam: Normal Inspection and Full ROM Neurologic Neurological Exam: Alert and Oriented X3 Psychiatric Psychiatric Exam: Normal Affect and Normal Mood Skin Skin Exam: Dry and Normal Color COURSE Reevaluation 1st: Improved Education/Counseling Education/Counseling: Patient, Family, Education and Counseling Educated On: Treatment, Diagnosis, Prognosis and Needs for Follow Up ROR Labs Reviewed Result Diagrams: 09/08/20 13:03 09/08/20 13:03 Laboratory: WBC 12.4 X10^3/uL (3.6-10.0) H 09/08/20 13:03 RBC 3.47 X10^6/uL (3.5-5.4) L 09/08/20 13:03 Hgb 10.0 g/dL (12.0-16.0) L 09/08/20 13:03 Hct 31.1 % (36.0-47.0) L 09/08/20 13:03 MCV 89.8 fL (80.0-100.0) 09/08/20 13:03 MCH 29.0 pg (27.0-34.0) 09/08/20 13:03 MCHC 32.3 g/dL (33.0-35.0) L 09/08/20 13:03 RDW 15.7 % (11.6-16.5) 09/08/20 13:03 Plt Count 281 X10^3/uL (150.0-450.0) 09/08/20 13:03 MPV 11.0 fL (7.4-11.0) 09/08/20 13:03 Neut % (Auto) 71.8 % (42.0-75.0) 09/08/20 13:03 Lymph % (Auto) 22.2 % (21.0-51.0) 09/08/20 13:03 Eddy % (Auto) 3.8 % (0.0-13.0) 09/08/20 13:03 Eos % (Auto) 1.3 % (0.9-2.9) 09/08/20 13:03 Baso % (Auto) 0.9 % (0.2-1.0) 09/08/20 13:03 Neut # (Auto) 8.9 x10^3/uL (2.2-4.8) H 09/08/20 13:03 Lymph # (Auto) 2.8 X10^3/uL (1.3-2.9) 09/08/20 13:03 Eddy # (Auto) 0.5 x10^3/uL (0.3-0.8) 09/08/20 13:03 Eos # (Auto) 0.2 x10^3/uL (0.0-0.2) 09/08/20 13:03 Baso # (Auto) 0.1 X10^3/uL (0.0-0.1) 09/08/20 13:03 Absolute Nucleated RBC 0.1 /100WBC 09/08/20 13:03 Sodium 143 mmol/L (136-145) 09/08/20 13:03 Corrected Sodium 144 mmol/L (136-145) 09/08/20 13:03 Potassium 5.5 mmol/L (3.5-5.1) H 09/08/20 13:03 Chloride 113 mmol/L (98-107) H 09/08/20 13:03 Carbon Dioxide 13.1 mmol/L (21-32) L* 09/08/20 13:03 BUN 54 mg/dL (7-18) H 09/08/20 13:03 Creatinine 5.77 mg/dL (0.55-1.02) H 09/08/20 13:03 Est GFR (MDRD) Af Amer 9 (>60) L 09/08/20 13:03 Est GFR (MDRD) Non-Af 8 (>60) L 09/08/20 13:03 Glucose 156 mg/dL (65-99) H 09/08/20 13:03 Calcium 9.0 mg/dL (8.5-10.1) 09/08/20 13:03 Corrected Calcium 10.0 mg/dL (8.5-10.1) 09/08/20 13:03 Total Bilirubin 0.30 mg/dL (0.2-1.0) 09/08/20 13:03 AST 19 Units/L (15-37) 09/08/20 13:03 ALT 14 Units/L (12-78) 09/08/20 13:03 Alkaline Phosphatase 63 Units/L (46-116) 09/08/20 13:03 Total Protein 6.6 g/dL (6.4-8.2) 09/08/20 13:03 Albumin 2.7 g/dL (3.4-5.0) L 09/08/20 13:03 Globulin 3.9 g/dL (2.5-4.5) 09/08/20 13:03 Albumin/Globulin Ratio 0.7 Ratio (1.1-2.1) L 09/08/20 13:03 Amylase 112 Units/L (25-115) 09/08/20 13:03 Lipase 311 Units/L (73-393) 09/08/20 13:03 SARS CoV-2 RNA Rapid ISAIAS Negative (NEGATIVE) 09/08/20 16:58 Opioid Opioid Risk Tool Age (Wiley box if 16-45): No History of Preadolescent Sexual Abuse: No Total: 0 Total Score Risk Category: Low Risk Copyright: Jacob FOX predicting aberrant behaviors Diagnosis Discharge Problem: Metabolic acidosis, Nausea vomiting and diarrhea, CKD (chronic kidney disease) stage 5, GFR less than 15 ml/min, Chronic GERD, Hypothyroidism due to acquired atrophy of thyroid Hypertension Qualifiers: Hypertension type: essential hypertension Qualified Code(s): I10 - Essential (primary) hypertension ADDITIONAL NOTES Additional Notes Additional Notes: Name: Meagan WILSON#: [id number]: [id number] : 1950Sex: FLocation: ER Order Number(s): [id number](s):ABDOMEN/PELVIS W/O CON Ordering Physician: YOVANA LOGAN Primary Care: Jace Vo Service Date: 09/08/20 Service Time: 1422 EXAM: CT ABDOMEN AND PELVIS WITHOUT INTRAVENOUS CONTRAST HISTORY: Pain. Vomiting. TECHNIQUE: Spiral axial CT images are obtained through the abdomen and pelvis without the administration of intravenous contrast. Additional coronal and sagittal reformatted images are reconstructed. DOSIMETRY: Total DLP 751.1 mGycm; CTDI 15.4 mGy COMPARISON: CT abdomen and pelvis dated August 02, 2020. FINDINGS: GASTROINTESTINAL TRACT: There is a small stable hiatal hernia (approximately 3.7 cm transverse by 3.3 cm AP). There is mild thickening of fluid-filled nondilated small bowel loops in abdomen and pelvis, with associated mesenteric and perienteric edema; DDx includes nonspecific enteritis; cannot rule out inflammatory bowel disease. No evidence for pneumatosis intestinalis, portal venous air, or free intraperitoneal air, but early ischemic bowel disease cannot be excluded in the appropriate clinical setting (in light of severe aortic atherosclerosis). Clinical correlation is advised. There is diverticulosis coli, most prominent in the descending colon and sigmoid regions, without CT evidence for acute diverticulitis. There is no evidence for bowel herniation, bowel obstruction, or colitis. Status post appendectomy. GENITOURINARY SYSTEM: The kidneys are unremarkable. There is no ureteral calculus or stigmata of obstructive uropathy. The urinary bladder is grossly unremarkable for a non-dedicated exam. CT ABDOMEN: There is a small intra-abdominal (perihepatic and perisplenic) ascites. Status post cholecystectomy. Severe aortoiliac atherosclerotic disease, without aneurysm formation. The liver, spleen, pancreas, adrenal glands, and inferior vena cava are within normal limits for a noncontrast CT scan. There is no intra-abdominal or retroperitoneal lymphadenopathy or free air seen. No abdominal herniation is noted. CT PELVIS: There is a small to moderate amount of complex appearing free fluid in the pelvis, presumed to represent sequela of small bowel pathology. Status post hysterectomy. Multilevel DDD is seen in the distal thoracic and lumbar spine, marked by anterior/lateral marginal osteophytosis. The visualized bony structures are otherwise within normal limits. No pelvic sidewall or inguinal lymphadenopathy is seen. No inguinal herniation is noted. No free air is seen. LUNG BASES: The lung bases are clear. IMPRESSION: 1. Small stable hiatal hernia (approximately 3.7 cm transverse by 3.3 cm AP). 2. Mild thickening of fluid-filled nondilated small bowel loops in abdomen and pelvis, with associated mesenteric and perienteric edema; DDx includes nonspecific enteritis; cannot rule out inflammatory bowel disease. 3. No evidence for pneumatosis intestinalis, portal venous air, or free intraperitoneal air, but early ischemic bowel disease cannot be excluded in the appropriate clinical setting (in light of severe aortic atherosclerosis). Clinical correlation is advised. 4. Diverticulosis coli, most prominent in the descending colon and sigmoid regions, without CT evidence for acute diverticulitis. 5. No evidence for bowel herniation, bowel obstruction, or colitis. 6. No evidence for renal stone disease or obstructive uropathy. 7. Small to moderate amount of complex appearing free fluid in the abdomen and pelvis, presumed to represent sequela of small bowel pathology. 8. No free air, mass lesions, or lymphadenopathy seen. 9. Status post cholecystectomy, appendectomy, and hysterectomy. Electronically signed by: Yulissa Hager (Sep 08, 2020 15:25:37) Report Electronically signed: 09/08/20 1527
[2020-09-08] MEDS ORDERED: DILAUDID INJ IVP ONE (13:57)
[2020-09-08] MEDS ORDERED: NS 500 ML IV 500 ML IV ONE (13:58)
[2020-09-08 14:00] LABS: BASOPHILS # (AUTO) 0.1 X10^3/uL (0.0-0.1); BASOPHILS % (AUTO) 0.9 % (0.2-1.0); EOSINOPHILS # (AUTO) 0.2 x10^3/uL (0.0-0.2); EOSINOPHILS % (AUTO) 1.3 % (0.9-2.9); HEMATOCRIT 31.1 % (36.0-47.0); LYMPHOCYTES # (AUTO) 2.8 X10^3/uL (1.3-2.9); LYMPHOCYTES % (AUTO) 22.2 % (21.0-51.0); MEAN CORPUSCULAR HGB CONC 32.3 g/dL (33.0-35.0); MEAN CORPUSCULAR VOLUME 89.8 fL (80.0-100.0); MONOCYTES # (AUTO) 0.5 x10^3/uL (0.3-0.8); MONOCYTES % (AUTO) 3.8 % (0.0-13.0); NEUTROPHILS # (AUTO) 8.9 x10^3/uL (2.2-4.8); NEUTROPHILS % (AUTO) 71.8 % (42.0-75.0); PLATELET COUNT 281 X10^3/uL (150.0-450.0); RED BLOOD COUNT 3.47 X10^6/uL (3.5-5.4); RED CELL DISTRIBUTION WIDTH 15.7 % (11.6-16.5); WHITE BLOOD COUNT 12.4 X10^3/uL (3.6-10.0)
[2020-09-08 14:02] LABS: CREATININE 5.77 mg/dL (0.55-1.02)
[2020-09-08] MEDS ORDERED: DILAUDID INJ ONE (14:12)
[2020-09-08 14:14] LABS: CARBON DIOXIDE 13.1 mmol/L (21-32)
[2020-09-08 14:15] LABS: ALBUMIN 2.7 g/dL (3.4-5.0); TOTAL PROTEIN 6.6 g/dL (6.4-8.2)
--- NOTE | 2020-09-08 15:27 | CT ---
EXAM: CT ABDOMEN AND PELVIS WITHOUT INTRAVENOUS CONTRASTHISTORY: Pain. Vomiting.TECHNIQUE: Spiral axial CT images are obtained through the abdomen and pelvis without the administration of intravenous contrast. Additional coronal and sagittal reformatted images are reconstructed.DOSIMETRY: Total DLP 751.1 mGycm; CTDI 15.4 mGyCOMPARISON: CT abdomen and pelvis dated August 02, 2020.FINDINGS:GASTROINTESTINAL TRACT: There is a small stable hiatal hernia (approximately 3.7 cm transverse by 3.3 cm AP). There is mild thickening of fluid-filled nondilated small bowel loops in abdomen and pelvis, with associated mesenteric and perienteric edema; DDx includes nonspecific enteritis; cannot rule out inflammatory bowel disease. No evidence for pneumatosis intestinalis, portal venous air, or free intraperitoneal air, but early ischemic bowel disease cannot be excluded in the appropriate clinical setting (in light of severe aortic atherosclerosis). Clinical correlation is advised. There is diverticulosis coli, most prominent in the descending colon and sigmoid regions, without CT evidence for acute diverticulitis. There is no evidence for bowel herniation, bowel obstruction, or colitis. Status post appendectomy.GENITOURINARY SYSTEM: The kidneys are unremarkable. There is no ureteral calculus or stigmata of obstructive uropathy. The urinary bladder is grossly unremarkable for a non-dedicated exam.CT ABDOMEN: There is a small intra-abdominal (perihepatic and perisplenic) ascites. Status post cholecystectomy. Severe aortoiliac atherosclerotic disease, without aneurysm formation. The liver, spleen, pancreas, adrenal glands, and inferior vena cava are within normal limits for a noncontrast CT scan. There is no intra-abdominal or retroperitoneal lymphadenopathy or free air seen. No abdominal herniation is noted.CT PELVIS: There is a small to moderate amount of complex appearing free fluid in the pelvis, presumed to represent sequela of small bowel pathology. Status post hysterectomy. Multilevel DDD is seen in the distal thoracic and lumbar spine, marked by anterior/lateral marginal osteophytosis. The visualized bony structures are otherwise within normal limits. No pelvic sidewall or inguinal lymphadenopathy is seen. No inguinal herniation is noted. No free air is seen.LUNG BASES: The lung bases are clear.IMPRESSION:1. Small stable hiatal hernia (approximately 3.7 cm transverse by 3.3 cm AP).2. Mild thickening of fluid-filled nondilated small bowel loops in abdomen and pelvis, with associated mesenteric and perienteric edema; DDx includes nonspecific enteritis; cannot rule out inflammatory bowel disease.3. No evidence for pneumatosis intestinalis, portal venous air, or free intraperitoneal air, but early ischemic bowel disease cannot be excluded in the appropriate clinical setting (in light of severe aortic atherosclerosis). Clinical correlation is advised.4. Diverticulosis coli, most prominent in the descending colon and sigmoid regions, without CT evidence for acute diverticulitis.5. No evidence for bowel herniation, bowel obstruction, or colitis.6. No evidence for renal stone disease or obstructive uropathy.7. Small to moderate amount of complex appearing free fluid in the abdomen and pelvis, presumed to represent sequela of small bowel pathology.8. No free air, mass lesions, or lymphadenopathy seen.9. Status post cholecystectomy, appendectomy, and hysterectomy.Electronically signed by: Yulissa Hager (Sep 08, 2020 15:25:37)
[2020-09-08] MEDS ORDERED: PHENERGAN INJ 25 MG IM ONE ×2 (15:32)
[2020-09-08] MEDS ORDERED: TYLENOL #3 TAB (W/CODEINE) PO ONE (16:30)
[2020-09-08] MEDS ORDERED: SODIUM BICARBONATE 8.4% INJ ADULT 50 ML in NS 250 ML IV 250 ML IV ONE (16:52)
[2020-09-08] MEDS ORDERED: NS 250 ML IV 250 ML IV ONE (18:22)
[2020-09-08] MEDS ORDERED: LR 1000 ML IV 1,000 ML IV ONE (18:22)
[2020-09-08] MEDS ORDERED: SODIUM BICARBONATE 8.4% INJ ADULT ONE (18:22)
[2020-09-08] MEDS: LR 1000 ML IV 1,000 ML IV SCH (18:22)
[2020-09-08] MEDS ORDERED: CATAPRES-TTS-2 TD SCH (18:44)
[2020-09-08] MEDS ORDERED: BENTYL CAP 10 MG PO PRN (18:44)
[2020-09-08] MEDS: XANAX PO SCH (20:39)
[2020-09-08] MEDS: NORVASC TAB 5 MG PO SCH (20:41)
[2020-09-08] MEDS: MAG-OX TAB PO SCH (20:42)
[2020-09-08] MEDS: LOTENSIN TAB 10 MG PO SCH (20:42)
[2020-09-08] MEDS: TOPAMAX PO SCH (20:43)
[2020-09-08] MEDS: MEGACE PO SCH (20:43)
[2020-09-08] MEDS: APRESOLINE TAB 25 MG PO SCH (22:10)
[2020-09-09] MEDS: APRESOLINE TAB 25 MG PO SCH ×3 (05:06→21:06)
[2020-09-09] MEDS: LR 1000 ML IV 1,000 ML IV SCH ×3 (05:10→19:53)
[2020-09-09 06:05] LABS: BILIRUBIN,URINE NEGATIVE (NEGATIVE); BLOOD/HEMOGLOBIN,URINE NEGATIVE (NEGATIVE); GLUCOSE, URINE 1+ (NEGATIVE); KETONES,URINE NEGATIVE (NEGATIVE); LEUKOCYTE ESTERASE ,URINE 1+ (NEGATIVE); NITRITES,URINE NEGATIVE (NEGATIVE); PROTEIN,URINE 4+ (NEGATIVE); UROBILINOGEN,URINE NORMAL (NORMAL)
--- NOTE | 2020-09-09 06:08 | RAD ---
HISTORYABDOMINAL PAIN, INTRACTABLE N/V HX DM, HTN, RENAL DISEASE. SX HYST, APPENDIX.[id number]/12/2020FINDINGSEvaluation of the abdomen demonstrates a normal bowel ga s pattern. There is a mild amount of fecal material throughout the colon. Surgical clips seen in the right upper quadrant. No pathological soft tissue mass or calcification can be observed. The bony st ructures are grossly intact.IMPRESSIONNo evidence for acute abdominal pathology identified.Electronic ally signed by: Rick Hicks (Sep 09, 2020 06:06:05)
[2020-09-09 06:14] LABS: AMORPHOUS SEDIMENT,UR 1+ /HPF (NEGATIVE); APPEARANCE,URINE HAZY (CLEAR); BACTERIA,URINE TRACE /HPF (NEGATIVE); COLOR,URINE YELLOW (YELLOW); HYALINE CASTS, URINE FEW /LPF (NEGATIVE); RBC,URINE 0-2 /HPF (0-3); SQUAMOUS EPITHELIAL CELL,UR MANY /HPF (NEGATIVE)
[2020-09-09 06:34] LABS: ALANINE AMINOTRANSFERASE 12 Units/L (12-78); ALBUMIN 2.2 g/dL (3.4-5.0); ALKALINE PHOSPHATASE 52 Units/L (46-116); ASPARTATE AMINO TRANSFERASE 19 Units/L (15-37); BLOOD UREA NITROGEN 58 mg/dL (7-18); CALCIUM 8.4 mg/dL (8.5-10.1); CARBON DIOXIDE 15.3 mmol/L (21-32); CHLORIDE 113 mmol/L (98-107); COR CA(FOR HYPOALB) 9.8 mg/dL (8.5-10.1); CREATININE 5.88 mg/dL (0.55-1.02); SODIUM 143 mmol/L (136-145); TOTAL PROTEIN 5.3 g/dL (6.4-8.2); eGFR NON BLACK RACES 8 (>60)
[2020-09-09 06:41] LABS: BASOPHILS # (AUTO) 0.1 X10^3/uL (0.0-0.1); BASOPHILS % (AUTO) 1.2 % (0.2-1.0); EOSINOPHILS % (AUTO) 0.5 % (0.9-2.9); HEMATOCRIT 22.9 % (36.0-47.0); LYMPHOCYTES % (AUTO) 24.6 % (21.0-51.0); MEAN CORPUSCULAR HEMOGLOBIN 29.6 pg (27.0-34.0); MEAN CORPUSCULAR HGB CONC 33.5 g/dL (33.0-35.0); MEAN CORPUSCULAR VOLUME 88.3 fL (80.0-100.0); MEAN PLATELET VOLUME 9.8 fL (7.4-11.0); MONOCYTES # (AUTO) 0.4 x10^3/uL (0.3-0.8); MONOCYTES % (AUTO) 5.3 % (0.0-13.0); NEUTROPHILS # (AUTO) 5.5 x10^3/uL (2.2-4.8); NEUTROPHILS % (AUTO) 68.4 % (42.0-75.0); PLATELET COUNT 180 X10^3/uL (150.0-450.0); RED BLOOD COUNT 2.59 X10^6/uL (3.5-5.4); RED CELL DISTRIBUTION WIDTH 15.5 % (11.6-16.5)
[2020-09-09 06:44] LABS: HEMOGLOBIN 7.7 g/dL (12.0-16.0)
[2020-09-09 07:11] LABS: LACTIC ACID 0.7 mmol/L (0.4-2.0)
[2020-09-09] MEDS: ARICEPT TAB 5 MG PO SCH (09:19)
[2020-09-09] MEDS: MEGACE PO SCH ×2 (09:19→21:07)
[2020-09-09] MEDS: K-DUR TAB 20 MEQ PO SCH ×2 (09:19→09:27)
[2020-09-09] MEDS: ULTRAM PO SCH (09:20)
[2020-09-09] MEDS: PriLOSEC PO SCH (09:21)
[2020-09-09] MEDS: TOPROL XL PO SCH (09:21)
[2020-09-09] MEDS: TOPAMAX PO SCH ×2 (09:22→21:06)
[2020-09-09] MEDS: MAG-OX TAB PO SCH ×2 (09:22→21:06)
[2020-09-09] MEDS: SYNTHROID 50 mcg TAB PO SCH (09:23)
[2020-09-09] MEDS ORDERED: PROCRIT or EPOGEN VIAL 10,000 UNITS SC ONE (09:57)
--- NOTE | 2020-09-09 11:06 | DR.H&P ---
H&P - History & Physical for Day of: H&P Date: 09/08/20 - Chief Complaint Chief Complaint: GENERALIZED ABDOMINAL PAIN, GENERALIZED WEAKNESS, HYPOTENSION, NAUSEA, VOMITING, AND DIARRHEA - History of Present Illness History of Present Illness: IS A 70 YEAR OLD PATIENT OF OURS WHO PRESENTED TO THE ER WITH COMPLAINTS OF GENERALIZED ABDOMINAL PAIN, GENERALIZED WEAKNESS, HYPOTENSION, NAUSEA, VOMITING, AND DIARRHEA. SHE ALSO REPORTS FEELING LIKE SHE WAS GOING TO PASS OUT. SYMPTOMS CAME ON SUDDENLY WHILE SHE WAS IN THE DOCTORS OFFICE. SHE DENIES CHEST PAIN OR SHORTNESS OF BREATH. SHE REPORTS THAT PAIN IS DESCRIBED CRAMPING AND WAS RATED A 5/10 ON ADMISSION. HER PMH INCLUDES DIABETES TYPE II, DYSLIPIDEMIA,TIA, CAD, HTN, DEMENTIA, CHRONIC KIDNEY DISEASE, APPENDECTOMY, CHOLECYSTECTOMY, AND HYSTERECTOMY. SHE WAS HOSPITALIZED ABOUT A MONTH AGO FOR SIMILAR SYMPTOMS. ON ARRIVAL TO THE ER, VITALS WERE 98.3-89-20-100%-109/51. LABS WERE OBTAINED. ABNORMAL LAB VALUES INCLUDE THE FOLLOWING: WBC 12.4, RBC 3.47, HGB 10.0, HCT 31.1, POTASSIUM 5.5, CHLORIDE 113, CARBON DIOXIDE 13.1, BUN 54, CREATININE 5.77, GLUCOSE 156, ALBUMIN 2.7. A URINALYSIS WAS OBTAINED AND REVEALED WBC 3-5, RBC 0-2, LEUKOCYTES 1+, BACTERIA TRACE. AN ABDOMEN/PELVIS CT WITHOUT CONTRAST WAS OBTAINED AND REVEALED: 1. Small stable hiatal hernia (approximately 3.7 cm transverse by 3.3 cm AP). 2. Mild thickening of fluid-filled nondilated small bowel loops in abdomen and pelvis, with associated mesenteric and perienteric edema; DDx includes nonspecific enteritis; cannot rule out inflammatory bowel disease. 3. No evidence for pneumatosis intestinalis, portal venous air, or free intraperitoneal air, but early ischemic bowel disease cannot be excluded in the appropriate clinical setting (in light of severe aortic atherosclerosis). 4. Diverticulosis coli, most prominent in the descending colon and sigmoid regions, without CT evidence for acute diverticulitis. 5. No evidence for bowel herniation, bowel obstruction, or colitis. 6. No evidence for renal stone disease or obstructive uropathy. 7. Small to moderate amount of complex appearing free fluid in the abdomen and pelvis, presumed to represent sequela of small bowel pathology. 8. No free air, mass lesions, or lymphadenopathy seen. 9. Status post cholecystectomy, appendectomy, and hysterectomy. IN THE ER, SHE WAS GIVEN A NORMAL SALINE BOLUS, ZOFRAN 4MG IV X 2 DOSES, DILAUDID 1MG IV X 1, AND PHENERGAN 25MG IM X 1 DOSE. SHE REPORTED ONLY SLIGHT IMPROVEMENT IN SYMPTOMS. AFTER FLUIDS, HER BLOOD PRESSURE DID INCREASE TO 143/63. SHE WAS ADMITTED TO THE HOSPITAL FOR FURTHER EVALUATION AND TREATMENT OF DEHYDRATION, INTRACTABLE NAUSEA AND VOMITING, INTRACTABLE ABDOMINAL PAIN, ANEMIA, CHRONIC KIDNEY DISEASE-STAGE 5. SHE WAS STARTED ON LACTATED RINGERS AT 80 ML/HR, HEMOCYTE PLUS 1 CAPSULE DAILY, PROCRIT 5,000 UNITS SC X 1 DOSE. HER HOME MEDICATIONS WERE RESUMED. WE WILL OBTAIN ORTHOSTATIC BLOOD PRESSURES. WE WILL CONSULT WITH , GENERAL SURGEON DUE TO INTRACTABLE SYMPTOMS AND CT FINDINGS. OTHERWISE, WE PLAN TO FOLLOW UP WITH AM LABS AND CONTINUE TO MONITOR. TIME SPENT ON CLINICAL ASSESSMENT, REVIEWING LABS AND IMAGING, DECISION MAKING, DOCUMENTATION WAS GREATER THAN 75 MINUTES. - Past Medical History Past Medical History: Hypertension, Dyslipidemia, Diabetes Additional Medical History: fibromyalgia, rheumatoid arthritis - Past Surgical History Surgical History: Appendectomy, Hysterectomy Additional Surgical History: cataract removal - Family History Family Medical History: Diabetes Mellitus, Cancer, NE, Hypertension - Social History Does patient currently use any type of tobacco product: No Have you used tobacco products in the last 12 months: No Type of Tobacco Use: None Does any household member use tobacco: No Alcohol Use: None - Medications Home Medications: cefoperazone [From Cefobid] Allergy (Verified 08/03/20 13:49) ciprofloxacin [From Cipro] Allergy (Verified 08/03/20 13:49) clindamycin Allergy (Verified 08/03/20 13:49) gentamicin Allergy (Verified 08/03/20 13:49) hydroxyzine [From Vistaril] Allergy (Verified 08/03/20 13:49) memantine [From Namenda] Allergy (Verified 08/03/20 13:49) Penicillins Allergy (Verified 08/03/20 13:49) CONTINUE taking the following medications hydralazine 50 mg PO TID 09/08/20 [History] magnesium oxide 400 mg PO BID 09/08/20 [History] - Review of Systems Constitutional: Weakness Eyes: No Symptoms Reported ENT: No Symptoms Reported Respiratory: No Symptoms Reported Cardiovascular: Light Headedness, Other (NEAR SYNCOPE ) Gastrointestinal: See HPI, Nausea, Vomiting, Abdominal Pain, Diarrhea. denies: Constipation Genitourinary: No Symptoms Reported Musculoskeletal: No Symptoms Reported Skin: No Symptoms Reported Neurological: Weakness, Confusion - Physical Exam Vital Signs: Temperature 98.0 F Pulse Rate [Right Radial] 104 Pulse Rate 90 Respiratory Rate 22 Blood Pressure [Left Arm] 135/62 Blood Pressure 126/60 O2 Sat by Pulse Oximetry 99 Oriented: Person Eyes: Normal Ear: Normal Nose: Normal Throat: Normal Respiratory: Diminished Throughout Cardiovascular: Normal : Normal Auscultation: Bowel Sounds: Normal Palpation: Normal Tenderness: Diffuse, Moderate. negative: Rebound, Guarding, Rigidity Skin: Decreased Turgur Musculoskeletal: Normal Psychiatric: Normal Mood Description: Calm Affect: Angry Speech Pattern: Clear - Assessment/Plan (1) Dehydration Status: Acute Plan: ADMIT, LACTATED RINGERS AT 80 ML/HR, HEMOCYTE PLUS 1 CAPSULE DAILY, PROCRIT 5,000 UNITS SC X 1 DOSE, RESUME HOME MEDS, CONSULT GENERAL SURGERY (2) Intractable nausea and vomiting Status: Acute (3) Abdominal pain Qualifiers: Abdominal location: generalized Qualified Code(s): R10.84 - Generalized abdominal pain Status: Acute (4) Anemia Qualifiers: Anemia type: iron deficiency Iron deficiency anemia type: unspecified iron deficiency Qualified Code(s): D50.9 - Iron deficiency anemia, unspecified Status: Acute (5) CKD (chronic kidney disease) stage 5, GFR less than 15 ml/min Status: Chronic - Allergies Allergies/Adverse Reactions: Allergies Allergy/AdvReac Type Severity Reaction Status Date / Time cefoperazone [From Cefobid] Allergy Verified 08/03/20 13:49 ciprofloxacin [From Cipro] Allergy Verified 08/03/20 13:49 clindamycin Allergy Verified 08/03/20 13:49 gentamicin Allergy Verified 08/03/20 13:49 hydroxyzine [From Vistaril] Allergy Verified 08/03/20 13:49 memantine [From Namenda] Allergy Verified 08/03/20 13:49 Penicillins Allergy Verified 08/03/20 13:49
[2020-09-09 11:48] LABS: CKMB % 1.5 % (<4); CREATINE KINASE 236 Units/L (26-192); CREATINE KINASE MB 3.5 ng/mL (0-4.0); TROPONIN I < 0.02 ng/mL (0-1.5)
[2020-09-09] MEDS: HEMOCYTE-PLUS PO SCH (14:32)
[2020-09-09] MEDS: LOTENSIN TAB 10 MG PO SCH (21:05)
[2020-09-09] MEDS: XANAX PO SCH (21:06)
[2020-09-09] MEDS: NORVASC TAB 5 MG PO SCH (21:07)
--- NOTE | 2020-09-10 05:32 | RAD ---
HISTORYABDOMINAL PAIN, INTRACTABLE N/V HX DM, HTN, RENAL DISEASE. SX HYST, APPENDIX.[id number]/2021FINDINGSEvaluation of the abdomen demonstrates a normal bowel ga s pattern. There is a moderate amount of fecal material throughout the colon. Surgical clips in the r ight upper quadrant. No pathological soft tissue mass or calcification can be observed. The bony str uctures are grossly intact.IMPRESSIONNo evidence for acute abdominal pathology identified.Electronica lly signed by: Rick Hicks (Sep 10, 2020 05:29:54)
[2020-09-10] MEDS: APRESOLINE TAB 25 MG PO SCH ×2 (05:33→15:22)
[2020-09-10] MEDS: LR 1000 ML IV 1,000 ML IV SCH ×2 (05:36→09:57)
[2020-09-10 05:39] LABS: BASOPHILS # (AUTO) 0.1 X10^3/uL (0.0-0.1); BASOPHILS % (AUTO) 1.2 % (0.2-1.0); EOSINOPHILS # (AUTO) 0.2 x10^3/uL (0.0-0.2); EOSINOPHILS % (AUTO) 2.2 % (0.9-2.9); HEMATOCRIT 21.3 % (36.0-47.0); LYMPHOCYTES # (AUTO) 2.7 X10^3/uL (1.3-2.9); LYMPHOCYTES % (AUTO) 36.7 % (21.0-51.0); MEAN CORPUSCULAR HEMOGLOBIN 28.6 pg (27.0-34.0); MEAN CORPUSCULAR HGB CONC 32.1 g/dL (33.0-35.0); MEAN CORPUSCULAR VOLUME 89.1 fL (80.0-100.0); MONOCYTES # (AUTO) 0.4 x10^3/uL (0.3-0.8); MONOCYTES % (AUTO) 5.7 % (0.0-13.0); NEUTROPHILS % (AUTO) 54.2 % (42.0-75.0); PLATELET COUNT 173 X10^3/uL (150.0-450.0); RED BLOOD COUNT 2.39 X10^6/uL (3.5-5.4); WHITE BLOOD COUNT 7.3 X10^3/uL (3.6-10.0)
[2020-09-10 05:50] LABS: ALANINE AMINOTRANSFERASE 14 Units/L (12-78); ALBUMIN 2.2 g/dL (3.4-5.0); ALKALINE PHOSPHATASE 51 Units/L (46-116); ASPARTATE AMINO TRANSFERASE 18 Units/L (15-37); BLOOD UREA NITROGEN 51 mg/dL (7-18); CALCIUM 7.7 mg/dL (8.5-10.1); CARBON DIOXIDE 15.4 mmol/L (21-32); CHLORIDE 113 mmol/L (98-107); COR CA(FOR HYPOALB) 9.1 mg/dL (8.5-10.1); CREATININE 5.42 mg/dL (0.55-1.02); SODIUM 142 mmol/L (136-145); TOTAL PROTEIN 5.2 g/dL (6.4-8.2); eGFR NON BLACK RACES 8 (>60)
[2020-09-10 05:55] LABS: HEMOGLOBIN 6.8 g/dL (12.0-16.0)
[2020-09-10] MEDS ORDERED: BENADRYL CAP/TAB 25 MG PO ONE (09:34)
[2020-09-10] MEDS ORDERED: TYLENOL 325 MG TAB PO ONE (09:35)
[2020-09-10] MEDS: ARICEPT TAB 5 MG PO SCH (09:54)
[2020-09-10] MEDS: K-DUR TAB 20 MEQ PO SCH (09:55)
[2020-09-10] MEDS: PriLOSEC PO SCH (09:56)
[2020-09-10] MEDS: HEMOCYTE-PLUS PO SCH (09:56)
[2020-09-10] MEDS: TOPAMAX PO SCH (09:57)
[2020-09-10] MEDS: ULTRAM PO SCH (09:58)
[2020-09-10] MEDS: MAG-OX TAB PO SCH (09:59)
[2020-09-10] MEDS: MEGACE PO SCH (09:59)
[2020-09-10] MEDS: TOPROL XL PO SCH (09:59)
[2020-09-10] MEDS: SYNTHROID 50 mcg TAB PO SCH (09:59)
[2020-09-10] MEDS ORDERED: NS 250 ML IV 250 ML IV ONE ×2 (12:14→15:50)
[2020-09-10 15:47] VITALS: BP 153/70
[2020-09-10 20:46] LABS: HEMATOCRIT 33.6 % (36.0-47.0)
== END 2020-09-10 20:35 | disposition home health service (06) ==
LOC: ER 12:50 → MED/SURG 12:50
PROVIDERS: ADMIT Family Medicine; ATTEND Internal Medicine
DX: K21.9 Gastro-esophageal reflux disease without esophagitis; E78.2 Mixed hyperlipidemia; R11.2 Nausea with vomiting, unspecified; K44.9 Diaphragmatic hernia without obstruction or gangrene; R97.0 Elevated carcinoembryonic antigen [CEA]; E03.8 Other specified hypothyroidism; R10.84 Generalized abdominal pain; D50.8 Other iron deficiency anemias; E11.65 Type 2 diabetes mellitus with hyperglycemia; D63.1 Anemia in chronic kidney disease; E11.22 Type 2 diabetes mellitus with diabetic chronic kidney disease; E87.2 Acidosis; M79.7 Fibromyalgia; I12.0 Hypertensive chronic kidney disease with stage 5 chronic kidney disease or end stage renal disease; N18.5 Chronic kidney disease, stage 5; F41.8 Other specified anxiety disorders; E86.0 Dehydration; Z20.822 Contact with and (suspected) exposure to COVID-19; R19.7 Diarrhea, unspecified; I95.89 Other hypotension; R26.89 Other abnormalities of gait and mobility